=== PATIENT | male | born 1950 | race Caucasian/White ===

== ENCOUNTER 2022-07-01 11:46 | Inpatient (IN) | payer MEDICARE ==
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
[~2022-07-01] VITALS: Ht 182.9 cm; Wt 92.4 kg
[2022-07-01 11:45] VITALS: BP 139/81
[~2022-07-01 11:46] MED LIST: ACETAMINOPHEN 325 MG TABLET PO PRN; ALPRAZolam 0.25 MG (XANAX) TAB PO PRN; BISACODYL 10 MG SUPP (DULCOLAX) PR PRN; CALCIUM CARBONATE 500 MG (TUMS) TAB.CHEW PO PRN; DOCUSATE SODIUM 100 MG (COLACE) CAP PO PRN; FLEET ENEMA ADULT 1 EA BTL PR PRN; LOPERAMIDE 2 MG (IMODIUM) TABLET PO PRN; MELATONIN 3 MG TABLET PO PRN; ONDANSETRON 4 MG (ZOFRAN) ORAL DISSOLVE TAB PO PRN; diphenhydrAMINE 25 MG TAB (BENADRYL) PO PRN; guaiFENesin/CODEINE (ROBITUSSIN AC) 10ML UDC PO PRN
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
--- OUTSIDE RECORDS SUMMARY | 2022-07-01 11:56 | XMS REPORT | Encounter Summary ---
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 AND MG/DL 9:59 PM LAB MEDICINE POC CDT Anatomical Location / Laterality Collection Method / Volume Derrell ection Time Received Time Specimen (Source) 06/30/2022 9:58 PM CDT 07/01/19 9:59 PM CDT Jason Riggs MD OTHER LABORATORY City/State/ZIP Code Phone Number Performing Address [place] [address] [facility] AND [address] LAB MEDICINE POC * (ABNORMAL) POC GLUCOSE (06/30/2022 4:07 PM CDT) Pathologist Signature Component Value Ref Test Method Analysis Performed A t Range Time Glucose, POC 123 (H) 70 - 100 06/30/2022 [facility] DEPT PA TH AND MG/DL 4:08 PM LAB MEDICINE POC CDT Anatomical Location / Laterality Collection Method / Volume Derrell ection Time Received Time Specimen (Source) 06/30/2022 4:07 PM CDT 07/01/19 4:08 PM CDT Jason Riggs MD OTHER LABORATORY City/State/ZIP Code Phone Number Performing Address [place] [address] [employer] DEPT PATH AND [address] [facility] LAB MEDICINE POC * (ABNORMAL) POC GLUCOSE (06/30/2022 12:57 PM CDT) Pathologist Signature Component Value Ref Test Method Analysis Performed A t Range Time Glucose, POC 161 (H) 70 - 100 06/30/2022 [facility] DEPT PA TH AND MG/DL 12:58 PM LAB MEDICINE POC CDT Anatomical Location / Laterality Collection Method / Volume Derrell ection Time Received Time Specimen (Source) 06/30/2022 12:57 PM CDT 07/01/19 12:58 PM CDT Jason Riggs MD OTHER LABORATORY City/State/ZIP Code Phone Number Performing [place] [address] [employer] DEPT PATH AND [address] [facility] LAB MEDICINE POC * (ABNORMAL) POC GLUCOSE (06/30/2022 7:59 AM CDT) Pathologist Signature Component Value Ref Test Method Analysis Performed A t Range Time Glucose, POC 151 (H) 70 - 100 06/30/2022 [facility] DEPT PA TH AND MG/DL 8:00 AM LAB MEDICINE POC CDT Anatomical Location / Laterality Collection Method / Volume Derrell ection Time Received Time Specimen (Source) 06/30/2022 7:59 AM CDT 07/01/19 8:00 AM CDT Jason Riggs MD OTHER LABORATORY City/State/ZIP Code Phone Number Performing [place] [address] [employer] DEPT PATH AND [address] [facility] LAB MEDICINE POC * PHOSPHORUS (06/30/2022 5:47 AM CDT) Pathologist Signature Component Value Ref Test Method Analysis Performed A t Range Time Phosphorus 4.0 2.0 - 06/30/2022 [facility] DEPT PAT H AND 4.5 6:50 AM LAB MEDICINE MG/DL CDT Anatomical Location / Laterality Collection Method / Volume Derrell ection Time Received Time Specimen (Source) BLOOD / Unknown 06/30/2022 5:47 AM CDT 07/01/19 6:13 AM CDT Jason Riggs MD LABORATORY ORDERABLES City/State/ZIP Code Phone Number Performing [place] [address] [facility] DEPT PATH AND [address] LAB MEDICINE * MAGNESIUM (06/30/2022 5:47 AM CDT) Pathologist Signature Component Value Ref Test Method Analysis Performed A t Range Time Magnesium 2.1 1.6 - 06/30/2022 [facility] DEPT PAT H AND 2.6 6:50 AM LAB MEDICINE mg/dL CDT Anatomical Location / Laterality Collection Method / Volume Derrell ection Time Received Time Specimen (Source) BLOOD / Unknown 06/30/2022 5:47 AM CDT 07/01/19 23 6:13 AM CDT Jason Riggs MD LABORATORY ORDERABLES City/State/ZIP Code Phone Number Performing [place] [address] [facility] DEPT PATH AND [address] [facility] LAB MEDICINE * (ABNORMAL) CBC (06/30/2022 5:47 AM CDT) Pathologist Signature Component Value Ref Test Method Analysis Performed A t Range Time White Blood Cells 9.9 4.5 - 06/30/2022 [facility] DE PT PATH AND 11.0 6:28 AM LAB MEDICINE K/UL CDT RBC 3.37 (L) 4.4 - 06/30/2022 [facility] DEPT PAT H AND 5.5 M/UL 6:28 AM LAB MEDICINE CDT Hemoglobin 10.6 (L) 13.5 - 06/30/2022 [facility] DEPT PAT H AND 16.5 6:28 AM LAB MEDICINE GM/DL CDT Hematocrit 30.0 (L) 40 - 50 06/30/2022 [facility] DEPT PAT H AND % 6:28 AM LAB MEDICINE CDT MCV 88.9 80 - 100 06/30/2022 [facility] DEPT PAT H AND FL 6:28 AM LAB MEDICINE CDT MCH 31.6 26 - 34 06/30/2022 [facility] DEPT PAT H AND PG 6:28 AM LAB MEDICINE CDT MCHC 35.5 32.0 - 06/30/2022 [facility] DEPT PAT H AND 36.0 6:28 AM LAB MEDICINE G/DL CDT RDW 12.8 11 - 15 06/30/2022 [facility] DEPT PAT H AND % 6:28 AM LAB MEDICINE CDT Platelet Count 234 150 - 06/30/2022 [facility] DEPT PATH AND 400 K/UL 6:28 AM LAB MEDICINE CDT MPV 7.8 7 - 11 06/30/2022 [facility] DEPT PAT H AND FL 6:28 AM LAB MEDICINE CDT Anatomical Location / Laterality Collection Method / Volume Derrell ection Time Received Time Specimen (Source) BLOOD / Unknown 06/30/2022 5:47 AM CDT 07/01/19 6:13 AM CDT Jason Riggs MD LABORATORY ORDERABLES City/State/ZIP Code Phone Number Performing [place] [address] [facility] DEPT PATH AND [address] [facility]. LAB MEDICINE * (ABNORMAL) BASIC METABOLIC PANEL (06/30/2022 5:47 AM CDT) Pathologist Signature Component Value Ref Test Method Analysis Performed A t Range Time Sodium 134 (L) 137 - 06/30/2022 [facility] DEPT PAT H AND 147 6:50 AM LAB MEDICINE MMOL/L CDT Potassium 4.3 3.5 - 06/30/2022 [facility] DEPT PAT H AND 5.1 6:50 AM LAB MEDICINE MMOL/L CDT Chloride 98 98 - 110 06/30/2022 [facility] DEPT PAT H AND MMOL/L 6:50 AM LAB MEDICINE CDT CO2 27 21 - 30 06/30/2022 [facility] DEPT PAT H AND MMOL/L 6:50 AM LAB MEDICINE CDT Anion Gap 9 3 - 12 06/30/2022 [facility] DEPT PAT H AND 6:50 AM LAB MEDICINE CDT Glucose 139 (H) 70 - 100 06/30/2022 [facility] DEPT PAT H AND MG/DL 6:50 AM LAB MEDICINE CDT Blood Urea Nitrogen 12 7 - 25 06/30/2022 [facility] DEPT PATH AND MG/DL 6:50 AM LAB MEDICINE CDT Creatinine 0.64 0.4 - 06/30/2022 [facility] DEPT PAT H AND 1.24 6:50 AM LAB MEDICINE MG/DL CDT Calcium 8.5 8.5 - 06/30/2022 [facility] DEPT PAT H AND 10.6 6:50 AM LAB MEDICINE MG/DL CDT eGFR >60 >60 06/30/2022 [facility] DEPT PAT H AND mL/min 6:50 AM LAB MEDICINE CDT Comment: eGFR calculated using the CKD-EPIcr_R equation Anatomical Location / Laterality Collection Method / Volume Derrell ection Time Received Time Specimen (Source) BLOOD / Unknown 06/30/2022 5:47 AM CDT 07/01/19 6:13 AM CDT Jason Riggs MD LABORATORY ORDERABLES City/State/ZIP Code Phone Number Performing [place] [address] [facility] PATH AND [address] LAB MEDICINE * (ABNORMAL) POC GLUCOSE (06/29/2022 9:45 PM CDT) Pathologist Signature Component Value Ref Test Method Analysis Performed A t Range Time Glucose, POC 150 (H) 70 - 100 06/29/2022 [facility] DEPT PA TH AND MG/DL 9:46 PM LAB MEDICINE POC CDT Anatomical Location / Laterality Collection Method / Volume Derrell ection Time Received Time Specimen (Source) 06/29/2022 9:45 PM CDT 06/30/19 9:46 PM CDT Jason Riggs MD OTHER LABORATORY City/State/ZIP Code Phone Number Performing [place] [address] [facility] DE[facility] PATH AND [address] LAB MEDICINE POC * (ABNORMAL) POC GLUCOSE (06/29/2022 5:18 PM CDT) Pathologist Signature Component Value Ref Test Method Analysis Performed A t Range Time Glucose, POC 184 (H) 70 - 100 06/29/2022 [facility] DEPT PA TH AND MG/DL 5:19 PM LAB MEDICINE POC CDT Anatomical Location / Laterality Collection Method / Volume Derrell ection Time Received Time Specimen (Source) 06/29/2022 5:18 PM CDT 06/30/19 5:19 PM CDT Jason Riggs MD OTHER LABORATORY City/State/ZIP Code Phone Number Performing [place] [address] [facility] DE[facility] PATH AND [address] LAB MEDICINE POC * COVID-19 (SARS-COV-2) PCR (06/29/2022 1:25 PM CDT) Pathologist Signature Component Value Ref Test Method Analysis Performed A t Range Time COVID-19 FLOCKED SWAB 06/29/2022 [facility] DEPT PATH AND (SARS-CoV-2) PCR NASOPHARYNGE 1:12 PM LAB MEDICINE Source AL CDT COVID-19 NOT DETECTED DN-NOT 06/29/2022 [facility] AND (SARS-CoV-2) PCR DETECTED 4:32 [...] performance characteristics have been verified by the [facility] clinical laboratory. Fact sheet for providers: https://www.fda.gov/ media/525318/downloa d Fact sheet for patients: https://www.fda.gov/ media/006465/downloa d Anatomical Location / Laterality Collection Method / Volume Derrell ection Time Received Time Specimen (Source) NASOPHARYNGEAL STRUCTURE / Unknown 06/29/2022 1 :25 PM CDT 06/29/2022 1:32 PM CDT [employer] Celeste Landry MICROBIOLOGY ORDERABLES MASTER CONTROL OPERATOR-MAGNETIC HEALER City/State/ZIP Code Phone Number Performing Address Organization [place], [place] [id number] [place] [address] PATH AND [address] [facility] LAB MEDICINE * (ABNORMAL) POC GLUCOSE (06/29/2022 11:48 AM CDT) Pathologist Signature Component Value Ref Test Method Analysis Performed A t Range Time Glucose, POC 183 (H) 70 - 100 06/29/2022 [facility] AND MG/DL 11:49 AM LAB MEDICINE POC CDT Anatomical Location / Laterality Collection Method / Volume Derrell ection Time Received Time Specimen (Source) 06/29/2022 11:48 AM CDT 06/30/19 11:49 AM CDT Jason Riggs MD OTHER LABORATORY City/State/ZIP Code Phone Number Performing [place] [address] [facility] AND [address] LAB MEDICINE POC * (ABNORMAL) POC GLUCOSE (06/29/2022 8:28 AM CDT) Pathologist Signature Component Value Ref Test Method Analysis Performed A t Range Time Glucose, POC 185 (H) 70 - 100 06/29/2022 [facility] DEPT PA TH AND MG/DL 8:29 AM LAB MEDICINE POC CDT Anatomical Location / Laterality Collection Method / Volume Derrell ection Time Received Time Specimen (Source) 06/29/2022 8:28 AM CDT 06/30/19 8:29 AM CDT Jason Riggs MD OTHER LABORATORY City/State/ZIP Code Phone Number Performing [place] [address] [facility] DEPT PATH AND [address] LAB MEDICINE POC * PHOSPHORUS (06/29/2022 2:53 AM CDT) Pathologist Signature Component Value Ref Test Method Analysis Performed A t Range Time Phosphorus 3.8 2.0 - 06/29/2022 [facility] DEPT PAT H AND 4.5 3:34 AM LAB MEDICINE MG/DL CDT Anatomical Location / Laterality Collection Method / Volume Derrell ection Time Received Time Specimen (Source) BLOOD / Unknown 06/29/2022 2:53 AM CDT 06/30/19 3:02 AM CDT Jason Riggs MD LABORATORY ORDERABLES City/State/ZIP Code Phone Number Performing [place] [address] [facility] PATH AND [address] [facility] LAB MEDICINE * MAGNESIUM (06/29/2022 2:53 AM CDT) Pathologist Signature Component Value Ref Test Method Analysis Performed A t Range Time Magnesium 2.0 1.6 - 06/29/2022 [facility] DEPT PAT H AND 2.6 3:34 AM LAB MEDICINE mg/dL CDT Anatomical Location / Laterality Collection Method / Volume Derrell ection Time Received Time Specimen (Source) BLOOD / Unknown 06/29/2022 2:53 AM CDT 06/30/19 3:02 AM CDT Jason Riggs MD LABORATORY ORDERABLES [facility]/State/ZIP Code Phone Number Performing Address [place] [address] [facility] DE[facility] PATH AND [address] [facility] LAB MEDICINE * (ABNORMAL) CBC (06/29/2022 2:53 AM CDT) Pathologist Signature Component Value Ref Test Method Analysis Performed A t Range Time White Blood Cells 12.2 (H) 4.5 - 06/29/2022 [facility] DE PT PATH AND 11.0 3:10 AM LAB MEDICINE K/UL CDT RBC 3.28 (L) 4.4 - 06/29/2022 [facility] DEPT PAT H AND 5.5 M/UL 3:10 AM LAB MEDICINE CDT Hemoglobin 10.3 (L) 13.5 - 06/29/2022 [facility] DEPT PAT H AND 16.5 3:10 AM LAB MEDICINE GM/DL CDT Hematocrit 29.3 (L) 40 - 50 06/29/2022 [facility] DEPT PAT H AND % 3:10 AM LAB MEDICINE CDT MCV 89.3 80 - 100 06/29/2022 [facility] DEPT PAT H AND FL 3:10 AM LAB MEDICINE CDT MCH 31.3 26 - 34 06/29/2022 [facility] DEPT PAT H AND PG 3:10 AM LAB MEDICINE CDT MCHC 35.1 32.0 - 06/29/2022 [facility] DEPT PAT H AND 36.0 3:10 AM LAB MEDICINE G/DL CDT RDW 13.1 11 - 15 06/29/2022 [facility] DEPT PAT H AND % 3:10 AM LAB MEDICINE CDT Platelet Count 227 150 - 06/29/2022 [facility] DEPT PATH AND 400 K/UL 3:10 AM LAB MEDICINE CDT MPV 7.6 7 - 11 06/29/2022 [facility] DEPT PAT H AND FL 3:10 AM LAB MEDICINE CDT Anatomical Location / Laterality Collection Method / Volume Derrell ection Time Received Time Specimen (Source) BLOOD / Unknown 06/29/2022 2:53 AM CDT 06/30/19 23 3:02 AM CDT Jason Riggs MD LABORATORY ORDERABLES City/State/ZIP Code Phone Number Performing [place] [address] [facility] DEPT PATH AND [address] [facility] LAB MEDICINE * (ABNORMAL) BASIC METABOLIC PANEL (06/29/2022 2:53 AM CDT) Pathologist Signature Component Value Ref Test Method Analysis Performed A t Range Time Sodium 134 (L) 137 - 06/29/2022 [facility] DEPT PAT H AND 147 3:34 AM LAB MEDICINE MMOL/L CDT Potassium 4.3 3.5 - 06/29/2022 [facility] DEPT PAT H AND 5.1 3:34 AM LAB MEDICINE MMOL/L CDT Chloride 98 98 - 110 06/29/2022 [facility] DEPT PAT H AND MMOL/L 3:34 AM LAB MEDICINE CDT CO2 23 21 - 30 06/29/2022 [facility] DEPT PAT H AND MMOL/L 3:34 AM LAB MEDICINE CDT Anion Gap 13 (H) 3 - 12 06/29/2022 [facility] DEPT PAT H AND 3:34 AM LAB MEDICINE CDT Glucose 171 (H) 70 - 100 06/29/2022 [facility] DEPT PAT H AND MG/DL 3:34 AM LAB MEDICINE CDT Blood Urea Nitrogen 10 7 - 25 06/29/2022 [facility] DEPT PATH AND MG/DL 3:34 AM LAB MEDICINE CDT Creatinine 0.51 0.4 - 06/29/2022 [facility] DEPT PAT H AND 1.24 3:34 AM LAB MEDICINE MG/DL CDT Calcium 8.2 (L) 8.5 - 06/29/2022 [facility] DEPT PAT H AND 10.6 3:34 AM LAB MEDICINE MG/DL CDT eGFR >60 >60 06/29/2022 [facility] DEPT PAT H AND mL/min 3:34 AM LAB MEDICINE CDT Comment: eGFR calculated using the CKD-EPIcr_R equation Anatomical Location / Laterality Collection Method / Volume Derrell ection Time Received Time Specimen (Source) BLOOD / Unknown 06/29/2022 2:53 AM CDT 06/30/19 3:02 AM CDT Jason Riggs MD LABORATORY ORDERABLES City/State/ZIP Code Phone Number Performing [place] [address] [facility] DEPT PATH AND [address] [facility]. LAB MEDICINE * (ABNORMAL) POC GLUCOSE (06/28/2022 8:34 PM CDT) Pathologist Signature Component Value Ref Test Method Analysis Performed A t Range Time Glucose, POC 171 (H) 70 - 100 06/28/2022 [facility] DEPT PA TH AND MG/DL 8:35 PM LAB MEDICINE POC CDT Anatomical Location / Laterality Collection Method / Volume Derrell ection Time Received Time Specimen (Source) 06/28/2022 8:34 PM CDT 06/29/19 8:35 PM CDT Jason Riggs MD OTHER LABORATORY City/State/ZIP Code Phone Number Performing [place] [address] [facility] AND [address] [facility] LAB MEDICINE POC * (ABNORMAL) POC GLUCOSE (06/28/2022 4:02 PM CDT) Pathologist Signature Component Value Ref Test Method Analysis Performed A t Range Time Glucose, POC 179 (H) 70 - 100 06/28/2022 [facility] DEPT PA TH AND MG/DL 4:03 PM LAB MEDICINE POC CDT Anatomical Location / Laterality Collection Method / Volume Derrell ection Time Received Time Specimen (Source) 06/28/2022 4:02 PM CDT 06/29/19 4:03 PM CDT Jason Riggs MD OTHER LABORATORY City/State/ZIP Code Phone Number Performing [place] [address] [facility] AND [address] [facility] LAB MEDICINE POC * (ABNORMAL) POC GLUCOSE (06/28/2022 11:08 AM CDT) Pathologist Signature Component Value Ref Test Method Analysis Performed A t Range Time Glucose, POC 177 (H) 70 - 100 06/28/2022 [facility] DEPT PA TH AND MG/DL 11:09 AM LAB MEDICINE POC CDT Anatomical Location / Laterality Collection Method / Volume Derrell ection Time Received Time Specimen (Source) 06/28/2022 11:08 AM CDT 06/29/19 11:09 AM CDT Jason Riggs MD OTHER LABORATORY City/State/ZIP Code Phone Number Performing [place] [address] [facility] AND [address] [facility] LAB MEDICINE POC * (ABNORMAL) POC GLUCOSE (06/28/2022 7:17 AM CDT) Pathologist Signature Component Value Ref Test Method Analysis Performed A t Range Time Glucose, POC 182 (H) 70 - 100 06/28/2022 [facility] DEPT PA TH AND MG/DL 7:18 AM LAB MEDICINE POC CDT Anatomical Location / Laterality Collection Method / Volume Derrell ection Time Received Time Specimen (Source) 06/28/2022 7:17 AM CDT 06/29/19 7:18 AM CDT Jason Riggs MD OTHER LABORATORY City/State/ZIP Code Phone Number Performing [place] [address] [facility] AND [address] [facility] LAB MEDICINE POC * PHOSPHORUS (06/28/2022 3:03 AM CDT) Pathologist Signature Component Value Ref Test Method Analysis Performed A t Range Time Phosphorus 2.7 2.0 - 06/28/2022 [facility] DEPT PAT H AND 4.5 3:56 AM LAB MEDICINE MG/DL CDT Anatomical Location / Laterality Collection Method / Volume Derrell ection Time Received Time Specimen (Source) BLOOD / Unknown 06/28/2022 3:03 AM CDT 06/29/19 3:16 AM CDT Jason Riggs MD LABORATORY ORDERABLES City/State/ZIP Code Phone Number Performing [place] [address] [facility] DE[facility] PATH AND [address] [facility] * MAGNESIUM (06/28/2022 3:03 AM CDT) Pathologist Signature Component Value Ref Test Method Analysis Performed A t Range Time Magnesium 1.7 1.6 - 06/28/2022 [facility] DEPT PAT H AND 2.6 3:56 AM LAB MEDICINE mg/dL CDT Anatomical Location / Laterality Collection Method / Volume Derrell ection Time Received Time Specimen (Source) BLOOD / Unknown 06/28/2022 3:03 AM CDT 06/29/19 3:16 AM CDT Jason Riggs MD LABORATORY ORDERABLES City/State/ZIP Code Phone Number Performing [place] [address] [employer] DEPT PATH AND [address] [facility] * (ABNORMAL) CBC (06/28/2022 3:03 AM CDT) Pathologist Signature Component Value Ref Test Method Analysis Performed A t Range Time White Blood Cells 8.1 4.5 - 06/28/2022 [facility] DE PT PATH AND 11.0 3:26 AM LAB MEDICINE K/UL CDT RBC 3.15 (L) 4.4 - 06/28/2022 [facility] DEPT PAT H AND 5.5 M/UL 3:26 AM LAB MEDICINE CDT Hemoglobin 9.9 (L) 13.5 - 06/28/2022 [facility] DEPT PAT H AND 16.5 3:26 AM LAB MEDICINE GM/DL CDT Hematocrit 27.9 (L) 40 - 50 06/28/2022 [facility] DEPT PAT H AND % 3:26 AM LAB MEDICINE CDT MCV 88.6 80 - 100 06/28/2022 [facility] DEPT PAT H AND FL 3:26 AM LAB MEDICINE CDT MCH 31.5 26 - 34 06/28/2022 [facility] DEPT PAT H AND PG 3:26 AM LAB MEDICINE CDT MCHC 35.5 32.0 - 06/28/2022 [facility] DEPT PAT H AND 36.0 3:26 AM LAB MEDICINE G/DL CDT RDW 13.1 11 - 15 06/28/2022 [facility] DEPT PAT H AND % 3:26 AM LAB MEDICINE CDT Platelet Count 178 150 - 06/28/2022 [facility] DEPT PATH AND 400 K/UL 3:26 AM LAB MEDICINE CDT MPV 7.4 7 - 11 06/28/2022 [facility] DEPT PAT H AND FL 3:26 AM LAB MEDICINE CDT Anatomical Location / Laterality Collection Method / Volume Derrell ection Time Received Time Specimen (Source) BLOOD / Unknown 06/28/2022 3:03 AM CDT 06/29/19 23 3:16 AM CDT Jason Riggs MD LABORATORY ORDERABLES City/State/ZIP Code Phone Number Performing Address [place] [address] [facility] DEPT PATH AND [address] [facility] LAB MEDICINE * (ABNORMAL) BASIC METABOLIC PANEL (06/28/2022 3:03 AM CDT) Pathologist Signature Component Value Ref Test Method Analysis Performed A t Range Time Sodium 134 (L) 137 - 06/28/2022 [facility] DEPT PAT H AND 147 3:56 AM LAB MEDICINE MMOL/L CDT Potassium 3.9 3.5 - 06/28/2022 [facility] DEPT PAT H AND 5.1 3:56 AM LAB MEDICINE MMOL/L CDT Chloride 100 98 - 110 06/28/2022 [facility] DEPT PAT H AND MMOL/L 3:56 AM LAB MEDICINE CDT CO2 25 21 - 30 06/28/2022 [facility] DEPT PAT H AND MMOL/L 3:56 AM LAB MEDICINE CDT Anion Gap 9 3 - 12 06/28/2022 [facility] DEPT PAT H AND 3:56 AM LAB MEDICINE CDT Glucose 165 (H) 70 - 100 06/28/2022 [facility] DEPT PAT H AND MG/DL 3:56 AM LAB MEDICINE CDT Blood Urea Nitrogen 9 7 - 25 06/28/2022 [facility] DEPT PATH AND MG/DL 3:56 AM LAB MEDICINE CDT Creatinine 0.42 0.4 - 06/28/2022 [facility] DEPT PAT H AND 1.24 3:56 AM LAB MEDICINE MG/DL CDT Calcium 8.3 (L) 8.5 - 06/28/2022 [facility] DEPT PAT H AND 10.6 3:56 AM LAB MEDICINE MG/DL CDT eGFR >60 >60 06/28/2022 [facility] DEPT PAT H AND mL/min 3:56 AM LAB MEDICINE CDT Comment: eGFR calculated using the CKD-EPIcr_R equation Anatomical Location / Laterality Collection Method / Volume Derrell ection Time Received Time Specimen (Source) BLOOD / Unknown 06/28/2022 3:03 AM CDT 06/29/19 3:16 AM CDT Jason Riggs MD LABORATORY ORDERABLES City/State/ZIP Code Phone Number Performing [place] [address] [facility] AND [address] [facility] LAB MEDICINE * (ABNORMAL) POC GLUCOSE (06/27/2022 9:36 PM CDT) Pathologist Signature Component Value Ref Test Method Analysis Performed A t Range Time Glucose, POC 207 (H) 70 - 100 06/27/2022 [facility] DEPT PA TH AND MG/DL 9:37 PM LAB MEDICINE POC CDT Anatomical Location / Laterality Collection Method / Volume Derrell ection Time Received Time Specimen (Source) 06/27/2022 9:36 PM CDT 06/28/19 9:37 PM CDT Jason Riggs MD OTHER LABORATORY City/State/ZIP Code Phone Number Performing [place] [address] [facility] AND [address] LAB MEDICINE POC * (ABNORMAL) POC GLUCOSE (06/27/2022 3:43 PM CDT) Pathologist Signature Component Value Ref Test Method Analysis Performed A t Range Time Glucose, POC 194 (H) 70 - 100 06/27/2022 [facility] DEPT PA TH AND MG/DL 3:44 PM LAB MEDICINE POC CDT Anatomical Location / Laterality Collection Method / Volume Derrell ection Time Received Time Specimen (Source) 06/27/2022 3:43 PM CDT 06/28/19 3:44 PM CDT Jason Riggs MD OTHER LABORATORY City/State/ZIP Code Phone Number Performing Address [place] [address] [facility] AND [address] [facility] LAB MEDICINE POC * (ABNORMAL) POC GLUCOSE (06/27/2022 11:33 AM CDT) Pathologist Signature Component Value Ref Test Method Analysis Performed A t Range Time Glucose, POC 183 (H) 70 - 100 06/27/2022 [facility] DEPT PA TH AND MG/DL 11:34 AM LAB MEDICINE POC CDT Anatomical Location / Laterality Collection Method / Volume Derrell ection Time Received Time Specimen (Source) 06/27/2022 11:33 AM CDT 06/28/19 11:34 AM CDT Jason Riggs MD OTHER LABORATORY City/State/ZIP Code Phone Number Performing Address [place] [address] [employer] DEPT PATH AND [address] [facility] LAB MEDICINE POC * (ABNORMAL) POC GLUCOSE (06/27/2022 6:18 AM CDT) Pathologist Signature Component Value Ref Test Method Analysis Performed A t Range Time Glucose, POC 206 (H) 70 - 100 06/27/2022 [facility] DEPT PA TH AND MG/DL 6:19 AM LAB MEDICINE POC CDT Anatomical Location / Laterality Collection Method / Volume Derrell ection Time Received Time Specimen (Source) 06/27/2022 6:18 AM CDT 06/28/19 6:19 AM CDT Jason Riggs MD OTHER LABORATORY City/State/ZIP Code Phone Number Performing Address [place] [address] [employer] DEPT PATH AND [address] [facility] LAB MEDICINE POC * PHOSPHORUS (06/27/2022 2:48 AM CDT) Pathologist Signature Component Value Ref Test Method Analysis Performed A t Range Time Phosphorus 4.0 2.0 - 06/27/2022 [facility] DEPT PAT H AND 4.5 3:29 AM LAB MEDICINE MG/DL CDT Anatomical Location / Laterality Collection Method / Volume Derrell ection Time Received Time Specimen (Source) BLOOD / Unknown 06/27/2022 2:48 AM CDT 06/28/19 2:53 AM CDT Jason Riggs MD LABORATORY ORDERABLES City/State/ZIP Code Phone Number Performing Address [place] [address] [facility] AND [address] LAB MEDICINE * MAGNESIUM (06/27/2022 2:48 AM CDT) Pathologist Signature Component Value Ref Test Method Analysis Performed A t Range Time Magnesium 1.9 1.6 - 06/27/2022 [facility] DEPT PAT H AND 2.6 3:29 AM LAB MEDICINE mg/dL CDT Anatomical Location / Laterality Collection Method / Volume Derrell ection Time Received Time Specimen (Source) BLOOD / Unknown 06/27/2022 2:48 AM CDT 06/28/19 23 2:53 AM CDT Jason Riggs MD LABORATORY ORDERABLES City/State/ZIP Code Phone Number Performing Address [place] [address] [employer] DEPT PATH AND [address] [facility]. LAB MEDICINE * (ABNORMAL) BASIC METABOLIC PANEL (06/27/2022 2:48 AM CDT) Pathologist Signature Component Value Ref Test Method Analysis Performed A t Range Time Sodium 133 (L) 137 - 06/27/2022 [facility] DEPT PAT H AND 147 3:29 AM LAB MEDICINE MMOL/L CDT Potassium 4.8 3.5 - 06/27/2022 [facility] DEPT PAT H AND 5.1 3:29 AM LAB MEDICINE MMOL/L CDT Chloride 102 98 - 110 06/27/2022 [facility] DEPT PAT H AND MMOL/L 3:29 AM LAB MEDICINE CDT CO2 22 21 - 30 06/27/2022 [facility] DEPT PAT H AND MMOL/L 3:29 AM LAB MEDICINE CDT Anion Gap 9 3 - 12 06/27/2022 [facility] DEPT PAT H AND 3:29 AM LAB MEDICINE CDT Glucose 201 (H) 70 - 100 06/27/2022 [facility] DEPT PAT H AND MG/DL 3:29 AM LAB MEDICINE CDT Blood Urea Nitrogen 13 7 - 25 06/27/2022 [facility] DEPT PATH AND MG/DL 3:29 AM LAB MEDICINE CDT Creatinine 0.61 0.4 - 06/27/2022 [facility] DEPT PAT H AND 1.24 3:29 AM LAB MEDICINE MG/DL CDT Calcium 8.0 (L) 8.5 - 06/27/2022 [facility] DEPT PAT H AND 10.6 3:29 AM LAB MEDICINE MG/DL CDT eGFR >60 >60 06/27/2022 [facility] DEPT PAT H AND mL/min 3:29 AM LAB MEDICINE CDT Comment: eGFR calculated using the CKD-EPIcr_R equation Anatomical Location / Laterality Collection Method / Volume Derrell ection Time Received Time Specimen (Source) BLOOD / Unknown 06/27/2022 2:48 AM CDT 06/28/19 2:53 AM CDT Jason Riggs MD LABORATORY ORDERABLES City/State/ZIP Code Phone Number Performing Address [place] [address] [facility] DEPT PATH AND [address] [facility] LAB MEDICINE * (ABNORMAL) CBC (06/27/2022 2:48 AM CDT) Pathologist Signature Component Value Ref Test Method Analysis Performed A t Range Time White Blood Cells 8.2 4.5 - 06/27/2022 [facility] DE PT PATH AND 11.0 3:04 AM LAB MEDICINE K/UL CDT RBC 3.42 (L) 4.4 - 06/27/2022 [facility] DEPT PAT H AND 5.5 M/UL 3:04 AM LAB MEDICINE CDT Hemoglobin 10.7 (L) 13.5 - 06/27/2022 [facility] DEPT PAT H AND 16.5 3:04 AM LAB MEDICINE GM/DL CDT Hematocrit 30.3 (L) 40 - 50 06/27/2022 [facility] DEPT PAT H AND % 3:04 AM LAB MEDICINE CDT MCV 88.6 80 - 100 06/27/2022 [facility] DEPT PAT H AND FL 3:04 AM LAB MEDICINE CDT MCH 31.4 26 - 34 06/27/2022 [facility] DEPT PAT H AND PG 3:04 AM LAB MEDICINE CDT MCHC 35.4 32.0 - 06/27/2022 [facility] DEPT PAT H AND 36.0 3:04 AM LAB MEDICINE G/DL CDT RDW 13.0 11 - 15 06/27/2022 [facility] DEPT PAT H AND % 3:04 AM LAB MEDICINE CDT Platelet Count 188 150 - 06/27/2022 [facility] DEPT PATH AND 400 K/UL 3:04 AM LAB MEDICINE CDT MPV 7.6 7 - 11 06/27/2022 [facility] DEPT PAT H AND FL 3:04 AM LAB MEDICINE CDT Anatomical Location / Laterality Collection Method / Volume Derrell ection Time Received Time Specimen (Source) BLOOD / Unknown 06/27/2022 2:48 AM CDT 06/28/19 2:53 AM CDT Jason Riggs MD LABORATORY ORDERABLES City/State/ZIP Code Phone Number Performing Address [place] [address] [facility] DEPT PATH AND [address] [facility] LAB MEDICINE * CT SPINE CERVICAL WO CONTRAST [...] AM. Jason Riggs MD CT ORDERABLES * (ABNORMAL) POC GLUCOSE (06/26/2022 8:30 PM CDT) Pathologist Signature Component Value Ref Test Method Analysis Performed A t Range Time Glucose, POC 212 (H) 70 - 100 06/26/2022 [facility] DEPT PA TH AND MG/DL 8:31 PM LAB MEDICINE POC CDT Anatomical Location / Laterality Collection Method / Volume Derrell ection Time Received Time Specimen (Source) 06/26/2022 8:30 PM CDT 06/27/19 8:31 PM CDT Jason Riggs MD OTHER LABORATORY City/State/ZIP Code Phone Number Performing Address [place] [address] [facility] DEPT PATH AND [address] [facility] LAB MEDICINE POC * (ABNORMAL) BASIC METABOLIC PANEL (06/26/2022 7:22 PM CDT) Pathologist Signature Component Value Ref Test Method Analysis Performed A t Range Time Sodium 134 (L) 137 - 06/26/2022 [facility] DEPT PAT H AND 147 7:59 PM LAB MEDICINE MMOL/L CDT Potassium 4.9 3.5 - 06/26/2022 [facility] DEPT PAT H AND 5.1 7:59 PM LAB MEDICINE MMOL/L CDT Chloride 102 98 - 110 06/26/2022 [facility] DEPT PAT H AND MMOL/L 7:59 PM LAB MEDICINE CDT CO2 19 (L) 21 - 30 06/26/2022 [facility] DEPT PAT H AND MMOL/L 7:59 PM LAB MEDICINE CDT Anion Gap 13 (H) 3 - 12 06/26/2022 [facility] DEPT PAT H AND 7:59 PM LAB MEDICINE CDT Glucose 216 (H) 70 - 100 06/26/2022 [facility] DEPT PAT H AND MG/DL 7:59 PM LAB MEDICINE CDT Blood Urea Nitrogen 12 7 - 25 06/26/2022 [facility] DEPT PATH AND MG/DL 7:59 PM LAB MEDICINE CDT Creatinine 0.63 0.4 - 06/26/2022 [facility] DEPT PAT H AND 1.24 7:59 PM LAB MEDICINE MG/DL CDT Calcium 8.0 (L) 8.5 - 06/26/2022 [facility] DEPT PAT H AND 10.6 7:59 PM LAB MEDICINE MG/DL CDT eGFR >60 >60 06/26/2022 [facility] DEPT PAT H AND mL/min 7:59 PM LAB MEDICINE CDT Comment: eGFR calculated using the CKD-EPIcr_R equation Anatomical Location / Laterality Collection Method / Volume Derrell ection Time Received Time Specimen (Source) BLOOD / Unknown 06/26/2022 7:22 PM CDT 06/27/19 7:27 PM CDT Jason Riggs MD LABORATORY ORDERABLES City/State/ZIP Code Phone Number Performing [place] [address] [facility] DEPT PATH AND [address] [facility] LAB MEDICINE * IONIZED CALCIUM (06/26/2022 7:22 PM CDT) Pathologist Signature Component Value Ref Test Method Analysis Performed A t Range Time Ionized Calcium 1.03 1.0 - 06/26/2022 [facility] DEPT PATH AND 1.3 7:32 PM LAB MEDICINE MMOL/L CDT Anatomical Location / Laterality Collection Method / Volume Derrell ection Time Received Time Specimen (Source) BLOOD / Unknown 06/26/2022 7:22 PM CDT 06/27/19 23 7:28 PM CDT Jason Riggs MD LABORATORY ORDERABLES [facility]/ZIP Code Phone Number Performing Address [place] [address] [employer] DEPT PATH AND [address] LAB MEDICINE * PHOSPHORUS (06/26/2022 7:22 PM CDT) Pathologist Signature Component Value Ref Test Method Analysis Performed A t Range Time Phosphorus 4.1 2.0 - 06/26/2022 [facility] DEPT PAT H AND 4.5 7:59 PM LAB MEDICINE MG/DL CDT Anatomical Location / Laterality Collection Method / Volume Derrell ection Time Received Time Specimen (Source) BLOOD / Unknown 06/26/2022 7:22 PM CDT 06/27/19 23 7:27 PM CDT Jason Riggs MD LABORATORY BucmiABLES [facility]/ZIP Code Phone Number Performing Address [place] [address] [employer] DEPT PATH AND [address] LAB MEDICINE * MAGNESIUM (06/26/2022 7:22 PM CDT) Pathologist Signature Component Value Ref Test Method Analysis Performed A t Range Time Magnesium 2.0 1.6 - 06/26/2022 [facility] DEPT PAT H AND 2.6 7:59 PM LAB MEDICINE mg/dL CDT Anatomical Location / Laterality Collection Method / Volume Derrell ection Time Received Time Specimen (Source) BLOOD / Unknown 06/26/2022 7:22 PM CDT 06/27/19 7:27 PM CDT Jason Riggs MD LABORATORY BucmiABLES [facility]/ZIP Code Phone Number Performing Address [place] [address] [employer] DEPT PATH AND [address] LAB MEDICINE * (ABNORMAL) CBC (06/26/2022 7:22 PM CDT) Pathologist Signature Component Value Ref Test Method Analysis Performed A t Range Time White Blood Cells 10.1 4.5 - 06/26/2022 [facility] DE PT PATH AND 11.0 7:38 PM LAB MEDICINE K/UL CDT RBC 3.98 (L) 4.4 - 06/26/2022 [facility] DEPT PAT H AND 5.5 M/UL 7:38 PM LAB MEDICINE CDT Hemoglobin 12.1 (L) 13.5 - 06/26/2022 [facility] DEPT PAT H AND 16.5 7:38 PM LAB MEDICINE GM/DL CDT Hematocrit 35.4 (L) 40 - 50 06/26/2022 [facility] DEPT PAT H AND % 7:38 PM LAB MEDICINE CDT MCV 89.0 80 - 100 06/26/2022 [facility] DEPT PAT H AND FL 7:38 PM LAB MEDICINE CDT MCH 30.3 26 - 34 06/26/2022 [facility] DEPT PAT H AND PG 7:38 PM LAB MEDICINE CDT MCHC 34.0 32.0 - 06/26/2022 [facility] DEPT PAT H AND 36.0 7:38 PM LAB MEDICINE G/DL CDT RDW 13.0 11 - 15 06/26/2022 [facility] DEPT PAT H AND % 7:38 PM LAB MEDICINE CDT Platelet Count 178 150 - 06/26/2022 [facility] DEPT PATH AND 400 K/UL 7:38 PM LAB MEDICINE CDT MPV 7.4 7 - 11 06/26/2022 [facility] DEPT PAT H AND FL 7:38 PM LAB MEDICINE CDT Anatomical Location / Laterality Collection Method / Volume Derrell ection Time Received Time Specimen (Source) BLOOD / Unknown 06/26/2022 7:22 PM CDT 06/27/19 7:27 PM CDT Jason Riggs MD LABORATORY ORDERABLES City/State/ZIP Code Phone Number Performing [place] [address] [facility] DEPT PATH AND [address] [facility] LAB MEDICINE * FLUORO MOBILE IN [place] (06/26/2022 5:18 PM CDT) Anatomical Location / Laterality Collection Method / Volume Derrell ection Time Received Time Specimen (Source) Narrative [facility] - 06/26/2022 5:19 PM CDT This order has been auto finalized and does not contain a result. Jonathan Salas FLUOROSCOPY ORDERABLES City/State/ZIP Code Phone Number Performing Address Organization [facility] * O ARM FLUOROSCOPY (06/26/2022 5:17 PM [...] AM. Jonathan Salas FLUOROSCOPY ORDERABLES MD * LACTIC ACID (BG - RAPID LACTATE) (06/26/2022 3:26 PM CDT) Pathologist Signature Component Value Ref Test Method Analysis Performed A t Range Time Lactic Acid,BG 1.0 0.5 - 06/26/2022 [facility] DEPT PATH AND 2.0 3:41 PM LAB MEDICINE MMOL/L CDT Anatomical Location / Laterality Collection Method / Volume Derrlel ection Time Received Time Specimen (Source) BLOOD / Unknown 06/26/2022 3:26 PM CDT 06/27/19 3:30 PM CDT Perfecto Kamara MD OTHER LABORATORY City/State/ZIP Code Phone Number Performing [place] [address] [facility] AND [address] [facility] * POTASSIUM, BG (06/26/2022 3:26 PM CDT) [...] City/State/ZIP Code Phone Number Performing [place] [address] [facility] AND [address] [facility] * (ABNORMAL) SODIUM,BG (06/26/2022 3:26 PM CDT) Pathologist Signature Component Value Ref Test Method Analysis Performed A t Range Time Sodium 134 (L) 137 - 06/26/2022 [facility] DEPT PAT H AND 147 3:41 PM LAB MEDICINE MMOL/L CDT Anatomical Location / Laterality Collection Method / Volume Derrell ection Time Received Time Specimen (Source) BLOOD / Unknown 06/26/2022 3:26 PM CDT 06/27/19 3:30 PM CDT Perfecto Kamara MD OTHER LABORATORY City/State/ZIP Code Phone Number Performing [place] [address] [facility] DEPT PATH AND [address] [facility] * IONIZED CALCIUM,BG (06/26/2022 3:26 PM CDT) Pathologist Signature Component Value Ref Test Method Analysis Performed A t Range Time Ionized Calcium 1.14 1.0 - 06/26/2022 [facility] DEPT PATH AND 1.3 3:41 PM LAB MEDICINE MMOL/L CDT Anatomical Location / Laterality Collection Method / Volume Derrell ection Time Received Time Specimen (Source) BLOOD / Unknown 06/26/2022 3:26 PM CDT 06/27/19 3:30 PM CDT Perfecto Kamara MD OTHER LABORATORY City/State/ZIP Code Phone Number Performing Address [place] [address] [facility] DEPT PATH AND [address] [facility] LAB MEDICINE * (ABNORMAL) GLUCOSE,BG (06/26/2022 3:26 PM CDT) Pathologist Signature Component Value Ref Test Method Analysis Performed A t Range Time Glucose 192 (H) 70 - 100 06/26/2022 [facility] DEPT PAT H AND MG/DL 3:41 PM LAB MEDICINE CDT Anatomical Location / Laterality Collection Method / Volume Derrell ection Time Received Time Specimen (Source) BLOOD / Unknown 06/26/2022 3:26 PM CDT 06/27/19 3:30 PM CDT Perfecto Kamara MD OTHER LABORATORY City/State/ZIP Code Phone Number Performing Address [place] [address] [facility] DEPT PATH AND [address] [facility] LAB MEDICINE * (ABNORMAL) BLOOD GASES, ARTERIAL (06/26/2022 3:26 PM CDT) Pathologist Signature Component Value Ref Test Method Analysis Performed A t Range Time pH-Arterial 7.37 7.35 - 06/26/2022 [facility] DEPT PAT H AND 7.45 3:41 PM LAB MEDICINE CDT pCO2-Arterial 39 35 - 45 06/26/2022 [facility] DEPT P ATH AND MMHG 3:41 PM LAB MEDICINE CDT pO2-Arterial 151 (H) 80 - 100 06/26/2022 [facility] DEPT PA TH AND MMHG 3:41 PM LAB MEDICINE CDT Base 2.3 MMOL/L 06/26/2022 [facility] DEPT PAT H AND Deficit-Arterial 3:41 PM LAB MEDICINE CDT O2 Sat-Arterial 97.3 95 - 99 06/26/2022 [facility] DEPT PATH AND % 3:41 PM LAB MEDICINE CDT Rhozvcrhygo-WEI-Fbh 22.5 21 - 28 06/26/2022 [facility] DEPT PATH AND MMOL/L 3:41 PM LAB MEDICINE CDT Anatomical Location / Laterality Collection Method / Volume Derrell ection Time Received Time Specimen (Source) BLOOD / Unknown 06/26/2022 3:26 PM CDT 06/27/19 3:30 PM CDT Blood, arterial Perfecto Kamara MD OTHER LABORATORY City/State/ZIP Code Phone Number Performing Address Organization [place] DEPT PATH AND [address] [facility] LAB MEDICINE * (ABNORMAL) HEMOGLOBIN & HEMATOCRIT, BG (06/26/2022 3:26 PM CDT) Pathologist Signature Component Value Ref Test Method Analysis Performed A t Range Time Hemoglobin BG 13.0 (L) 13.5 - 06/26/2022 [facility] DEPT P ATH AND 16.5 3:41 PM LAB MEDICINE GM/DL CDT Hematocrit BG 39.9 (L) 40 - 50 06/26/2022 [facility] DEPT P ATH AND % 3:41 PM LAB MEDICINE CDT Anatomical Location / Laterality Collection Method / Volume Derrell ection Time Received Time Specimen (Source) BLOOD / Unknown 06/26/2022 3:26 PM CDT 06/27/19 3:30 PM CDT Perfecto Kamara MD OTHER LABORATORY City/State/ZIP Code Phone Number Performing Address Organization [place], [place] [id number] [address] DEPT PATH AND [address] [facility] LAB [facility] * (ABNORMAL) POC GLUCOSE (06/26/2022 6:33 AM CDT) Pathologist Signature Component Value Ref Test Method Analysis Performed A t Range Time Glucose, POC 128 (H) 70 - 100 06/26/2022 [facility] DEPT PA TH AND MG/DL 6:34 AM LAB MEDICINE POC CDT Anatomical Location / Laterality Collection Method / Volume Derrell ection Time Received Time Specimen (Source) 06/26/2022 6:33 AM CDT 06/27/19 6:34 AM CDT Jason Riggs MD OTHER LABORATORY City/State/ZIP Code Phone Number Performing Address Organization [address] DEPT PATH AND [address] [place] [address] LAB MEDICINE POC * PHOSPHORUS (06/26/2022 4:13 AM CDT) Pathologist Signature Component Value Ref Test Method Analysis Performed A t Range Time Phosphorus 3.4 2.0 - 06/26/2022 [facility] DEPT PAT H AND 4.5 5:02 AM LAB MEDICINE MG/DL CDT Anatomical Location / Laterality Collection Method / Volume Derrell ection Time Received Time Specimen (Source) BLOOD / Unknown 06/26/2022 4:13 AM CDT 06/27/19 4:19 AM CDT Jason Riggs MD LABORATORY ORDERABLES City/State/ZIP Code Phone Number Performing Address [place] [address] [employer] DEPT PATH AND [address] LAB MEDICINE * MAGNESIUM (06/26/2022 4:13 AM CDT) Pathologist Signature Component Value Ref Test Method Analysis Performed A t Range Time Magnesium 1.9 1.6 - 06/26/2022 [facility] DEPT PAT H AND 2.6 5:02 AM LAB MEDICINE mg/dL CDT Anatomical Location / Laterality Collection Method / Volume Derrell ection Time Received Time Specimen (Source) BLOOD / Unknown 06/26/2022 4:13 AM CDT 06/27/19 4:19 AM CDT Jasno Riggs MD LABORATORY ORDERABLES City/State/ZIP Code Phone Number Performing [place] [address] [employer] DEPT PATH AND [address] LAB MEDICINE * (ABNORMAL) BASIC METABOLIC PANEL (06/26/2022 4:13 AM CDT) Pathologist Signature Component Value Ref Test Method Analysis Performed A t Range Time Sodium 135 (L) 137 - 06/26/2022 [facility] DEPT PAT H AND 147 5:02 AM LAB MEDICINE MMOL/L CDT Potassium 4.2 3.5 - 06/26/2022 [facility] DEPT PAT H AND 5.1 5:02 AM LAB MEDICINE MMOL/L CDT Chloride 103 98 - 110 06/26/2022 [facility] DEPT PAT H AND MMOL/L 5:02 AM LAB MEDICINE CDT CO2 23 21 - 30 06/26/2022 [facility] DEPT PAT H AND MMOL/L 5:02 AM LAB MEDICINE CDT Anion Gap 9 3 - 12 06/26/2022 [facility] DEPT PAT H AND 5:02 AM LAB MEDICINE CDT Glucose 149 (H) 70 - 100 06/26/2022 [facility] DEPT PAT H AND MG/DL 5:02 AM LAB MEDICINE CDT Blood Urea Nitrogen 12 7 - 25 06/26/2022 [facility] DEPT PATH AND MG/DL 5:02 AM LAB MEDICINE CDT Creatinine 0.61 0.4 - 06/26/2022 [facility] DEPT PAT H AND 1.24 5:02 AM LAB MEDICINE MG/DL CDT Calcium 8.1 (L) 8.5 - 06/26/2022 [facility] DEPT PAT H AND 10.6 5:02 AM LAB MEDICINE MG/DL CDT eGFR >60 >60 06/26/2022 [facility] DEPT PAT H AND mL/min 5:02 AM LAB MEDICINE CDT Comment: eGFR calculated using the CKD-EPIcr_R equation Anatomical Location / Laterality Collection Method / Volume Derrell ection Time Received Time Specimen (Source) BLOOD / Unknown 06/26/2022 4:13 AM CDT 06/27/19 4:19 AM CDT Jason Riggs MD LABORATORY ORDERABLES City/State/ZIP Code Phone Number Performing [place] [address] [facility] DEPT PATH AND [address] [facility] LAB MEDICINE * (ABNORMAL) CBC (06/26/2022 4:13 AM CDT) Pathologist Signature Component Value Ref Test Method Analysis Performed A t Range Time White Blood Cells 8.5 4.5 - 06/26/2022 [facility] DE PT PATH AND 11.0 4:46 AM LAB MEDICINE K/UL CDT RBC 4.19 (L) 4.4 - 06/26/2022 [facility] DEPT PAT H AND 5.5 M/UL 4:46 AM LAB MEDICINE CDT Hemoglobin 12.8 (L) 13.5 - 06/26/2022 [facility] DEPT PAT H AND 16.5 4:46 AM LAB MEDICINE GM/DL CDT Hematocrit 37.8 (L) 40 - 50 06/26/2022 [facility] DEPT PAT H AND % 4:46 AM LAB MEDICINE CDT MCV 90.1 80 - 100 06/26/2022 [facility] DEPT PAT H AND FL 4:46 AM LAB MEDICINE CDT MCH 30.5 26 - 34 06/26/2022 [facility] DEPT PAT H AND PG 4:46 AM LAB MEDICINE CDT MCHC 33.8 32.0 - 06/26/2022 [facility] DEPT PAT H AND 36.0 4:46 AM LAB MEDICINE G/DL CDT RDW 13.1 11 - 15 06/26/2022 [facility] DEPT PAT H AND % 4:46 AM LAB MEDICINE CDT Platelet Count 178 150 - 06/26/2022 [facility] DEPT PATH AND 400 K/UL 4:46 AM LAB MEDICINE CDT MPV 7.6 7 - 11 06/26/2022 [facility] DEPT PAT H AND FL 4:46 AM LAB MEDICINE CDT Anatomical Location / Laterality Collection Method / Volume Derrell ection Time Received Time Specimen (Source) BLOOD / Unknown 06/26/2022 4:13 AM CDT 06/27/19 4:19 AM CDT Jason Riggs MD LABORATORY ORDERABLES City/State/ZIP Code Phone Number Performing Address [place] [address] [facility] DEPT PATH AND [address] [facility] LAB MEDICINE * TYPE & CROSSMATCH (06/25/2022 8:54 PM CDT) Pathologist Signature Component Value Ref Test Method Analysis Performed A t Range Time Units Ordered 2 06/25/2022 [facility] DEPT PATH AND 8:59 PM LAB MEDICINE CDT Crossmatch Expires 06/28/2022,2 06/25/2022 [facility] DEPT PATH AND 359 9:40 PM LAB MEDICINE CDT Record Check FOUND 06/25/2022 [facility] DEPT PATH AND 8:59 PM LAB MEDICINE CDT ABO/RH(D) O POS 06/25/2022 [facility] DEPT PATH AND 9:40 PM LAB MEDICINE CDT Antibody Screen NEG 06/25/2022 [facility] DEPT PAT H AND 9:40 PM LAB MEDICINE CDT Electronic YES 06/25/2022 [facility] DEPT PATH AND Crossmatch 9:40 PM LAB MEDICINE CDT Anatomical Location / Laterality Collection Method / Volume Derrell ection Time Received Time Specimen (Source) BLOOD / Unknown 06/25/2022 8:54 PM CDT 06/26/19 8:58 PM CDT Jason Riggs MD BLOOD BANK ORDERABLES City/State/ZIP Code Phone Number Performing [place] [address] [facility] DEPT PATH AND [address] [facility] LAB MEDICINE * (ABNORMAL) POC GLUCOSE (06/25/2022 8:36 PM CDT) Pathologist Signature Component Value Ref Test Method Analysis Performed A t Range Time Glucose, POC 162 (H) 70 - 100 06/25/2022 [facility] DEPT PA TH AND MG/DL 8:54 PM LAB MEDICINE POC CDT Anatomical Location / Laterality Collection Method / Volume Derrell ection Time Received Time Specimen (Source) 06/25/2022 8:36 PM CDT 06/26/19 8:54 PM CDT Jason Riggs MD OTHER LABORATORY City/State/ZIP Code Phone Number Performing [place] [address] [facility] AND [facility] LAB MEDICINE POC * (ABNORMAL) POC GLUCOSE (06/25/2022 6:15 PM CDT) Pathologist Signature Component Value Ref Test Method Analysis Performed A t Range Time Glucose, POC 162 (H) 70 - 100 06/25/2022 [facility] DEPT PA TH AND MG/DL 6:16 PM LAB MEDICINE POC CDT Anatomical Location / Laterality Collection Method / Volume Derrell ection Time Received Time Specimen (Source) 06/25/2022 6:15 PM CDT 06/26/19 6:16 PM CDT Jason Riggs MD OTHER LABORATORY City/State/ZIP Code Phone Number Performing [place] [address] [employer] [facility] AND [address] [facility] LAB MEDICINE POC * (ABNORMAL) POC GLUCOSE (06/25/2022 4:32 PM CDT) Pathologist Signature Component Value Ref Test Method Analysis Performed A t Range Time Glucose, POC 154 (H) 70 - 100 06/25/2022 [facility] DEPT PA TH AND MG/DL 4:33 PM LAB MEDICINE POC CDT Anatomical Location / Laterality Collection Method / Volume Derrell ection Time Received Time Specimen (Source) 06/25/2022 4:32 PM CDT 06/26/19 4:33 PM CDT Jason Riggs MD OTHER LABORATORY City/State/ZIP Code Phone Number Performing Address [place] [address] [employer] AND [facility] LAB MEDICINE POC * MRI C-SPINE WO CONTRAST (06/25/2022 3:17 [...] broad posterior C2-C3 disc bulgi ng with ipyi-gc-mvxellfh spinal stenosis. 9. Mild acute compression fractures [...] broad posterior C2-C3 disc bulgi ng with oikr-mv-hsbjccmp spinal stenosis. 9. Mild acute compression fractures T1 a nd T3 vertebral bodies. Finalized by Rupert Lynn M.D. on 06/25/2022 4:25 PM. Dictated by Rupert Lynn M.D. on 06/25/2022 4:08 PM. Ericka Medeiros MR ORDERABLES MASTER CONTROL OPERATOR[employer] * (ABNORMAL) POC GLUCOSE (06/25/2022 11:13 AM CDT) Pathologist Signature Component Value Ref Test Method Analysis Performed A t Range Time Glucose, POC 148 (H) 70 - 100 06/25/2022 [facility] DEPT PA TH AND MG/DL 11:14 AM LAB MEDICINE POC CDT Anatomical Location / Laterality Collection Method / Volume Derrell ection Time Received Time Specimen (Source) 06/25/2022 11:13 AM CDT 06/26/19 11:14 AM CDT Jason Riggs MD OTHER LABORATORY City/State/ZIP Code Phone Number Performing Address [place] [address] [facility] AND [address] [facility] LAB MEDICINE POC * (ABNORMAL) POC GLUCOSE (06/25/2022 6:29 AM CDT) Pathologist Signature Component Value Ref Test Method Analysis Performed A t Range Time Glucose, POC 148 (H) 70 - 100 06/25/2022 [facility] DEPT PA TH AND MG/DL 6:30 AM LAB MEDICINE POC CDT Anatomical Location / Laterality Collection Method / Volume Derrell ection Time Received Time Specimen (Source) 06/25/2022 6:29 AM CDT 06/26/19 6:30 AM CDT Jason Riggs MD OTHER LABORATORY City/State/ZIP Code Phone Number Performing Address [place] [address] [employer] DEPT PATH AND [address] [facility] LAB MEDICINE POC * (ABNORMAL) COMPREHENSIVE METABOLIC PANEL (06/25/2022 3:10 AM CDT) Pathologist Signature Component Value Ref Test [...] CDT Albumin 3.2 (L) 3.5 - 06/25/2022 [facility] DEPT PAT H AND 5.0 G/DL 3:55 AM LAB MEDICINE CDT Alk Phosphatase 61 25 - 110 06/25/2022 [facility] DEPT PATH AND U/L 3:55 AM LAB MEDICINE CDT AST (SGOT) 25 7 - 40 06/25/2022 [facility] DEPT PAT H AND U/L 3:55 AM LAB MEDICINE CDT CO2 20 (L) 21 - 30 06/25/2022 [facility] DEPT PAT H AND MMOL/L 3:55 AM LAB MEDICINE CDT ALT (SGPT) 11 7 - 56 06/25/2022 [facility] DE[facility] PAT H AND U/L 3:55 AM LAB MEDICINE CDT Anion Gap 9 3 - 12 06/25/2022 [facility] DEPT PAT H AND 3:55 AM LAB MEDICINE CDT eGFR >60 >60 06/25/2022 [facility] DEPT PAT H AND mL/min 3:55 AM LAB MEDICINE CDT Comment: eGFR calculated using the CKD-EPIcr_R equation Anatomical Location / Laterality Collection Method / Volume Derrell ection Time Received Time Specimen (Source) BLOOD / Unknown 06/25/2022 3:10 AM CDT 06/26/19 23 3:12 AM CDT Jason Riggs MD LABORATORY ORDERABLES City/State/ZIP Code Phone Number Performing Address [place] [address] [facility] DEPT PATH AND [address] [facility] LAB MEDICINE * PHOSPHORUS (06/25/2022 3:10 AM CDT) Pathologist Signature Component Value Ref Test Method Analysis Performed A t Range Time Phosphorus 3.3 2.0 - 06/25/2022 [facility] DEPT PAT H AND 4.5 3:55 AM LAB MEDICINE MG/DL CDT Anatomical Location / Laterality Collection Method / Volume Derrell ection Time Received Time Specimen (Source) BLOOD / Unknown 06/25/2022 3:10 AM CDT 06/26/19 3:12 AM CDT Jason Riggs MD LABORATORY ORDERABLES City/State/ZIP Code Phone Number Performing Address [place] [address] [facility] AND [address] [facility] LAB [facility] * MAGNESIUM (06/25/2022 3:10 AM CDT) Pathologist Signature Component Value Ref Test Method Analysis Performed A t Range Time Magnesium 1.7 1.6 - 06/25/2022 [facility] DEPT PAT H AND 2.6 3:55 AM LAB MEDICINE mg/dL CDT Anatomical Location / Laterality Collection Method / Volume Derrell ection Time Received Time Specimen (Source) BLOOD / Unknown 06/25/2022 3:10 AM CDT 06/26/19 3:12 AM CDT Jason Riggs MD LABORATORY ORDERABLES City/State/ZIP Code Phone Number Performing Address [place] [address] [employer] DEPT PATH AND [address] [facility] * (ABNORMAL) CBC (06/25/2022 3:10 AM CDT) Pathologist Signature Component Value Ref Test Method Analysis Performed A t Range Time White Blood Cells 8.9 4.5 - 06/25/2022 [facility] DE PT PATH AND 11.0 3:29 AM LAB MEDICINE K/UL CDT RBC 3.95 (L) 4.4 - 06/25/2022 [facility] DEPT PAT H AND 5.5 M/UL 3:29 AM LAB MEDICINE CDT Hemoglobin 12.2 (L) 13.5 - 06/25/2022 [facility] DEPT PAT H AND 16.5 3:29 AM LAB MEDICINE GM/DL CDT Hematocrit 35.3 (L) 40 - 50 06/25/2022 [facility] DEPT PAT H AND % 3:29 AM LAB MEDICINE CDT MCV 89.3 80 - 100 06/25/2022 [facility] DEPT PAT H AND FL 3:29 AM LAB MEDICINE CDT MCH 30.9 26 - 34 06/25/2022 [facility] DEPT PAT H AND PG 3:29 AM LAB MEDICINE CDT MCHC 34.6 32.0 - 06/25/2022 [facility] DEPT PAT H AND 36.0 3:29 AM LAB MEDICINE G/DL CDT RDW 13.2 11 - 15 06/25/2022 [facility] DEPT PAT H AND % 3:29 AM LAB MEDICINE CDT Platelet Count 184 150 - 06/25/2022 [facility] DEPT PATH AND 400 K/UL 3:29 AM LAB MEDICINE CDT MPV 7.7 7 - 11 06/25/2022 [facility] DEPT PAT H AND FL 3:29 AM LAB MEDICINE CDT Anatomical Location / Laterality Collection Method / Volume Derrell ection Time Received Time Specimen (Source) BLOOD / Unknown 06/25/2022 3:10 AM CDT 06/26/19 3:12 AM CDT Jason Riggs MD LABORATORY ORDERABLES City/State/ZIP Code Phone Number Performing [place] [address] [facility] AND [address] LAB MEDICINE * (ABNORMAL) POC GLUCOSE (06/24/2022 9:33 PM CDT) Pathologist Signature Component Value Ref Test Method Analysis Performed A t Range Time Glucose, POC 117 (H) 70 - 100 06/24/2022 [facility] DEPT PA TH AND MG/DL 9:34 PM LAB MEDICINE POC CDT Anatomical Location / Laterality Collection Method / Volume Derrell ection Time Received Time Specimen (Source) 06/24/2022 9:33 PM CDT 06/25/19 9:34 PM CDT Jason Riggs MD OTHER LABORATORY City/State/ZIP Code Phone Number Performing [place] [address] [facility] AND [address] LAB MEDICINE POC * PHOSPHORUS (06/24/2022 9:26 PM CDT) Pathologist Signature Component Value Ref Test Method Analysis Performed A t Range Time Phosphorus 3.4 2.0 - 06/24/2022 [facility] DEPT PAT H AND 4.5 11:23 PM LAB MEDICINE MG/DL CDT Anatomical Location / Laterality Collection Method / Volume Derrell ection Time Received Time Specimen (Source) BLOOD / Unknown 06/24/2022 9:26 PM CDT 06/25/19 10:50 PM CDT Jason Riggs MD LABORATORY ORDERABLES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 0145, Until 06/30/22 at 0746, Drip Parameters: Initial Rate: 0.01-0.05 mcg/kg/min Titrate to keep: MAP >= 80 Titrate by: 0.01-0.05 mcg/kg/min every 1 minute as needed to maintain desired clinical response. Std conc = 16 mcg/mL 0.03 mcg/kg/min 11.3 mL/hr Dose/Rate Change 06/29/2022 8:32 AM CDT 0.04 mcg/kg/min 15.1 mL/hr Dose/Rate Change 06/29/2022 6:57 AM CDT 0.02 mcg/kg/min 7.5 mL/hr Infusion Restarted 06/29/2022 6:47 AM CDT 0.02 mcg/kg/min 7.5 mL/hr Dose/Rate Change 06/29/2022 5:20 AM CDT 0.04 mcg/kg/min 15.1 mL/hr Dose/Rate Change 06/29/2022 4:35 AM CDT 0.05 mcg/kg/min 18.8 mL/hr Dose/Rate Change 06/29/2022 1:55 AM CDT 0.06 mcg/kg/min 22.6 mL/hr Dose/Rate Change 06/29/2022 1:48 AM CDT 0.04 mcg/kg/min 15.1 mL/hr Dose/Rate Change 06/29/2022 1:46 AM CDT 0.02 mcg/kg/min 7.5 mL/hr Given - New Bag 06/29/2022 1:38 AM CDT NOREPINEPHRINE BITARTRATE-NACL 4 MG/250 ML (16 MCG/ML) IV SOLN (Cabinet Override) NOW, 1 dose, On Sat06/28/22 at 0645, Created by cabinet override Std conc = 16 mcg/mL, Created by cabinet override ondansetron (ZOFRAN) injection 4 mg 4 mg, Intravenous, EVERY 6 HOURS PRN, Starting on 06/24/22 at 2141, Until 07/01/22 at 1120, Nausea/Vomiting Injectable 07/01/2022 8:42 AM CDT 10 mg oxybutynin XL (DITROPAN XL) tablet 10 mg Given 10 mg, Oral, DAILY, First dose on 06/30/22 at 1200, Until Discontinued, Do not crush or chew. Give with 5mg tablet for full 15mg dose. 10 mg Given 06/30/2022 11:10 AM CDT 06/29/2022 8:23 AM CDT 15 mg oxybutynin XL (DITROPAN XL) tablet 15 mg Given 15 mg, Oral, DAILY, First dose on Olya 06/28/22 at 1100, Until Discontinued, Do not crush or chew, Admission/Obs/Extended Recovery 15 mg Given 06/28/2022 12:03 PM CDT 07/01/2022 8:43 AM CDT 5 mg oxybutynin XL (DITROPAN XL) tablet 5 mg Given 5 mg, Oral, DAILY, First dose on 06/30/22 at 1200, Until Discontinued, Do not crush or chew. Give with 10mg table t for full 15mg dose. 5 mg Given 06/30/2022 11:11 AM CDT 06/25/2022 12:47 AM CDT 5 mg oxyCODONE (ROXICODONE) tablet 5-10 mg Given 5-10 mg, Oral, EVERY 6 HOURS PRN, Starting on 06/24/22 at 2141, Until Sat06/25/22 at 0049, Pain PO 5 mg Given 06/24/2022 10:05 PM CDT 06/27/2022 1:06 AM CDT 10 mg oxyCODONE (ROXICODONE) tablet 5-10 mg Given 5-10 mg, Oral, EVERY 4 HOURS PRN, Starting on 06/25/22 at 0100, Until Sat06/27/22 at 0523, Pain PO 10 mg Given 06/26/2022 9:09 PM CDT 10 mg Given 06/26/2022 9:20 AM CDT 10 mg Given 06/26/2022 4:06 AM CDT 10 mg Given 06/25/2022 10:38 PM CDT 10 mg Given 06/25/2022 6:39 PM CDT 10 mg Given 06/25/2022 1:42 PM CDT 10 mg Given 06/25/2022 9:06 AM CDT 10 mg Given 06/25/2022 4:30 AM CDT 06/30/2022 3:07 AM CDT 15 mg oxyCODONE (ROXICODONE) tablet 5-15 mg Given 5-15 mg, Oral, EVERY 4 HOURS PRN, Starting on 06/27/22 at 0523, Until 06/30/22 at 0746, Pain PO 15 mg Given 06/29/2022 8:49 PM CDT 15 mg Given 06/29/2022 3:53 PM CDT 15 mg Given 06/29/2022 11:44 AM CDT 15 mg Given 06/29/2022 5:17 AM CDT 15 mg Given 06/29/2022 1:09 AM CDT 15 mg Given 06/28/2022 9:10 PM CDT 15 mg Given 06/28/2022 4:37 PM CDT 10 mg Given 06/28/2022 11:05 AM CDT 5 mg Given 06/28/2022 4:21 AM CDT 10 mg Given 06/28/2022 2:28 AM CDT 10 mg Given 06/27/2022 8:35 PM CDT 10 mg Given 06/27/2022 5:24 AM CDT 07/01/2022 6:29 AM CDT 15 mg oxyCODONE (ROXICODONE) tablet 5-15 mg Given 5-15 mg, Oral, EVERY 3 HOURS PRN, Starting on 06/30/22 at 0745, Until 07/01/22 at 1120, Pain PO 15 mg Given 07/01/2022 1:39 AM CDT 15 mg Given 06/30/2022 10:02 PM CDT 15 mg Given 06/30/2022 6:12 PM CDT 15 mg Given 06/30/2022 2:40 PM CDT 15 mg Given 06/30/2022 11:11 AM CDT 15 mg Given 06/30/2022 8:00 AM CDT 06/30/2022 10:13 PM CDT 17 g polyethylene glycol 3350 (MIRALAX) Given packet 17 g 17 g (1 packet), Oral, TWICE DAILY, First dose on 06/30/22 at 1400, Unti l Discontinued, 8.5 GRAMS = 0.5 PACKET 17 GRAMS = 1 PACKET 34 GRAMS = 2 PACKETS 17 g Given 06/30/2022 2:40 PM CDT 06/28/2022 8:22 AM CDT 2 tablets potassium phosphate (K-PHOS ORIGINAL) Given dispersable tablet 2 tablet 2 tablet, Oral, ONCE, 1 dose, On Olya 06/28/22 at 0630, DO NOT SWALLOW TABLET DISSOLVE IN WATER PRIOR TO ADMINISTRATION - The tablets are administered by dissolving two tablets in 6-8 ounces of water. - For best results, soak tablets in water for two to five minutes, or more if necessary, and stir. - If any tablet particles remain undissolved, they may be crushed and stirred vigorously to speed dissolution. Each tablet delivers 114 m g Phosphorus (3.6 mMol) and 3.7 mEq Potassium. 06/30/2022 10:03 PM CDT 40 mg pravastatin (PRAVACHOL) tablet 40 mg Given 40 mg, Oral, AT BEDTIME DAILY, First dose on 06/25/22 at 0200, Until Discontinued, Admission/Obs/Extended Recovery 40 mg Given 06/29/2022 9:19 PM CDT 40 mg Given 06/28/2022 9:10 PM CDT 40 mg Given 06/27/2022 9:27 PM CDT 40 mg Given 06/26/2022 9:09 PM CDT 40 mg Given 06/25/2022 9:13 PM CDT 40 mg Given 06/25/2022 1:36 AM CDT 07/01/2022 8:26 AM CDT 1 tablet senna/docusate (SENOKOT-S) tablet 1 Given tablet 1 tablet, Oral, TWICE DAILY, First dose on 06/25/22 at 0900, Until Discontinued, Hold for loose stools 1 tablet Given 06/30/2022 10:02 PM CDT 1 tablet Given 06/30/2022 8:25 AM CDT 1 tablet Given 06/29/2022 9:19 PM CDT 1 tablet Given 06/29/2022 8:23 AM CDT 1 tablet Given 06/28/2022 9:10 PM CDT 1 tablet Given 06/28/2022 8:23 AM CDT 1 tablet Given 06/27/2022 9:28 PM CDT 1 tablet Given 06/27/2022 8:41 AM CDT 1 tablet Given 06/26/2022 9:09 PM CDT 1 tablet Given 06/25/2022 9:13 PM CDT 06/27/2022 9:02 AM CDT 1,000 mL 20 mL/hr SODIUM CHLORIDE 0.9 % IV SOLP (Cabinet Given - New Override) Bag NOW, 1 dose, On Sat06/27/22 at 0830, Created by cabinet override, Created by cabinet override 07/01/2022 8:26 AM CDT 0.4 mg tamsulosin (FLOMAX) capsule 0.4 mg Given 0.4 mg, Oral, DAILY AFTER BREAKFAST, First dose on Sat06/25/22 at 1415, Unti l Discontinued, NURSING: Please educate patient and document: Give 1/2 hour following same meal everyday. Do not crush, chew or open the capsule. 0.4 mg Given 06/30/2022 8:25 AM CDT 0.4 mg Given 06/29/2022 8:23 AM CDT 0.4 mg Given 06/28/2022 8:30 AM CDT 0.4 mg Given 06/27/2022 8:41 AM CDT 0.4 mg Given 06/26/2022 9:20 AM CDT 0.4 mg Given 06/25/2022 1:42 PM CDT 06/30/2022 5:48 AM CDT 4 mg tiZANidine (ZANAFLEX) tablet 4 mg Given 4 mg, Oral, EVERY 8 HOURS, First dose on Sat06/27/22 at 0845, Until Discontinued 4 mg Given 06/29/2022 9:19 PM CDT 4 mg Given 06/29/2022 1:28 PM CDT 4 mg Given 06/29/2022 5:16 AM CDT 4 mg Given 06/28/2022 9:14 PM CDT 4 mg Given 06/28/2022 1:38 PM CDT 4 mg Given 06/28/2022 5:14 AM CDT 4 mg Given 06/27/2022 9:28 PM CDT 4 mg Given 06/27/2022 1:22 PM CDT 4 mg Given 06/27/2022 8:40 AM CDT 06/27/2022 9:28 PM CDT 25 mg traZODone (DESYREL) tablet 25 mg Given 25 mg, Oral, AT BEDTIME PRN, Starting o n 06/26/22 at 2256, Until Olya 06/28/22 at 1136, Insomnia 25 mg Given 06/26/2022 11:58 PM CDT 06/30/2022 10:03 PM CDT 25 mg traZODone (DESYREL) tablet 25 mg Given 25 mg, Oral, AT BEDTIME DAILY, First dose (after last modification) on Olya 06/28/22 at 2100, Until Discontinued 25 mg Given 06/29/2022 9:46 PM CDT 25 mg Given 06/28/2022 9:10 PM CDT documented in this encounter Discontinued Medications Start Date End Date Medication Sig Discontinue Reason 06/30/2022 glyBURIDE (DIABETA) 5 mg Take 1 Tab PO tablet by mouth Daily With Breakfast. 06/30/2022 metformin (GLUCOPHAGE) Take 1 Tab 500 mg PO tablet by mouth Twice Daily With Meals. 12/23/2009 06/30/2022 oxycodone/acetaminophen Take 1-2 (PERCOCET) 5/325 mg PO Tabs by tablet mouth Every 4 Hours as needed for Pain. 12/23/2009 06/30/2022 senna/docusate Take 2 Tabs (SENOKOT-S) 8.6/50 mg PO by mouth tablet Daily. 12/23/2009 06/30/2022 levofloxacin (LEVAQUIN) Take 1 Tab 250 mg PO tablet by mouth Daily. documented as of this encounter Active and Recently Administered Medications Times are shown in CDT. 06/30/2022 07/01/2022 Medication Order 06/29/2022 0438 (Given - Provider: Danyel Rider RN)0439 (Canceled Entry - Provider: Danyel Rider RN)1042 (Given - Provider: Sade Gilmore RN)1613 (Given - Provider: Sade Gilmore RN)2202 (Given - Provider: David Patterson RN) 0448 (Given - Provider: David Patterson RN) acetaminophen (TYLENOL EXTRA STRENGTH) 0515 (Given - tablet 1,000 mg Provider: Suki 1,000 mg, Oral, EVERY 6 HOURS, First Early, RN)1016 dose (after last modification) on Mon (Given - Provi libby: 06/25/22 at 0415, Until Discontinued, Jessy Blackmor e, TOTAL ACETAMINOPHEN DOSE NOT TO EXCEED RN)1553 (Give n - 4GM DAILY Provider: Meena Degroot RN)2119 (Given - Provider: Danyel Rider RN) 1440 (Given - Provider: Randell Villa) 0825 (Given - Provider: Mannie Pacheco RN) aspirin EC tablet 81 mg 81 mg, Oral, DAILY, First dose on 06/30/22 at 1400, Until Discontinued 0825 (Given - Provider: Randell Villa) 0826 (Med Not Given - Provider: Mannie finn RN - Reason: Other (Comment)) bisacodyL (DULCOLAX) rectal suppository 1144 (Given - 10 mg Provider: Jessy 10 mg, Rectal, DAILY, First dose on Sat Rosa R N) 06/29/22 at 1215, Until Discontinued, Hold for loose stools 0548 (Given - Provider: Danyel Rider RN) gabapentin (NEURONTIN) capsule 400 mg 0517 (Given - (CANCELED) Provider: Suki 400 mg, Oral, EVERY 8 HOURS, First dose Early, RN)1 328 (after last modification) on Sat06/27/22 (Given - Pr ovider: at 0600, Until Discontinued, Capsules Jessy Blackmo re, may be opened and mixed with liquid director of dance)2130 (Give n - sprinkled on food Provider: Danyel Rider RN) 1440 (Given - Provider: Randell Villa)2203 (Given - Provider: David Patterson RN) 0448 (Given - Provider: David Patterson RN)0 600 (Canceled Entry - Provider: David Patterson RN) gabapentin (NEURONTIN) capsule 600 mg 600 mg, Oral, EVERY 8 HOURS, First dos e (after last modification) on Sat 3 at 1400, Until Discontinued, Capsules may be opened and mixed with liquid or sprinkled on food 0552 (Given - Provider: Danyel Rider RN)1440 (Given - Provider: Sade Gilmore RN)2203 (Given - Provider: David Patterson RN) 0625 (Given - Provider: David Patterson RN) heparin (porcine) PF syringe 5,000 Units 0522 (Given - 5,000 Units, Subcutaneous, EVERY 8 Provider: Suki MORRISSEY, First dose on Sat06/27/22 at Early, RN)1328 2100, Until Discontinued, NOTE: This is (Given - Pro vider: a HIGH ALERT Medication. Jessy Lee RN)2119 (Given - Provider: Danyel Rider RN) 0800 (Med Not Given - Provider: Sade Gilmore RN - Reason: Order parameters not met)1258 (Med Not Given - Provider: Sade Gilmore RN - Reason: Order parameters not met)1614 (Med Not Given - Provider: Sade Gilmore RN - Reason: Order parameters not met)2215 (Med Not Given - Provider: David Patterson RN - Reason: Order parameters not met) 0758 (Med Not Given - Provider: Mannie finn RN - Reason: Order parameters not met) insulin aspart (U-100) (NOVOLOG FLEXPEN 0700 (Med No t Given U-100 INSULIN) injection PEN 0-6 Units - Provider: Ina icole 0-6 Units, Subcutaneous, BEFORE MEALS Early, RN - Re ason: AND 2199, First dose on Sat06/24/22 at Order paramet ers not 2200, Until Discontinued, LOW DOSE -POC met)1206 (Gi jayy - glucose 181-220mg/dL at , , 17 Provider: Jessy administer 1 unit insulin, at 22, 03* MISTI Lee) 1758 administer 0 units. -POC glucose (Given - Provider: 221-260mg/dL at , , administer 2 Meena Degroot RN)2149 units insulin, at 22, 03* administer 1 (Med Not Give n - unit. -POC glucose 261-300mg/dL at 07, Provider: Bentley walsh administer 3 units insulin, at MISTI Rider - Re ason: 22, 03* administer 2 units. -POC glucose Order dione eters not 301-350mg/dL at , , administer 4 met) units insulin, at , * administer 3 units. -POC glucose 351-400mg/dL at , , administer 5 units insulin, at , * administer 4 units. -POC glucos e >400mg/dL at , , administer 6 units insulin, at , * administer 5 units. *only if ordered 5x's daily Fo r POCT glucose >350mg/dL give correction bolus and recheck POCT glucose in 2 hours. If POCT glucose at 2 hours >300mg/dL call physician for further orders. For patients who are not eatin g meals, continue to administer the appropriate correction factor. NOTE: This is a HIGH ALERT Medication., Dispense pens manually with initial order and then upon request. DO NOT uncheck "Do not dispense" 0825 (Given - Provider: Randell Villa)1258 (Med Not Given - Provider: Sade Gilmore RN - Reason: Other (Comment) - Comment: patient not eating lunch) 1801 (Med Not Given - Provider: Sade Gilmore RN - Reason: Other (Comment) - Comment: Patient not eating a meal) 0824 (Given - Provider: Mannie Pacheco RN) insulin aspart (U-100) (NOVOLOG FLEXPEN 0902 (Given - U-100 INSULIN) injection PEN 5 Units Provider: Tiff tobias 5 Units, Subcutaneous, THREE TIMES DAILY MISTI Lee)1330 WITH MEALS, First dose (after last (Med Not Given - modification) on Sat06/29/22 at 0845, Provider: Jun rausch Until Discontinued, Hold if NPO for MISTI Lee - procedure, unable to eat, or if FSBS < Reason: Order 70 mg/dL Give at start of meal. NOTE: parameters no t This is a HIGH ALERT Medication., met)1758 (Given - Dispense pens manually with initial Provider: Hope order and then upon request. DO SWATI Degroot RN) uncheck "Do not dispense" 2220 (Given - Provider: Tiki Nieves RN) insulin glargine (LANTUS SOLOSTAR U-100 2146 (Med No t Given INSULIN) injection PEN 12 Units - Provider: Danyel 12 Units, Subcutaneous, AT BEDTIME MISTI Rider - Reaso n: DAILY, First dose (after last Patient Refused) modification) on Sat06/29/22 at 2200, Until Discontinued, Continue if NPO. -- Do not mix with other insulins -- NOTE: This is a HIGH ALERT Medication., Dispense pens manually with initial order and then upon request. DO NOT uncheck "Do not dispense" lactated ringers infusion (COMPLETED) 0110 (Given - New 1,000 mL, 500 mL, Intravenous, at 3,000 Bag - Provid er: mL/hr, BOLUS, 1 dose, On Sat06/29/22 at Suki Solomon RN) 010 08 (Patch/Topical Applied - Provider: Sade Gilmore RN)222 (Patch/Topical Removed - Provider: Tiki Montana RN) 08 (Med Not Given - Provider: Mannie finn RN - Reason: Med not available) lidocaine (LIDODERM) 5 % topical patch 2 822 (Med N ot Given patch - Provider: Jessy 2 patch, Topical, Administer over 12 Rosa RN - Hours, DAILY, First dose on Sat06/25/22 Reason: Lory ent at 0900, Until Discontinued, NURSING Refused) PLEASE NOTE: Apply patch ONCE DAILY to back and REMOVE after designated duration. Apply only to intact skin. Patch may be cut to fit affected area. 2201 (Given - Provider: David Patterson RN) melatonin tablet 10 mg 2118 (Given - 10 mg, Oral, AT BEDTIME DAILY, First Provider: Emerson dawsonk dose (after last modification) on Olya MISTI Rider) 06/28/22 at 2100, Until Discontinued 08 (Given - Provider: Randell Villa)1440 (Given - Provider: Sade Gilmore RN)221 (Given - Provider: David Patterson RN) 08 (Given - Provider: Mannie Pacheco RN) methocarbamoL (ROBAXIN) tablet 500 mg 500 mg, Oral, THREE TIMES DAILY, First dose on Sat06/30/22 at 0900, Until Discontinued milk of magnesia (CONC) oral suspension 121 (Given - 10 mL (COMPLETED) Provider: Jessy 10 mL, Oral, ONCE, 1 dose, On Fri MISTI Lee) 06/29/22 at 1115, 10 mL CONC = 30 mL MOM 1110 (Given - Provider: Randell Villa) 0842 (Given - Provider: Mannie Pacheco RN) oxybutynin XL (DITROPAN XL) tablet 10 m g 10 mg, Oral, DAILY, First dose on 06/30/22 at 1200, Until Discontinued, Do not crush or chew. Give with 5mg tablet for full 15mg dose. 1057 (Canceled Entry - Provider: Sade Gilmore RN) oxybutynin XL (DITROPAN XL) tablet 15 mg 0823 (Given - (CANCELED) Provider: Jessy 15 mg, Oral, DAILY, First dose on Olya MISTI Lee) 06/28/22 at 1100, Until Discontinued, Do not crush or chew, Admission/Obs/Extended Recovery 1111 (Given - Provider: Randell Villa) 0843 (Given - Provider: Mannie Pacheco RN) oxybutynin XL (DITROPAN XL) tablet 5 mg 5 mg, Oral, DAILY, First dose on 06/30/22 at 1200, Until Discontinued, Do not crush or chew. Give with 10mg table t for full 15mg dose. 1440 (Given - Provider: Randell Villa)2213 (Given - Provider: David Patterson RN) 0827 (Med Not Given - Provider: Mannie finn RN - Reason: Other (Comment)) polyethylene glycol 3350 (MIRALAX) packet 17 g 17 g (1 packet), Oral, TWICE DAILY, First dose on 06/30/22 at 1400, Unti l Discontinued, 8.5 GRAMS = 0.5 PACKET 17 GRAMS = 1 PACKET 34 GRAMS = 2 PACKETS 2202 (Given - Provider: David Patterson RN) pravastatin (PRAVACHOL) tablet 40 mg 2118 (Given - 40 mg, Oral, AT BEDTIME DAILY, First Provider: Emerson ick dose on 06/25/22 at 0200, Until MISTI Rider) Discontinued, Admission/Obs/Extended Recovery 0825 (Given - Provider: Randell Villa)2201 (Given - Provider: David Patterson RN) 825 (Given - Provider: Mannie Pacheco, MISTI) senna/docusate (SENOKOT-S) tablet 1 822 (Given - tablet Provider: Jessy 1 tablet, Oral, TWICE DAILY, First dose Randell Lee)2118 on Sat06/25/22 at 0900, Until (Given - Provider: Discontinued, Hold for loose stools Danyel Rider RN) 824 (Given - Provider: Randell Villa) 825 (Given - Provider: Mannie Pacheco RN) tamsulosin (FLOMAX) capsule 0.4 mg 822 (Given - 0.4 mg, Oral, DAILY AFTER BREAKFAST, Provider: Tiff tobias First dose on Sat06/25/22 at 1415, Until MISTI Lee) Discontinued, NURSING: Please educate patient and document: Give 1/2 hour following same meal everyday. Do not crush, chew or open the capsule. 0548 (Given - Provider: Danyel Rider RN) tiZANidine (ZANAFLEX) tablet 4 mg 16 (Given - (CANCELED) Provider: Suki 4 mg, Oral, EVERY 8 HOURS, First dose Early, RN)132 8 on Sat06/27/22 at 0845, Until (Given - Provider: Discontinued Jessy Lee RN)2118 (Given - Provider: Danyel Rider RN) 2202 (Given - Provider: David Patterson, MISTI) traZODone (DESYREL) tablet 25 mg 2145 (Given - 25 mg, Oral, AT BEDTIME DAILY, First Provider: Emerson thomas dose (after last modification) on Olya MISTI Rider) 06/28/22 at 2100, Until Discontinued 06/30/2022 07/01/2022 Medication Order 06/29/2022 HYDROmorphone (DILAUDID) [employer] 10 mg/NS 0710 (Dose/R ate 50mL infusion syr (std conc)(premade) Verify - Provi libby: (CANCELED) Jessy Lee, Intravenous, [employer], Starting on Sat RN)1135 (Infusion 06/27/22 at 0845, Until Sat06/29/22 at Stopped - Prov ider: 1102, Stop [employer] if patient difficult to Jessy jj, arouse, or systolic BP drops more than RN)1136 (Wast ed - 20 mmHg from baseline. [employer] Conc= 0.2 Provider: Jesus Manuel Bergeron Administer only with [employer] Pump -- MISTI Lee - Only Patient may push [employer] button. Comment: 12.5ml)13 40 NOTE: This is a HIGH ALERT Medication. (Wasted - Pro vider: Jessy Lee RN - Comment: new syringe not used.) norepinephrine (LEVOPHED) 4 mg/250 mL NS 0138 (Given - New IV drip (std conc)(premade) (CANCELED) Bag - Provide r: 250 mL, 0-0.5 mcg/kg/min Suki Solomon, 100.4 kg Dosing weight (0-188.25 mL/hr, RN)0146 (Dos e/Rate rounded to 0-188.3 mL/hr), Intravenous, Change - Pro vider: TITRATE DIRECTED , Starting on Suki Early, Sat06/29/22 at 0145, Until 06/30/22 RN)0148 (Dose /Rate at 0746, Drip Parameters: Initial Rate: Change - Pro vider: 0.01-0.05 mcg/kg/min Titrate to keep: Suki Early, MAP >= 80 Titrate by: 0.01-0.05 RN)0155 (Dose/Rate mcg/kg/min every 1 minute as needed to Change - Prov ider: maintain desired clinical response. Std Suki Early , conc = 16 mcg/mL RN)0435 (Dose/Rate Change - Provider: Suki Solomon RN)0520 (Dose/Rate Change - Provider: Suki Solomon RN)0549 (Infusion Paused - Provider: Suki Solomon RN)0647 (Infusion Restarted - Provider: Suki Solomon RN)0657 (Dose/Rate Change - Provider: Suki Solomon RN)0832 (Dose/Rate Change - Provider: Jessy Lee RN)0943 (Dose/Rate Change - Provider: Jessy Lee, RN)1141 (Infusion Paused - Provider: Jessy Lee RN) 06/30/2022 07/01/2022 Medication Order 06/29/2022 dextrose 50% (D50) syringe 25-50 mL 25-50 mL (12.5-25 g), Intravenous, NEEDED, Starting on Olya 06/28/22 at 0956 , Until 07/01/22 at 1120, Blood Sugar..., =< 70 mg/dL: See admin instructions, = Blood Sugar Patient Management Result Status Strategy = Blood Glucose Conscious, Oral carbohydrates 50-70 mg/dL able to take PO - Conscious, 25mL (12.5g) dextrose 50% unable to take PO slow IV push - Unconscious 50mL (25g) dextrose 50% slow IV push = Blood Glucose Conscious, Oral carbohydrates <50 mg/dL able to take PO - Conscious, 50mL (25g) dextrose 50% unable to take PO slow IV push - Unconscious 50mL (25g) dextrose 50% slow IV push = NOTE: This is a HIGH ALERT Medication. hyoscyamine (ANASPAZ) rapid dissolve tablet 0.125 mg 0.125 mg, Sublingual, EVERY 4 HOURS PRN, Starting on 06/25/22 at 0047, Until 07/01/22 at 1120, Bladder Spasms, Admission/Obs/Extended Recovery ondansetron (ZOFRAN) injection 4 mg 4 mg, Intravenous, EVERY 6 HOURS PRN, Starting on 06/24/22 at 2141, Until 07/01/22 at 1120, Nausea/Vomiting Injectable 0307 (Given - Provider: Danyel Rider RN) oxyCODONE (ROXICODONE) tablet 5-15 mg 0059 (Canceled Entry (CANCELED) - Provider: Suki 5-15 mg, Oral, EVERY 4 HOURS PRN, MISTI Solomon)0109 Starting on 06/27/22 at 0523, Until (Given - Prov ider: 06/30/22 at 0746, Pain PO Suki Solomon RN)0517 (Given - Provider: Suki Solomon RN)1144 (Given - Provider: Jessy Lee RN)1553 (Given - Provider: Meena Degroot RN)2049 (Given - Provider: Tiki Montana RN) 0800 (Given - Provider: Randell Villa N)1111 (Given - Provider: Sade Gilmore RN)1440 (Given - Provider: Sade Gilmore RN)1812 (Given - Provider: Sade Gilmore RN)2202 (Given - Provider: David Patterson RN) 0139 (Given - Provider: David Patterson RN)0 218 (Canceled Entry - Provider: David Patterson RN)0629 (Given - Provider: David Patterson RN) oxyCODONE (ROXICODONE) tablet 5-15 mg 5-15 mg, Oral, EVERY 3 HOURS PRN, Starting on 06/30/22 at 0745, Until 07/01/22 at 1120, Pain PO documented in this encounter Orders First Ordered Date Medications Ordered That Might Not Have Count Last Ordered Date Been Administered HYDROmorphone injection (DILAUDID) 0.5-1 1 06/29/2022 mg LACTATED RINGERS IV SOLP (Cabinet 1 06/13 Override) 06/24/2022 dextrose 50% (D50) syringe 25-50 mL 2 insulin aspart (U-100) (NOVOLOG FLEXPEN 1 06/28/2022 U-100 INSULIN) injection PEN 4 Units 06/26/2022 norepinephrine (LEVOPHED) 4 mg/250 mL NS 2 06/28/2022 IV drip (std conc)(premade) enoxaparin (LOVENOX) syringe 30 mg 1 HYDROmorphone injection (DILAUDID) 1 mg 1 06/27/2022 methocarbamoL (ROBAXIN) tablet 1,000 mg 1 06/27/2022 nalOXone (NARCAN) injection 0.08 mg 1 BUPivacaine HCl (MARCAINE) 0.25 % 1 06/13 injection ceFAZolin (ANCEF) 1 g in sodium chloride 1 06/26/2022 irrigation 0.9 % 1,000 mL bottle lidocaine 1%/EPINEPHrine 1:100,000 1 injection gabapentin (NEURONTIN) capsule 200 mg 1 06/25/2022 hyoscyamine (ANASPAZ) rapid dissolve 1 0 06/25/2022 tablet 0.125 mg ondansetron (ZOFRAN) injection 4 mg 1 First Ordered Date Lab Orders Without Results Count Last Ordere d Date PREPARE RBC'S 1 06/25/2022 First Ordered Date Procedures Count Last Ordered Date CONSULT VASCULAR ACCESS TEAM 1 3 First Ordered Date Diet Count Last Ordered Date DISCHARGE DIET DIABETIC 1 06/30/2022 DISCHARGE DIET FLUID RESTRICTION 1 06/30 First Ordered Date Nursing Count Last Ordered Date DISCHARGE ACTIVITY OTHER 1 06/30/2022 DISCHARGE COMMENTS 1 06/30/2022 DISCHARGE CONTACT 1 06/30/2022 DISCHARGE EDUCATION 1 06/30/2022 DISCHARGE RETURN APPOINTMENT 3 3 DISCHARGE SIGNS/SYMPTOMS 1 06/30/2022 DISCHARGE WOUND CARE 1 06/30/2022 First Ordered Date Consult Count Last Ordered Date CONSULT REHABILITATION MEDICINE 1 2022 PHYSICIAN CONSULT INTERNAL MEDICINE PHYSICIAN 1 [facility] CONSULT SPINE PHYSICIAN 1 06/24/2022 First Ordered Date OT Count Last Ordered Date OT CONSULT OCCUPATIONAL THERAPY 1 2022 First Ordered Date PT Count Last Ordered Date PT CONSULT PHYSICAL THERAPY 1 06/24/2022 First Ordered Date Admission Count Last Ordered Date ADMIT TO INPATIENT (NO BED REQUEST) 1 First Ordered Date Transfer Count Last Ordered Date TRANSFER PATIENT (BED REQUEST) 1 023 First Ordered Date Discharge Count Last Ordered Date DISCHARGE PATIENT NOW 1 07/01/2022 First Ordered Date Equipment Count Last Ordered Date [employer] WITH ETCO2 MODULE 1 06/27/2022 First Ordered Date Vital Signs Count Last Ordered Date VITAL SIGNS 1 06/24/2022 First Ordered Date Activity Count Last Ordered Date MOBILITY 1 06/26/2022 First Ordered Date Discharge Contingent Count Last Ordered Date DISCHARGE PATIENT CONTINGENT 1 3 First Ordered Date Orthotics/Prosthetics Count Last Ordered Inocente e ORTHOTIC/PROSTHETIC DEVICE 1 06/27/2022 First Ordered Date SPECIALITY EQUIPMENT Count Last Ordered Date COMMODE STANDARD 300LBS MAX 1 06/29/2022 First Ordered Date Appointment Request Count Last Ordered Date APPOINTMENT REQUEST: NEUROSURGERY 1 06/13 First Ordered Date Intake & Output Count Last Ordered Date INTAKE AND OUTPUT 1 06/24/[address] & Maintain Count Last Ordered Date PLACE AND MAINTAIN SCD 1 06/24/2022 First Ordered Date Case Request Count Last Ordered Date CASE REQUEST 1 06/25/2022 First Ordered Date ADT Patient Update Count Last Ordered Date CHANGE SERVICE / LEVEL OF CARE (NO BED 1 06/29/2022 REQUEST) documented in this encounter Additional Health Concerns Noted Time Assessment 07/01/2022 7:52 AM CDT A fall risk assessment has been complet ed for the patient documented as of this encounter Care Teams Start Date End Date Legal Adviser Relationship Specialty 06/24/22 No Pcp, Na PCP - General 02/13/10 Kelly Laird MD Forwarding Address Unknown Left 09/12/2018 02/05/12 Marco Franklin III, Urology PA-C [address] [facility] [address] [place] [address] documented as of this encounter
--- OUTSIDE RECORDS SUMMARY | 2022-07-01 11:56 | XMS REPORT | Encounter Summary ---
Author Author [facility] Organization [facility] Address Unknown Phone Unavailable Care Team Providers Care Mold Loft Worker Name Role Phone Kelly Laird MD Unavailable Unavailable Noemi LAWRENCE PA-C, Marco Mejias Unavailable [phone] No Pcp, Na PCP Unavailable Reason for Referral * Radiology Services (Routine) - Authorized Diagnoses / Procedures Referred By Contact Referred To [facility] Specialty Diagnoses Thoracic spinal stenosis Procedures T SPINE AP & LAT 2 VIEWS Jonathan Salas MD [address] [place] [address] Radiology Referral ID Status Reason Start Date Expiration Visits Vi sits Date Requested Authorized [id number] Authorized 06/26/2022 06/26/2023 1 1 * Radiology Services (Routine) - Authorized Diagnoses / Procedures Referred By Contact Referred To [facility] Specialty Diagnoses Other closed nondisplaced fracture of sixth cervical vertebra with routine healing, subsequent encounter Other closed nondisplaced fracture of seventh cervical vertebra with routine hea ling, subsequent encounter Cervical stenosis of spinal canal Procedures C SPINE 3 VIEWS OR LESS Jonathan Salas MD [address] [place] [address] Radiology Referral ID Status Reason Start Date Expiration Visits Vi sits Date Requested Authorized [id number] Authorized 06/26/2022 06/26/2023 1 1 Encounter Details Care Team Description Date Type Department Jonathan Salas MD [address] [place] [address] Other closed nondisplaced fracture of si xth cervical vertebra with routine healing, subsequent encounter (Primary Dx); Other closed nondisplaced fracture of seventh cervical vertebra with routine healing, subsequent encounter; Cervical stenosis of spinal canal; Thoracic spinal stenosis 06/26/2022 Orders Only Neurosurgery: [facility] [address] [place] [address] Social History Date Tobacco Use Types Packs/Day Years Used Smoking Tobacco: Never Smokeless Tobacco: Chew Current Comments: 2 cans/day x 45 years Comments Alcohol Use Standard Drinks/Week Yes 66 (1 standard drink = 0.6 oz pure alcohol) Sex Assigned at Date Recorded Not on file documented as of this encounter Functional Status Date of Assessment Functional Status Response 06/24/2022 Does the patient have a hearing impairment: Yes documented as of this encounter Plan of Treatment Order Schedule Name Type Priority Associated Diag noses Expected: 06/27/2023 (Approximate), Expi res: 06/27/2023 C SPINE 3 VIEWS OR LESS Imaging Routine Other closed nondisplaced fracture of sixth cervical vertebra with routine healing, subsequent encounter Other closed nondisplaced fracture of seventh cervical vertebra with routine healing, subsequent encounter Cervical stenosis of spinal canal Expected: 06/27/2023 (Approximate), Expi res: 06/27/2023 T SPINE AP & LAT 2 VIEWS Imaging Routine Thora cic spinal stenosis documented as of this encounter Goals Goal Patient Associated Recent Progress Patient-Stat Aut hor Goal Type Problems ed? Resume normal activities Hospital On track (06/24/2022 No Suresh, 11:46 PM CDT) MISTI Nuno Decrease pain Hospital On track (06/24/2022 No Mayra watt, 11:46 PM CDT) MISTI Nuno documented as of this encounter Visit Diagnoses Diagnosis Other closed nondisplaced fracture of s ixth cervical vertebra with routine healing, subsequent encounter - Primary Other closed nondisplaced fracture of s eventh cervical vertebra with routine healing, subsequent encounter Cervical stenosis of spinal canal Spinal stenosis in cervical region Thoracic spinal stenosis Spinal stenosis of thoracic region documented in this encounter Additional Health Concerns Noted Time Assessment 06/26/2022 8:00 PM CDT A fall risk assessment has been complet ed for the patient documented as of this encounter Care Teams Start Date End Date Mold Loft Worker Relationship Specialty 06/24/22 No Pcp, Na PCP - General 02/13/10 Kelly Laird MD Forwarding Address Unknown Left [facility] 09/12/2018 02/05/12 Marco Franklin III, Urology PADavinaC [address] [facility] [address] [place] [address] documented as of this encounter
--- OUTSIDE RECORDS SUMMARY | 2022-07-01 11:57 | XMS REPORT | Encounter Summary ---
Author Author [facility] Organization [facility] Address Unknown Phone Unavailable Care Team Providers Care Model Maker Apprentice Name Role Phone Kelly Laird MD Unavailable Unavailable Noemi LAWRENCE PA-C, Marco Mejias Unavailable [phone] No Pcp, Na PCP Unavailable Encounter Details Care Team Description Date Type Department Arrived 06/24/2022 Hospital Imaging: [facility] [place] [address] [place] [address] Social History Date Tobacco Use Types Packs/Day Years Used Smoking Tobacco: Never Smokeless Tobacco: Chew Current Comments: 2 cans/day x 45 years Comments Alcohol Use Standard Drinks/Week Yes 66 (1 standard drink = 0.6 oz pure alcohol) Sex Assigned at Date Recorded Not on file documented as of this encounter Medications at Time of Discharge [...] tablet tablet by mouth at bedtime daily. 06/30/2022 glyBURIDE (DIABETA) 5 mg Take 1 Tab by 0 PO tablet mouth Daily With Breakfast. 12/23/2009 06/30/2022 levofloxacin (LEVAQUIN) Take 1 Tab by 14 Tab 0 250 mg PO tablet mouth Daily. 06/30/2022 metformin (GLUCOPHAGE) Take 1 Tab by 0 500 mg PO tablet mouth Twice Daily With Meals. 12/23/2009 06/30/2022 oxycodone/acetaminophen Take 1-2 Tabs 40 Tab 0 (PERCOCET) 5/325 mg PO by mouth tablet Every 4 Hours as needed for Pain. 12/23/2009 06/30/2022 senna/docusate Take 2 Tabs 60 Tab 3 (SENOKOT-S) 8.6/50 mg PO by mouth tablet Daily. documented as of this encounter Discharge Disposition Code Departure Means Destination Disposition Home Home or Self Care documented in this encounter Plan of Treatment Not on filedocumented as of this encounter Goals Goal Patient Associated Recent Progress Patient-Stat Aut hor Goal Type Problems ed? Resume normal activities Hospital On track (06/24/2022 No Suresh, 11:46 PM CDT) MISTI Nuno Decrease pain Hospital On track (06/24/2022 No Mayra watt, 11:46 PM CDT) MISTI Nuno documented as of this encounter Procedures Comments Procedure Name Priority Date/Time Associated Diag nosis CT T-SPINE EXTERNAL Routine 06/24/2022 Diagnosis unknown IMAGING 12:00 AM SEASONAL CLERK documented in this encounter Results * CT T-SPINE EXTERNAL IMAGING (06/24/2022 12:00 AM SEASONAL CLERK) Anatomical Location / Laterality Collection Method / Volume Derrell ection Time Received Time Specimen (Source) Narrative Scheduling, Silent - 06/25/2022 6:59 AM CDT This order has been auto finalized and does not contain a result. Radiologist RADIOLOGY EXTERNAL ORDERABL ES Outpatient documented in this encounter Visit Diagnoses Not on filedocumented in this encounter Additional Health Concerns Noted Time Assessment 06/24/2022 9:33 PM CDT A fall risk assessment has been complet ed for the patient documented as of this encounter Care Teams Start Date End Date Model Maker Apprentice Relationship Specialty 06/24/22 No Pcp, Na PCP - General 02/13/10 Kelly Laird MD Forwarding Address Unknown Left [facility] 09/12/2018 02/05/12 Marco Franklin III, [facility]rology [facility]inaC [address] [facility] [address] [place] [address] documented as of this encounter
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
--- OUTSIDE RECORDS SUMMARY | 2022-07-01 11:57 | XMS REPORT | Encounter Summary ---
Author Author [facility] Organization [facility] Address Unknown Phone Unavailable Care Team Providers Care Track Maintainer Name Role Phone Kelly Laird MD Unavailable Unavailable Noemi LAWRENCE PA-C, Marco Mejias Unavailable [phone] No Pcp, Na PCP Unavailable Encounter Details Care Team Description Date Type Department Arrived 06/24/2022 Hospital Imaging: [facility] [place] [address] [place] [address] Social History Date Tobacco Use [...] Name Priority Date/Time Associated Diag nosis CT HEAD EXTERNAL IMAGING Routine 06/24/2022 Diagn osis unknown 12:10 AM CUTTER INSPECTOR documented in this encounter Results * CT HEAD EXTERNAL IMAGING (06/24/2022 12:10 AM CUTTER INSPECTOR) Anatomical Location / Laterality Collection Method / [...] encounter Care Teams Start Date End Date Track Maintainer Relationship Specialty 06/24/22 No Pcp, Na PCP - General 02/13/10 Kelly Laird MD Forwarding Address Unknown Left [facility] 09/12/2018 02/05/12 Marco Franklin III, [facility]C [address] [facility] [address] [place] [address] documented as of this encounter
--- OUTSIDE RECORDS SUMMARY | 2022-07-01 11:57 | XMS REPORT | Encounter Summary ---
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 Riggs MD OTHER LABORATORY City/State/ZIP Code Phone Number Performing Address Organization [address] [facility] LAB MEDICINE POC * (ABNORMAL) POC [...] City/State/ZIP Code Phone Number Performing Address Organization [address] PATH AND [address] [facility] LAB MEDICINE POC * (ABNORMAL) POC GLUCOSE (06/27/2022 11:33 AM CDT) Pathologist Signature Component Value Ref Test Method Analysis Performed A t Range Time Glucose, POC 183 (H) 70 - 100 06/27/2022 [facility] DEPT PA TH AND MG/DL 11:34 AM LAB MEDICINE POC CDT Anatomical Location / Laterality Collection Method / Volume Derrell ection Time Received Time Specimen (Source) 06/27/2022 11:33 AM CDT 06/28/19 11:34 AM CDT Jason Riggs MD OTHER LABORATORY City/State/ZIP Code Phone Number Performing [place] [address] [facility] AND [address] [facility] LAB MEDICINE POC * (ABNORMAL) POC [...] City/State/ZIP Code Phone Number Performing [place] [address] [employer] DEPT PATH AND [address] LAB MEDICINE POC * PHOSPHORUS (06/27/2022 2:48 [...] City/State/ZIP Code Phone Number Performing [place] [address] [employer] [facility] AND [address] [facility] LAB MEDICINE * MAGNESIUM (06/27/2022 2:48 AM [...] AM CDT Jason Riggs MD LABORATORY ORDERABLES [facility]/ZIP Code Phone Number Performing [place] [address] [employer] [facility] PATH AND [address] [facility] LAB MEDICINE * (ABNORMAL) BASIC METABOLIC PANEL (06/27/2022 2:48 AM CDT) Pathologist Signature Component Value Ref Test Method Analysis Performed A t Range Time Sodium 133 (L) 137 - 06/27/2022 [facility] DEPT PAT H AND 147 3:29 AM LAB MEDICINE MMOL/L CDT Potassium 4.8 3.5 - 06/27/2022 [facility] DEPT PAT H AND 5.1 3:29 AM [...] Glucose 201 (H) 70 - 100 06/27/2022 [facility] DEPT PAT H AND MG/DL 3:29 AM LAB MEDICINE CDT Blood Urea Nitrogen 13 7 - 25 06/27/2022 [facility] DEPT PATH AND MG/DL 3:29 AM LAB MEDICINE CDT Creatinine 0.61 0.4 - 06/27/2022 [facility] DEPT PAT H AND 1.24 3:29 AM LAB MEDICINE MG/DL CDT Calcium 8.0 (L) 8.5 - 06/27/2022 [facility] DEPT PAT H AND 10.6 3:29 AM LAB MEDICINE MG/DL CDT eGFR >60 >60 06/27/2022 [facility] DEPT PAT H AND mL/min 3:29 AM LAB MEDICINE CDT Comment: eGFR calculated using the CKD-EPIcr_R equation Anatomical Location / Laterality Collection Method / Volume Derrell ection Time Received Time Specimen (Source) BLOOD / Unknown 06/27/2022 2:48 AM CDT 06/28/19 23 2:53 AM CDT Jason Riggs MD LABORATORY ORDERABLES City/State/ZIP Code Phone Number Performing [place] [address] [facility] DEPT PATH AND [address] [facility] LAB MEDICINE * (ABNORMAL) CBC (06/27/2022 2:48 AM CDT) Pathologist Signature Component Value Ref Test Method Analysis Performed A t Range Time White Blood Cells 8.2 4.5 - 06/27/2022 [facility] DE PT PATH AND 11.0 3:04 AM LAB MEDICINE K/UL CDT RBC 3.42 (L) 4.4 - 06/27/2022 [facility] DEPT PAT H AND 5.5 M/UL 3:04 AM LAB MEDICINE CDT Hemoglobin 10.7 (L) 13.5 - 06/27/2022 [facility] DEPT PAT H AND 16.5 3:04 AM LAB MEDICINE GM/DL CDT Hematocrit 30.3 (L) 40 - 50 06/27/2022 [facility] DEPT PAT H AND % 3:04 AM LAB MEDICINE CDT MCV 88.6 80 - 100 06/27/2022 [facility] DEPT PAT H AND FL 3:04 AM LAB MEDICINE CDT MCH 31.4 26 - 34 06/27/2022 [facility] DEPT PAT H AND PG 3:04 AM LAB MEDICINE CDT MCHC 35.4 32.0 - 06/27/2022 [facility] DEPT PAT H AND 36.0 3:04 AM LAB MEDICINE G/DL CDT RDW 13.0 11 - 15 06/27/2022 [facility] DEPT PAT H AND % 3:04 AM LAB MEDICINE CDT Platelet Count 188 150 - 06/27/2022 [facility] DEPT PATH AND 400 K/UL 3:04 AM LAB MEDICINE CDT MPV 7.6 7 - 11 06/27/2022 [facility] DEPT PAT H AND FL 3:04 AM LAB MEDICINE CDT Anatomical Location / Laterality Collection Method / Volume Derrell ection Time Received Time Specimen (Source) BLOOD / Unknown 06/27/2022 2:48 AM CDT 06/28/19 23 2:53 AM CDT Jason Riggs MD LABORATORY ORDERABLES City/State/ZIP Code Phone Number Performing [place] [address] [facility] [address] [facility] LAB MEDICINE * CT SPINE CERVICAL WO [...] POC 212 (H) 70 - 100 06/26/2022 [facility] DEPT PA TH AND MG/DL 8:31 PM LAB MEDICINE POC CDT Anatomical Location / Laterality Collection Method / Volume Derrell ection Time Received Time Specimen (Source) 06/26/2022 8:30 PM CDT 06/27/19 8:31 PM CDT Jason Riggs MD OTHER LABORATORY City/State/ZIP Code Phone Number Performing [place] [address] [facility] DEPT PATH AND [address] [facility]. LAB MEDICINE POC * (ABNORMAL) BASIC METABOLIC [...] 06/27/19 7:27 PM CDT Jason Riggs MD 1RingABLES [facility]/ZIP Code Phone Number Performing [place] [address] [employer] DEPT PATH AND [address] LAB MEDICINE * IONIZED CALCIUM (06/26/2022 7:22 [...] 23 7:28 PM CDT Jason Riggs MD [employer] [facility]/State/ZIP Code Phone Number Performing [place] [address] [employer] DEPT PATH AND [address] LAB MEDICINE * PHOSPHORUS (06/26/2022 7:22 [...] City/State/ZIP Code Phone Number Performing [place] [address] [employer] DEPT PATH AND [address] LAB MEDICINE * MAGNESIUM (06/26/2022 7:22 PM [...] City/State/ZIP Code Phone Number Performing [place] [address] [employer] DEPT PATH AND [address] LAB MEDICINE * (ABNORMAL) CBC (06/26/2022 7:22 PM CDT) Pathologist Signature Component Value Ref Test Method Analysis Performed A t Range Time White Blood Cells 10.1 4.5 - 06/26/2022 [facility] DE PT PATH AND 11.0 7:38 PM [...] CDT Platelet Count 178 150 - 06/26/2022 [facility] DEPT PATH AND 400 K/UL 7:38 PM LAB MEDICINE CDT MPV 7.4 7 - 11 06/26/2022 [facility] DEPT PAT H AND FL 7:38 PM LAB MEDICINE CDT Anatomical Location / Laterality Collection Method / Volume Derrell ection Time Received Time Specimen (Source) BLOOD / Unknown 06/26/2022 7:22 PM CDT 06/27/19 7:27 PM CDT Jason Riggs MD LABORATORY ORDERABLES City/State/ZIP Code Phone Number Performing [place] [address] [facility] DEPT PATH AND [address] [facility]. LAB MEDICINE * FLUORO MOBILE IN [place] (06/26/2022 5:18 PM CDT) Anatomical Location / Laterality Collection Method / Volume Derrell ection Time Received Time Specimen (Source) Narrative ELINOR CAREY - 06/26/2022 5:19 PM CDT This order has been auto finalized and does not contain a result. Jonathan Salas FLUOROSCOPY ORDERABLES [facility]/State/ZIP Code Phone Number Performing Address Organization [facility] * O ARM FLUOROSCOPY (06/26/2022 5:17 [...] Time Lactic Acid,BG 1.0 0.5 - 06/26/2022 [employer] DEPT PATH AND 2.0 3:41 PM LAB MEDICINE MMOL/L CDT Anatomical Location / Laterality Collection Method / Volume Derrell ection Time Received Time Specimen (Source) BLOOD / Unknown 06/26/2022 3:26 PM CDT 06/27/19 3:30 PM CDT Perfecto Kamara MD OTHER LABORATORY City/State/ZIP Code Phone Number Performing [place] [address] [employer] DEPT PATH AND [address] LAB MEDICINE * POTASSIUM, BG (06/26/2022 3:26 PM CDT) Pathologist Signature Component Value Ref Test Method Analysis Performed A t Range Time Potassium 4.7 3.5 - 06/26/2022 [employer] DEPT PAT H AND 5.1 3:41 PM LAB MEDICINE MMOL/L CDT Anatomical Location / Laterality Collection Method / Volume Derrell ection Time Received Time Specimen (Source) BLOOD / Unknown 06/26/2022 3:26 PM CDT 06/27/19 3:30 PM CDT Perfecto Kamara MD OTHER LABORATORY City/State/ZIP Code Phone Number Performing [place] [address] [employer] DEPT PATH AND [address] LAB MEDICINE * (ABNORMAL) SODIUM,BG (06/26/2022 3:26 [...] City/State/ZIP Code Phone Number Performing [place] [address] [facility] AND [address] [facility] LAB MEDICINE * IONIZED CALCIUM,BG (06/26/2022 3:26 [...] City/State/ZIP Code Phone Number Performing [place] [address] [facility] PATH AND [employer] [facility] LAB [facility] * (ABNORMAL) GLUCOSE,BG (06/26/2022 3:26 PM CDT) Pathologist Signature Component Value Ref Test Method Analysis Performed A t Range Time Glucose 192 (H) 70 - 100 06/26/2022 [facility] DEPT PAT H AND MG/DL 3:41 PM LAB MEDICINE CDT Anatomical Location / Laterality Collection Method / Volume Derrell ection Time Received Time Specimen (Source) BLOOD / Unknown 06/26/2022 3:26 PM CDT 06/27/19 3:30 PM CDT Perfecto Kamara MD OTHER LABORATORY City/State/ZIP Code Phone Number Performing [place] [address] [facility] PATH AND [address] [facility] LAB MEDICINE * (ABNORMAL) BLOOD GASES, ARTERIAL (06/26/2022 3:26 PM CDT) Pathologist Signature Component Value Ref Test Method Analysis Performed A t Range Time pH-Arterial 7.37 7.35 - 06/26/2022 [facility] DEPT PAT H AND 7.45 3:41 PM LAB MEDICINE CDT pCO2-Arterial 39 35 - 45 06/26/2022 [facility] DEPT P ATH AND MMHG 3:41 PM LAB MEDICINE CDT pO2-Arterial 151 (H) 80 - 100 06/26/2022 [facility] DEPT PA TH AND MMHG 3:41 PM LAB MEDICINE CDT Base 2.3 MMOL/L 06/26/2022 [facility] DEPT PAT H AND Deficit-Arterial 3:41 PM LAB MEDICINE CDT O2 Sat-Arterial 97.3 95 - 99 06/26/2022 [facility] DEPT PATH AND % 3:41 PM LAB MEDICINE CDT Xsxpbvftgtj-ZFH-Dbw 22.5 21 - 28 06/26/2022 [facility] DEPT PATH AND MMOL/L 3:41 PM LAB MEDICINE CDT Anatomical Location / Laterality Collection Method / Volume Derrell ection Time Received Time Specimen (Source) BLOOD / Unknown 06/26/2022 3:26 PM CDT 06/27/19 3:30 PM CDT Blood, arterial Perfecto Kamara MD OTHER LABORATORY City/State/ZIP Code Phone Number Performing [place] [address] [facility] AND [address] LAB MEDICINE * (ABNORMAL) HEMOGLOBIN & HEMATOCRIT, BG (06/26/2022 3:26 PM CDT) Pathologist Signature Component Value Ref Test Method Analysis Performed A t Range Time Hemoglobin BG 13.0 (L) 13.5 - 06/26/2022 [facility] DEPT P ATH AND 16.5 3:41 PM LAB MEDICINE GM/DL CDT Hematocrit BG 39.9 (L) 40 - 50 06/26/2022 [facility] DEPT P ATH AND % 3:41 PM LAB MEDICINE CDT Anatomical Location / Laterality Collection Method / Volume Derrell ection Time Received Time Specimen (Source) BLOOD / Unknown 06/26/2022 3:26 PM CDT 06/27/19 3:30 PM CDT Perfecto Kamara MD OTHER LABORATORY City/State/ZIP Code Phone Number Performing [place] [address] [employer] DEPT PATH AND [address] LAB MEDICINE * (ABNORMAL) POC GLUCOSE (06/26/2022 6:33 AM CDT) Pathologist Signature Component Value Ref Test Method Analysis Performed A t Range Time Glucose, POC 128 (H) 70 - 100 06/26/2022 [facility] DEPT PA TH AND MG/DL 6:34 AM LAB MEDICINE POC CDT Anatomical Location / Laterality Collection Method / Volume Derrell ection Time Received Time Specimen (Source) 06/26/2022 6:33 AM CDT 06/27/19 6:34 AM CDT Jason Riggs MD OTHER LABORATORY City/State/ZIP Code Phone Number Performing [place] [address] [employer] DEPT PATH AND [address] LAB MEDICINE POC * PHOSPHORUS (06/26/2022 4:13 AM CDT) Pathologist Signature Component Value Ref Test Method Analysis Performed A t Range Time Phosphorus 3.4 2.0 - 06/26/2022 [facility] DEPT PAT H AND 4.5 5:02 AM LAB MEDICINE MG/DL CDT Anatomical Location / Laterality Collection Method / Volume Derrell ection Time Received Time Specimen (Source) BLOOD / Unknown 06/26/2022 4:13 AM CDT 06/27/19 4:19 AM CDT Jason Riggs MD LABORATORY ORDERABLES City/State/ZIP Code Phone Number Performing [place] [address] [employer] DEPT PATH AND [address] . LAB MEDICINE * MAGNESIUM (06/26/2022 4:13 AM [...] AM CDT Jason Riggs MD LABORATORY ORDERABLES [facility]/State/ZIP Code Phone Number Performing [place] [address] [employer] [facility] PATH AND [address] [facility] LAB MEDICINE * (ABNORMAL) BASIC METABOLIC PANEL (06/26/2022 4:13 AM CDT) Pathologist Signature Component Value Ref Test Method Analysis Performed A t Range Time Sodium 135 (L) 137 - 06/26/2022 [facility] DEPT PAT H AND 147 5:02 AM LAB MEDICINE MMOL/L CDT Potassium 4.2 3.5 - 06/26/2022 [facility] DEPT PAT H AND 5.1 5:02 AM LAB MEDICINE MMOL/L CDT Chloride 103 98 - 110 06/26/2022 [facility] DEPT PAT H AND MMOL/L 5:02 AM LAB MEDICINE CDT CO2 23 21 - 30 06/26/2022 [facility] DEPT PAT H AND MMOL/L 5:02 AM LAB MEDICINE CDT Anion Gap 9 3 - 12 06/26/2022 [facility] DEPT PAT H AND 5:02 AM LAB MEDICINE CDT Glucose 149 (H) 70 - 100 06/26/2022 [facility] DEPT PAT H AND MG/DL 5:02 AM LAB MEDICINE CDT Blood Urea Nitrogen 12 7 - 25 06/26/2022 [facility] DEPT PATH AND MG/DL 5:02 AM LAB MEDICINE CDT Creatinine 0.61 0.4 - 06/26/2022 [facility] DEPT PAT H AND 1.24 5:02 AM LAB MEDICINE MG/DL CDT Calcium 8.1 (L) 8.5 - 06/26/2022 [facility] DEPT PAT H AND 10.6 5:02 AM LAB MEDICINE MG/DL CDT eGFR >60 >60 06/26/2022 [facility] DEPT PAT H AND mL/min 5:02 AM LAB MEDICINE CDT Comment: eGFR calculated using the CKD-EPIcr_R equation Anatomical Location / Laterality Collection Method / Volume Derrell ection Time Received Time Specimen (Source) BLOOD / Unknown 06/26/2022 4:13 AM CDT 06/27/19 4:19 AM CDT Jason Riggs MD LABORATORY ORDERABLES City/State/ZIP Code Phone Number Performing [place] [address] [facility] DEPT PATH AND [address] [facility] LAB MEDICINE * (ABNORMAL) CBC (06/26/2022 4:13 AM CDT) Pathologist Signature Component Value Ref Test Method Analysis Performed A t Range Time White Blood Cells 8.5 4.5 - 06/26/2022 [facility] DE PT PATH AND 11.0 4:46 AM LAB MEDICINE K/UL CDT RBC 4.19 (L) 4.4 - 06/26/2022 [facility] DEPT PAT H AND 5.5 M/UL 4:46 [...] CDT MPV 7.6 7 - 11 06/26/2022 [facility] DEPT PAT H AND FL 4:46 AM LAB MEDICINE CDT Anatomical Location / Laterality Collection Method / Volume Derrell ection Time Received Time Specimen (Source) BLOOD / Unknown 06/26/2022 4:13 AM CDT 06/27/19 4:19 AM CDT Jason Riggs MD LABORATORY ORDERABLES City/State/ZIP Code Phone Number Performing [place] [address] [facility] DEPT PATH AND [address] [facility] LAB MEDICINE * TYPE & CROSSMATCH (06/25/2022 [...] LAB MEDICINE CDT Antibody Screen NEG 06/25/2022 [facility] DEPT PAT H AND 9:40 PM LAB MEDICINE CDT Electronic YES 06/25/2022 [facility] DEPT PATH AND Crossmatch 9:40 PM LAB MEDICINE CDT Anatomical Location / Laterality Collection Method / Volume Derrell ection Time Received Time Specimen (Source) BLOOD / Unknown 06/25/2022 8:54 PM CDT 06/26/19 8:58 PM CDT Jason Riggs MD BLOOD BANK ORDERABLES City/State/ZIP Code Phone Number Performing [place] [address] [facility] DEPT PATH AND [address] LAB MEDICINE * (ABNORMAL) POC GLUCOSE (06/25/2022 8:36 PM CDT) Pathologist Signature Component Value Ref Test Method Analysis Performed A t Range Time Glucose, POC 162 (H) 70 - 100 06/25/2022 [facility] DEPT PA TH AND MG/DL 8:54 PM LAB MEDICINE POC CDT Anatomical Location / Laterality Collection Method / Volume Derrell ection Time Received Time Specimen (Source) 06/25/2022 8:36 PM CDT 06/26/19 8:54 PM CDT Jason Riggs MD OTHER LABORATORY City/State/ZIP Code Phone Number Performing [place] [address] [facility] PATH AND [address] [facility] LAB MEDICINE POC * (ABNORMAL) POC GLUCOSE (06/25/2022 6:15 PM CDT) Pathologist Signature Component Value Ref Test Method Analysis Performed A t Range Time Glucose, POC 162 (H) 70 - 100 06/25/2022 [facility] DEPT PA TH AND MG/DL 6:16 PM LAB MEDICINE POC CDT Anatomical Location / Laterality Collection Method / Volume Derrell ection Time Received Time Specimen (Source) 06/25/2022 6:15 PM CDT 06/26/19 6:16 PM CDT Jason Riggs MD OTHER LABORATORY City/State/ZIP Code Phone Number Performing [place] [address] [facility] PATH AND [address] [facility] LAB MEDICINE POC * (ABNORMAL) POC GLUCOSE (06/25/2022 4:32 PM CDT) Pathologist Signature Component Value Ref Test Method Analysis Performed A t Range Time Glucose, POC 154 (H) 70 - 100 06/25/2022 [facility] DEPT PA TH AND MG/DL 4:33 PM LAB MEDICINE POC CDT Anatomical Location / Laterality Collection Method / Volume Derrell ection Time Received Time Specimen (Source) 06/25/2022 4:32 PM CDT 06/26/19 4:33 PM CDT Jason Riggs MD OTHER LABORATORY City/State/ZIP Code Phone Number Performing [place] [address] [facility] DEPT PATH AND [address] [facility] LAB MEDICINE POC * MRI C-SPINE [...] broad posterior C2-C3 disc bulgi ng with [id number] spinal stenosis. 9. Mild acute compression fractures [...] broad posterior C2-C3 disc bulgi ng with [id number] spinal stenosis. 9. Mild acute compression fractures T1 a nd T3 vertebral bodies. Finalized by Rupert Lynn M.D. on 06/25/2022 4:25 PM. Dictated by Rupert Lynn M.D. on 06/25/2022 4:08 PM. Ericka Medeiros MR ORDERABLES [employer] * (ABNORMAL) POC GLUCOSE (06/25/2022 11:13 AM CDT) Pathologist Signature Component Value Ref Test Method Analysis Performed A t Range Time Glucose, POC 148 (H) 70 - 100 06/25/2022 [employer] DEPT PA TH AND MG/DL 11:14 AM LAB MEDICINE POC CDT Anatomical Location / Laterality Collection Method / Volume Derrell ection Time Received Time Specimen (Source) 06/25/2022 11:13 AM CDT 06/26/19 11:14 AM CDT Jason Riggs MD OTHER LABORATORY City/State/ZIP Code Phone Number Performing [place] [address] [facility] DEPT PATH AND [address] [facility] LAB MEDICINE POC * (ABNORMAL) POC GLUCOSE (06/25/2022 6:29 AM CDT) Pathologist Signature Component Value Ref Test Method Analysis Performed A t Range Time Glucose, POC 148 (H) 70 - 100 06/25/2022 [employer] DEPT PA TH AND MG/DL 6:30 AM LAB MEDICINE POC CDT Anatomical Location / Laterality Collection Method / Volume Derrell ection Time Received Time Specimen (Source) 06/25/2022 6:29 AM CDT 06/26/19 6:30 AM CDT Jason Riggs MD OTHER LABORATORY City/State/ZIP Code Phone Number Performing [place] [address] [facility] DEPT PATH AND [address] [facility]. LAB MEDICINE POC * (ABNORMAL) COMPREHENSIVE METABOLIC [...] CDT Chloride 107 98 - 110 06/25/2022 [facility] DEPT PAT H AND MMOL/L 3:55 AM LAB MEDICINE CDT Glucose 129 (H) 70 - 100 06/25/2022 [facility] DEPT PAT H AND MG/DL 3:55 AM LAB MEDICINE CDT Blood Urea Nitrogen 16 7 - 25 06/25/2022 [facility] DEPT PATH AND MG/DL 3:55 AM LAB MEDICINE CDT Creatinine 0.53 0.4 - 06/25/2022 [facility] DEPT PAT H AND 1.24 3:55 AM LAB MEDICINE MG/DL CDT Calcium 7.5 (L) 8.5 - 06/25/2022 [facility] DEPT PAT H AND 10.6 3:55 AM LAB MEDICINE MG/DL CDT Total Protein 5.5 (L) 6.0 - 06/25/2022 [facility] DEPT P ATH AND 8.0 G/DL 3:55 [...] CO2 20 (L) 21 - 30 06/25/2022 [facility] DEPT PAT H AND MMOL/L 3:55 AM LAB MEDICINE CDT ALT (SGPT) 11 7 - 56 06/25/2022 [facility] DEPT PAT H AND U/L 3:55 AM LAB MEDICINE CDT Anion Gap 9 3 - 12 06/25/2022 [facility] DEPT PAT H AND 3:55 AM LAB MEDICINE CDT eGFR >60 >60 06/25/2022 [facility] DEPT PAT H AND mL/min 3:55 AM LAB MEDICINE CDT Comment: eGFR calculated using the CKD-EPIcr_R equation Anatomical Location / Laterality Collection Method / Volume Derrell ection Time Received Time Specimen (Source) BLOOD / Unknown 06/25/2022 3:10 AM CDT 06/26/19 3:12 AM CDT Jason Riggs MD LABORATORY ORDERABLES [facility]/ZIP Code Phone Number Performing [place] [address] [employer] DEPT PATH AND [address] LAB MEDICINE * PHOSPHORUS (06/25/2022 3:10 AM [...] 23 3:12 AM CDT Jason Riggs MD 1RingABLES [facility]/State/ZIP Code Phone Number Performing [place] [address] [employer] DEPT PATH AND [address] LAB MEDICINE * MAGNESIUM (06/25/2022 3:10 AM CDT) Pathologist [...] City/State/ZIP Code Phone Number Performing [place] [address] [facility] DEPT PATH AND [address] [facility] LAB MEDICINE * (ABNORMAL) CBC (06/25/2022 3:10 AM CDT) Pathologist Signature Component Value Ref Test Method Analysis Performed A t Range Time White Blood Cells 8.9 4.5 - 06/25/2022 [facility] DE PT PATH AND 11.0 3:29 AM LAB MEDICINE K/UL CDT RBC 3.95 (L) 4.4 - 06/25/2022 [facility] DEPT PAT H AND 5.5 M/UL 3:29 AM LAB MEDICINE CDT Hemoglobin 12.2 (L) 13.5 - 06/25/2022 [facility] DEPT PAT H AND 16.5 3:29 AM LAB MEDICINE GM/DL CDT Hematocrit 35.3 (L) 40 - 50 06/25/2022 [facility] DEPT PAT H AND % 3:29 AM LAB MEDICINE CDT MCV 89.3 80 - 100 06/25/2022 [facility] DEPT PAT H AND FL 3:29 AM LAB MEDICINE CDT MCH 30.9 26 - 34 06/25/2022 [facility] DEPT PAT H AND PG 3:29 AM LAB MEDICINE CDT MCHC 34.6 32.0 - 06/25/2022 [facility] DEPT PAT H AND 36.0 3:29 AM LAB MEDICINE G/DL CDT RDW 13.2 11 - 15 06/25/2022 [facility] DEPT PAT H AND % 3:29 AM LAB MEDICINE CDT Platelet Count 184 150 - 06/25/2022 [facility] DEPT PATH AND 400 K/UL 3:29 AM LAB MEDICINE CDT MPV 7.7 7 - 11 06/25/2022 [facility] DEPT PAT H AND FL 3:29 AM LAB MEDICINE CDT Anatomical Location / Laterality Collection Method / Volume Derrell ection Time Received Time Specimen (Source) BLOOD / Unknown 06/25/2022 3:10 AM CDT 06/26/19 23 3:12 AM CDT Jason Riggs MD LABORATORY ORDERABLES City/State/ZIP Code Phone Number Performing [place] [address] [employer] DEPT PATH AND [address] [facility] LAB MEDICINE * (ABNORMAL) POC GLUCOSE (06/24/2022 9:33 PM CDT) Pathologist Signature Component Value Ref Test Method Analysis Performed A t Range Time Glucose, POC 117 (H) 70 - 100 06/24/2022 [facility] DEPT PA TH AND MG/DL 9:34 PM LAB MEDICINE POC CDT Anatomical Location / Laterality Collection Method / Volume Derrell ection Time Received Time Specimen (Source) 06/24/2022 9:33 PM CDT 06/25/19 9:34 PM CDT Jason Riggs MD OTHER LABORATORY City/State/ZIP Code Phone Number Performing [place] [address] [employer] DEPT PATH AND [address] [facility] LAB MEDICINE POC * PHOSPHORUS (06/24/2022 9:26 PM CDT) Pathologist Signature Component Value Ref Test Method Analysis Performed A t Range Time Phosphorus 3.4 2.0 - 06/24/2022 [facility] DEPT PAT H AND 4.5 11:23 PM LAB MEDICINE MG/DL CDT Anatomical Location / Laterality Collection Method / Volume Derrell ection Time Received Time Specimen (Source) BLOOD / Unknown 06/24/2022 9:26 PM CDT 06/25/19 10:50 PM CDT Jason Riggs MD LABORATORY ORDERABLES [facility]/State/ZIP Code Phone Number Performing [place] [address] [employer] DEPT PATH AND [employer] [facility] LAB MEDICINE * MAGNESIUM (06/24/2022 9:26 PM [...] PM CDT Jason Riggs MD LABORATORY ORDERABLES [facility]/State/ZIP Code Phone Number Performing [place] [address] [employer] DEPT PATH AND [address] [facility] LAB MEDICINE * (ABNORMAL) CBC (06/24/2022 9:26 PM CDT) Pathologist Signature Component Value Ref Test Method Analysis Performed A t Range Time White Blood Cells 11.4 (H) 4.5 - 06/24/2022 [facility] DE PT PATH AND 11.0 10:59 PM LAB MEDICINE K/UL CDT RBC 4.79 4.4 - 06/24/2022 [facility] DEPT PAT H AND 5.5 M/UL 10:59 PM LAB MEDICINE CDT Hemoglobin 14.5 13.5 - 06/24/2022 [facility] DEPT PAT H AND 16.5 10:59 PM LAB MEDICINE GM/DL CDT Hematocrit 42.8 40 - 50 06/24/2022 [facility] DEPT PAT H AND % 10:59 PM LAB MEDICINE CDT MCV 89.3 80 - 100 06/24/2022 [facility] DEPT PAT H AND FL 10:59 PM LAB MEDICINE CDT MCH 30.3 26 - 34 06/24/2022 [facility] DEPT PAT H AND PG 10:59 PM LAB MEDICINE CDT MCHC 33.9 32.0 - 06/24/2022 [facility] DEPT PAT H AND 36.0 10:59 PM LAB MEDICINE G/DL CDT RDW 13.3 11 - 15 06/24/2022 [facility] DEPT PAT H AND % 10:59 PM LAB MEDICINE CDT Platelet Count 213 150 - 06/24/2022 [facility] DEPT PATH AND 400 K/UL 10:59 PM LAB MEDICINE CDT MPV 7.7 7 - 11 06/24/2022 [facility] AND FL 10:59 PM LAB MEDICINE CDT Anatomical Location / Laterality Collection Method / Volume Derrell ection Time Received Time Specimen (Source) BLOOD / Unknown 06/24/2022 9:26 PM CDT 06/25/19 10:50 PM CDT Jason Riggs MD LABORATORY ORDERABLES City/State/ZIP Code Phone Number Performing [place] [address] [facility] DEPT PATH AND [address] [facility] LAB MEDICINE * (ABNORMAL) COMPREHENSIVE METABOLIC PANEL (06/24/2022 9:26 PM CDT) Pathologist Signature Component Value Ref Test Method Analysis Performed A t Range Time Sodium 136 (L) 137 - 06/24/2022 [facility] DEPT PAT H AND 147 11:23 PM LAB MEDICINE MMOL/L CDT Potassium 4.1 3.5 - 06/24/2022 [facility] DEPT PAT H AND 5.1 11:23 PM LAB MEDICINE MMOL/L CDT Chloride 101 98 - 110 06/24/2022 [facility] DEPT PAT H AND MMOL/L 11:23 PM LAB MEDICINE CDT Glucose 130 (H) 70 - 100 06/24/2022 [facility] DEPT PAT H AND MG/DL 11:23 PM LAB MEDICINE CDT Blood Urea Nitrogen 19 7 - 25 06/24/2022 [facility] DEPT PATH AND MG/DL 11:23 PM LAB MEDICINE CDT Creatinine 0.70 0.4 - 06/24/2022 [facility] DEPT PAT H AND 1.24 11:23 PM LAB MEDICINE MG/DL CDT Calcium 9.1 8.5 - 06/24/2022 [facility] DEPT PAT H AND 10.6 11:23 PM LAB MEDICINE MG/DL CDT Total Protein 7.0 6.0 - 06/24/2022 [facility] DEPT P ATH AND 8.0 G/DL 11:23 PM LAB MEDICINE CDT Total Bilirubin 0.8 0.3 - 06/24/2022 [facility] DEPT PATH AND 1.2 11:23 PM LAB MEDICINE MG/DL CDT Albumin 3.9 3.5 - 06/24/2022 [facility] DEPT PAT H AND 5.0 G/DL 11:23 PM LAB MEDICINE CDT Alk Phosphatase 81 25 - 110 06/24/2022 [facility] DEPT PATH AND U/L 11:23 PM LAB MEDICINE CDT AST (SGOT) 28 7 - 40 06/24/2022 [facility] DEPT PAT H AND U/L 11:23 PM LAB MEDICINE CDT CO2 24 21 - 30 06/24/2022 [facility] DEPT PAT H AND MMOL/L 11:23 PM LAB MEDICINE CDT ALT (SGPT) 15 7 - 56 06/24/2022 [facility] DEPT PAT H AND U/L 11:23 PM LAB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
--- OUTSIDE RECORDS SUMMARY | 2022-07-01 11:57 | XMS REPORT | Encounter Summary ---
Author Author [facility] Organization [facility] Address Unknown Phone Unavailable Care Team Providers Care Heater Helper Forge Name Role Phone Kelly Laird MD Unavailable Unavailable Noemi LAWRENCE PA-C, Marco Mejias Unavailable [phone] No Pcp, Na PCP Unavailable Encounter Details Care Team Description Date Type Department Arrived 06/24/2022 Hospital Imaging: [facility] [place] [address], [address] [place] [address] Social History Date Tobacco Use [...] Name Priority Date/Time Associated Diag nosis CT CHEST/ABD/PEL EXTERNAL Routine 06/24/2022 Diag nosis unknown IMAGING 12:05 AM PRODUCT TEST ENGINEER documented in this encounter Results * CT CHEST/ABD/PEL EXTERNAL IMAGING (06/24/2022 12:05 AM PRODUCT TEST ENGINEER) Anatomical Location / Laterality Collection Method / [...] encounter Care Teams Start Date End Date Heater Helper Forge Relationship Specialty 06/24/22 No Pcp, Na PCP - General 02/13/10 Kelly Laird MD Forwarding Address Unknown Left [facility] 09/12/2018 02/05/12 Marco Franklin III, Urology PA-C [address] [facility] [address] [place] [address] documented as of this encounter
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
--- OUTSIDE RECORDS SUMMARY | 2022-07-01 11:57 | XMS REPORT | Encounter Summary ---
Author Author [facility] Organization [facility] Address Unknown Phone Unavailable Care Team Providers Care Account Installer Name Role Phone Kelly Laird MD Unavailable Unavailable Noemi LAWRENCE PA-C, Marco Mejias Unavailable [phone] No Pcp, Na PCP Unavailable Encounter Details Care Team Description Date Type Department Jonathan Salas MD [address] [place] [address] 06/25/2022 Prep for Case XDD NEUROSURGERY Social History Date Tobacco Use Types Packs/Day [...] as of this encounter Plan of Treatment Not on filedocumented as of this encounter Goals Goal Patient Associated Recent Progress Patient-Stat Aut hor Goal Type Problems ed? Resume normal activities Hospital On track (06/24/2022 No Suresh, 11:46 PM CDT) MISTI Nuno Decrease pain Hospital On track (06/24/2022 No Mayra watt, 11:46 PM CDT) MISTI Nuno documented as of this encounter Visit Diagnoses Not on filedocumented in this encounter Additional Health Concerns Noted Time Assessment 06/25/2022 8:00 PM CDT A fall risk assessment has been complet ed for the patient documented as of this encounter Care Teams Start Date End Date Account Installer Relationship Specialty 06/24/22 No Pcp, Na PCP - General 11/1/10 Kelly Laird MD Forwarding Address Unknown Left [facility] 09/12/2018 02/05/12 Marco Franklin III, Urology PAChris [address] [facility] [address] [place] [address] documented as of this encounter
[2022-07-01] MEDS ORDERED: GABA300C PO (13:06)
[2022-07-01] MEDS ORDERED: ASPI-999 PO (13:06)
[2022-07-01] MEDS ORDERED: HYOS0.1283 SL (13:06)
[2022-07-01] MEDS ORDERED: HEPA500055 SQ (13:06)
[2022-07-01] MEDS ORDERED: INSU100I10 SQ (13:06)
[2022-07-01] MEDS ORDERED: METH-731 PO (13:06)
[2022-07-01] MEDS ORDERED: TMSL.4C PO (13:06)
[2022-07-01] MEDS ORDERED: LIDO700A45 TP (13:06)
[2022-07-01] MEDS ORDERED: PRAV40TA2 PO (13:06)
[2022-07-01] MEDS ORDERED: TRZ50T PO (13:06)
[2022-07-01] MEDS ORDERED: OXYB10TA6 PO (13:06)
[2022-07-01] MEDS ORDERED: OXYC1TAB11 PO (13:06)
[2022-07-01] MEDS ORDERED: INSU100I14 SQ (13:06)
[2022-07-01] MEDS ORDERED: ACET-2267 PO (13:13)
[2022-07-01] MEDS ORDERED: BISA10SU58 RC (13:13)
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
[2022-07-01] MEDS ORDERED: LIDOCAINE 4% (SALONPAS) PATCH TP PRN (15:45)
[2022-07-01] MEDS ORDERED: oxyCODONE/APAP 5/325MG (PERCOCET 5) TABLET PO PRN ×2 (15:45→16:30)
[2022-07-01] MEDS ORDERED: WATER (STERILE) FOR INJ 10 ML BTL INJ SCH (16:00)
[2022-07-01] MEDS ORDERED: ZIPRASIDONE 20 MG INJ (GEODON) VIAL IM PRN (16:00)
[2022-07-01] MEDS ORDERED: LORazepam 1 MG (ATIVAN) TAB PO PRN (16:00)
[2022-07-01] MEDS: polyethylene glycoL POWDER 17 GM (MIRALAX) PACK PO SCH ×3 (16:09→19:35)
[2022-07-01] MEDS: DOCUSATE SODIUM 100 MG (COLACE) CAP PO SCH ×3 (16:09→19:35)
[2022-07-01] MEDS: SENNA W/DOCUSATE (SENOKOT S) TABLET PO SCH ×3 (16:09→19:35)
[2022-07-01] MEDS: inSUlin ASPART (NovoLOG) 1 UNIT/0.01 ML (CHARGE PER UNIT) SC SCH ×4 (16:10→20:58)
[2022-07-01] MEDS: HYOSCYAMINE 0.125 MG (LEVSIN) TAB SL SCH ×2 (17:58→19:35)
[2022-07-01] MEDS: ACETAMINOPHEN 500 MG TAB (TYLENOL) PO SCH ×2 (17:58→19:42)
[2022-07-01] MEDS: GABAPENTIN 300 MG (NEURONTIN) CAP PO SCH ×2 (17:58→19:43)
[2022-07-01] MEDS ORDERED: WATER (STERILE) FOR INJECTION 20 ML ONE (18:29)
[2022-07-01] MEDS: LORazepam INJ 2 MG/ML (ATIVAN) VIAL IM PRN ×2 (18:41→22:50)
[2022-07-01] MEDS: METHOCARBAMOL 500 MG (ROBAXIN) TABLET PO SCH (19:35)
[2022-07-01] MEDS: AtorvaSTATin TABLET 10 MG TABLET PO SCH (19:37)
[2022-07-01] MEDS: OXYBUTYNIN (DITROPAN) 5 MG TAB PO SCH (20:50)
[2022-07-02] MEDS: HYOSCYAMINE 0.125 MG (LEVSIN) TAB SL SCH ×7 (00:07→23:46)
[2022-07-02] MEDS: LORazepam INJ 2 MG/ML (ATIVAN) VIAL IM PRN (02:44)
[2022-07-02] MEDS: ACETAMINOPHEN 500 MG TAB (TYLENOL) PO SCH ×4 (02:57→19:36)
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
[2022-07-02] MEDS: THIAMINE 100 MG (VITAMIN B-1) TAB PO SCH (05:00)
[2022-07-02] MEDS: inSUlin ASPART (NovoLOG) 1 UNIT/0.01 ML (CHARGE PER UNIT) SC SCH ×7 (05:00→19:54)
[2022-07-02] MEDS: MULTIVIT W/MINERALS TAB (THERAGRAN M) PO SCH (05:00)
[2022-07-02 06:21] LABS: BASOPHILS % (AUTO) 0 % (0-10); EOSINOPHILS % (AUTO) 0 % (0-10); HEMATOCRIT 32 % (40-54); HEMOGLOBIN 11.3 g/dL (13.3-17.7); LYMPHOCYTES # (AUTO) 1.6 10^3/uL (1.0-4.0); LYMPHOCYTES % (AUTO) 14 % (12-44); MEAN CORPUSCULAR HEMOGLOBIN 31 pg (25-34); MEAN CORPUSCULAR HGB CONC 35 g/dL (32-36); MEAN CORPUSCULAR VOLUME 89 fL (80-99); MEAN PLATELET VOLUME 9.3 fL (9.0-12.2); MONOCYTES # (AUTO) 1.1 10^3/uL (0.0-1.0); MONOCYTES % (AUTO) 10 % (0-12); NEUTROPHILS # (AUTO) 8.7 10^3/uL (1.8-7.8); NEUTROPHILS % (AUTO) 75 % (42-75); PLATELET COUNT 315 10^3/uL (130-400); WHITE BLOOD COUNT 11.6 10^3/uL (4.3-11.0)
[2022-07-02 06:51] LABS: ALBUMIN 3.2 GM/DL (3.2-4.5); BILIRUBIN,TOTAL 0.5 MG/DL (0.1-1.0); CALCIUM 9.5 MG/DL (8.5-10.1); CREATININE SERUM 0.68 MG/DL (0.60-1.30); POTASSIUM 4.4 MMOL/L (3.6-5.0); TOTAL PROTEIN 7.2 GM/DL (6.4-8.2)
[2022-07-02 07:58] VITALS: BP 138/85
--- NOTE | 2022-07-02 08:32 | Speech Therapy Progress Note ---
Therapy Progress Note Following a chart review, the physician has requested "PT OT if he allows." Cognitive deficits may be present, however, it appears behaviors result in decreased ability for full evaluation. If cognitive concerns remain following reduced behaviors, please consult speech pathology. Thank you. RHETT BRITO Jul 02, 2022 08:32
[2022-07-02] MEDS ORDERED: NON-FORMULARY MEDICATION 1 EA EA (Pravastatin Sodium 40 MG) PO SCH (09:00)
[2022-07-02] MEDS ORDERED: traZODone 50 MG (DESYREL) TAB PO SCH (09:00)
[2022-07-02] MEDS: DOCUSATE SODIUM 100 MG (COLACE) CAP PO SCH ×3 (10:53→22:21)
[2022-07-02] MEDS: ASPIRIN 81 MG CHEW (CHILDREN'S ASA) PO SCH (10:53)
[2022-07-02] MEDS: GABAPENTIN 300 MG (NEURONTIN) CAP PO SCH ×3 (10:53→23:45)
[2022-07-02] MEDS: OXYBUTYNIN (DITROPAN) 5 MG TAB PO SCH ×3 (10:54→19:53)
[2022-07-02] MEDS: FOLIC ACID 1 MG TAB PO SCH (10:54)
[2022-07-02] MEDS: METHOCARBAMOL 500 MG (ROBAXIN) TABLET PO SCH ×4 (10:54→23:36)
[2022-07-02] MEDS: SENNA W/DOCUSATE (SENOKOT S) TABLET PO SCH ×3 (10:54→22:21)
[2022-07-02] MEDS: TAMSULOSIN 0.4 MG (FLOMAX) CAP PO SCH (10:54)
[2022-07-02] MEDS: polyethylene glycoL POWDER 17 GM (MIRALAX) PACK PO SCH ×2 (10:54→19:53)
[2022-07-02] MEDS: BISACODYL 10 MG SUPP (DULCOLAX) RC SCH (10:55)
--- NOTE | 2022-07-02 11:16 | Occ Therapy Progress Note ---
Therapy Progress Note OT orders received. Per team conference this AM with director of midwifery/staff midwife, pt is not appropriate for rehab at this time, including OT evaluation. OT will continue to monitor pt status and initiate OT evaluation/tx when pt is more appropriate and able to participate in therapy services. JUAN C LIM OT Jul 02, 2022 11:16
--- NOTE | 2022-07-02 11:22 | Physical Therapy Progress Note ---
Therapy Progress Note PT orders received. Per team conference this AM with staff editor, pt is not appropriate for rehab at this time, including PT evaluation. PT will continue to monitor pt status and initiate PT evaluation/tx when pt is more appropriate and able to participate in therapy services. ESTHER SIDDIQI PT Jul 02, 2022 11:22
[2022-07-02 14:47] VITALS: BP 146/81
[2022-07-02] MEDS ORDERED: LIDOCAINE UROJET 2% GEL 10 ML PKG TOP PRN (17:30)
[2022-07-02 17:55] LABS: CLARITY,URINE CLEAR; COLOR,URINE YELLOW; GLUCOSE, URINE (UA) NEGATIVE (NEGATIVE); KETONES,URINE 3+ (NEGATIVE); LEUKOCYTE ESTERASE ,URINE NEGATIVE (NEGATIVE); NITRITE,URINE NEGATIVE (NEGATIVE); PROTEIN,URINE TRACE (NEGATIVE)
[2022-07-02 18:20] LABS: BACTERIA,URINE TRACE /HPF; RBC,URINE 0-2 /HPF
[2022-07-02 18:21] LABS: BILIRUBIN,URINE 1+ (NEGATIVE)
[2022-07-02] MEDS: AtorvaSTATin TABLET 10 MG TABLET PO SCH (19:53)
[2022-07-02 20:25] VITALS: BP 143/81
[2022-07-03] MEDS: ACETAMINOPHEN 500 MG TAB (TYLENOL) PO SCH ×2 (02:03→11:03)
[2022-07-03] MEDS: HYOSCYAMINE 0.125 MG (LEVSIN) TAB SL SCH (02:04)
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
--- NOTE | 2022-07-03 05:01 | Individualized Plan of Care ---
Individualized Plan of Care Rehab Nursing IPOC Order Admission Date Jul 01, 2022 at 11:46 Current Orders Orders Admission Order(Inpt,Obs,Sdc) (06/30/22 17:01) Vital Signs: Per Unit Policy ( 08,16,00 (06/30/22 17:01) Ramana Palma (06/30/22 17:01) Sequential Compression Device (06/30/22 17:01) Pole Classifier-Inpt Rehab Con (06/30/22 17:01) Rehab Nursing Orders-Ipoc (06/30/22 17:01) Physical Therapy Rehab Orders (06/30/22 17:01) Occupational Therapy Rehab Ord (06/30/22 17:01) Speech Therapy Rehab Orders (06/30/22 17:) Cbc With Automated Diff (07/02/22 06:00) Comprehensive Metabolic Panel (07/02/22 06:00) Precautions (Aru) (06/30/22 17:01) Weekly Weight WEEK (06/30/22 17:01) Rehab-Intensity Of Therapy (06/30/22 17:01) Initiate Admission Nursing Pro .admission (06/30/22 17:01) Alprazolam Tablet (Xanax Tablet) (06/30/22 17:15) Calcium Carbonate Chew Tablet (Antacid C (06/30/22 17:15) Diphenhydramine Tablet (Benadryl Tablet) (06/30/22 17:15) Docusate Sodium Capsule (Colace Capsule) (06/30/22 21:00) Docusate Sodium Capsule (Colace Capsule) (06/30/22 17:15) Lactulose Oral Solution (Enulose Oral So (06/30/22 17:15) Na Phos/Na Biphos Enema (Fleet Enema Rayo (06/30/22 17:15) Guaifenesin/Codeine Syrup (Robitussin Ac (06/30/22 17:15) Loperamide Tablet (Imodium Tablet) (06/30/22 17:15) Melatonin Tablet (Melatonin Tablet) (06/30/22 17:15) Polyethylene Glycol Powder Pkt (Miralax (06/30/22 21:00) Ondansetron Oral Dissolve Tab (Zofran (06/30/22 17:15) Senna S Tablet (Senokot S Tablet) (06/30/22 21:00) Initiate Admission Nursing Pro .admission (06/30/22 17:01) Admission Arrival Bed Request (07/01/22 11:46) Acetaminophen Tablet (Tylenol Tablet) (07/01/22 15:45) Aspirin Chewable Tablet (Baby Aspirin Ch (07/02/22 09:00) Bisacodyl Suppository (Dulcolax Supposit (07/02/22 09:00) Gabapentin Capsule/Tablet (Neurontin Cap (07/01/22 15:45) Lidocaine 4% Patch (Salonpas 4% Patch) (07/01/22 15:45) Methocarbamol Tablet (Robaxin Tablet) (07/01/22 21:00) Oxycodone/Apap 5/325mg Tablet (Percocet (07/01/22 15:45) Tamsulosin Capsule (Flomax Capsule) (07/02/22 09:00) Trazodone Tablet (Desyrel Tablet) (07/02/22 09:00) Heparin Injection (Heparin Injection) (07/01/22 22:00) Hyoscyamine Sl Tablet (Levsin Sl Tablet) (07/01/22 16:45) Insulin Aspart (Novolog) (Novolog (Charg (07/01/22 17:00) Insulin Determir (Per Unit) (Levemir (Pe (07/01/22 21:00) Accucheck Achs ACHS (07/01/22 15:47) Insulin Aspart (Novolog) (Novolog (Charg (07/01/22 16:00) Cho 90g/M 0snack (25-2900 Valentin) (07/01/22 Dinner) Therapeutic Multivitamin Tab (Vitamins, (07/02/22 07:00) Thiamine Tablet (Vitamin B-1 Tablet) (07/02/22 07:00) Folic Acid Tablet (Folic Acid Tablet) (07/02/22 09:00) Ziprasidone Injection (Geodon Injection) (07/01/22 16:00) Water (Sterile) For Injection (Sterile W (07/01/22 16:00) Lorazepam Injection (Ativan Injection) (07/01/22 16:00) Lorazepam Tablet (Ativan Tablet) (07/01/22 16:00) Oxycodone/Apap 5/325mg Tablet (Percocet (07/01/22 16:30) Atorvastatin Tablet (Lipitor Tablet) (07/01/22 21:00) Water (Sterile) For Injection (Sterile W (07/01/22 18:29) Oxybutynin Tablet (Ditropan Tablet) (07/01/22 21:00) Straight Cath (Urinary) (07/02/22 17:21) Ua Culture If Indicated (07/02/22 17:49) Lidocaine 2% (Urojet) (Xylocaine Urojet) (07/02/22 17:30) Urine Culture (07/02/22 17:48) Trazodone Tablet (Desyrel Tablet) (07/03/22 21:00) Hydrocodone/Apap 10/325 Tablet (Lortab 1 (07/03/22 09:00) Hyoscyamine Sl Tablet (Levsin Sl Tablet) (07/03/22 09:00) Acetaminophen Tablet (Tylenol Tablet) (07/03/22 11:30) Rehab Nursing Orders: Ongoing Assess. of Cognitive Status, Ongoing Assess. of Function Status, Bladder Management, Bladder Scan, Bladder Training, Disease Management & Educaiton, DVT Prophylaxis, Fall Prevention, Fluid/Electrolyte/Nutrition Mgmt, Infection Prevention, Medication Management & Education, Management of Risks & Complications, Management of Skin Intergrity, Nutrition Management, Pain Management, Patient/Family Support Intensity of Therapy to be met Patient to be seen: Min.3h per day/5 of 7d PT IPOC Problem List: Activity Tolerance, Functional Strength Treatment Plan: Continue Plan of Care (attempt to work with patient) Treatment Duration: Jul 03, 2022 Frequency: Estimated Hrs Per Day: Other OT IPOC Problems: No Skilled OT Needs ID'd, Decreased Activ Tolerance, Decreased UE Strength, Dependent Transfers OT Treatment, Training and Edu: Yes Plan of Care: ADL Retraining, Caregiver Training Treatment Duration: Jul 03, 2022 Frequency: Modified Program (IRF) Estimated Hrs Per Day: Other ST IPOC Speech Therapy Treatment Plan: Continue Plan of Care Treatment Duration: Jul 03, 2022 Frequency: Modified Program (IRF) Estimated Hrs Per Day: Other Pole Classifier/Case Mgmt Pole Classifier/Case Managemen: Discharge Planning Dietitian/Data Examination Clerk Dietitian/Data Examination Clerk to monitor nutritional status and make changes and/or recommendations as needed and work with speech pathology on dietary upgrades as the occur. Physician IPOC Medical Issues being managed closely and that require the 24 hour availability of a physician: Severe delirium with severe aggression and refusal to take meds or eat and requiring antipsychotic treatment will require close monitoring Medical Issues: Bowel/Bladder Function, DVT Prophylaxis, Falls Precautions, Fluid/Electrolyte/Nutrition Balance, Infection Protection, Pain Management, Swallowing Precautions, Wound Care Brief Synthesis of Preadmission Screen, Post-Admission Evaluation, and Therapy Evaluations: PT OT ST will all try to work with the patient and try to improve his cognition with therapy if patient allows Medical Prognosis: Guarded Anticipated Length of Stay: 7 days LIA CHANEY DO Jul 03, 2022 05:01
[2022-07-03] MEDS: MULTIVIT W/MINERALS TAB (THERAGRAN M) PO SCH (06:44)
[2022-07-03] MEDS: inSUlin ASPART (NovoLOG) 1 UNIT/0.01 ML (CHARGE PER UNIT) SC SCH ×7 (06:44→20:44)
[2022-07-03] MEDS: THIAMINE 100 MG (VITAMIN B-1) TAB PO SCH (06:44)
[2022-07-03] MEDS: GABAPENTIN 300 MG (NEURONTIN) CAP PO SCH ×3 (07:13→22:19)
[2022-07-03 07:41] VITALS: BP 144/76
[2022-07-03] MEDS ORDERED: HYOSCYAMINE 0.125 MG (LEVSIN) TAB SL PRN (09:00)
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
[2022-07-03] MEDS: METHOCARBAMOL 500 MG (ROBAXIN) TABLET PO SCH ×3 (09:59→20:37)
[2022-07-03] MEDS: ASPIRIN 81 MG CHEW (CHILDREN'S ASA) PO SCH (09:59)
[2022-07-03] MEDS: FOLIC ACID 1 MG TAB PO SCH (09:59)
[2022-07-03] MEDS: TAMSULOSIN 0.4 MG (FLOMAX) CAP PO SCH (09:59)
[2022-07-03] MEDS: DOCUSATE SODIUM 100 MG (COLACE) CAP PO SCH ×2 (10:00→20:36)
[2022-07-03] MEDS: SENNA W/DOCUSATE (SENOKOT S) TABLET PO SCH ×2 (10:00→20:37)
[2022-07-03] MEDS: polyethylene glycoL POWDER 17 GM (MIRALAX) PACK PO SCH ×2 (10:00→20:44)
[2022-07-03] MEDS: BISACODYL 10 MG SUPP (DULCOLAX) RC SCH (10:02)
[2022-07-03] MEDS ORDERED: OXYB15TA19 PO (10:05)
[2022-07-03] MEDS ORDERED: INSU100V42 SQ (10:05)
[2022-07-03] MEDS ORDERED: POLY17PO6 PO (10:05)
[2022-07-03] MEDS ORDERED: OXC5T PO (10:05)
[2022-07-03] MEDS ORDERED: SENN-109 PO (10:05)
[2022-07-03] MEDS ORDERED: NEOM28OI TP (10:05)
[2022-07-03] MEDS ORDERED: MELA10TA2 PO (10:05)
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
--- NOTE | 2022-07-03 13:37 | Occupational Ther Daily Note ---
OT Current Status-Daily Note Subjective Pt in bed, son states pt has ate 1/2 of lunch. ADL-Treatment Therapy Code Descriptions/Definitions Functional [place] Measure: 0=Not Assessed/NA 4=Minimal Assistance 1=Total Assistance 5=Supervision or Setup 2=Maximal Assistance 6=Modified [place] 3=Moderate Assistance 7=Complete IndependenceSCALE: Activities may be completed with or without assistive devices. 1-Pyqvqftkif-hryvwlk completes the activity by him/herself with no assistance from a helper. 5-Set-up or Clean-up Assistance-helper sets up or cleans up; patient completes activity. [place] assists only prior to or following the activity. 4-Supervision or Touching Assistance-helper provides verbal cues and/or touching/steadying and/or contact guard assistance as patient completes activity. Assistance may be provided throughout the activity or intermittently. 3-Partial/Moderate Assistance-helper does LESS THAN HALF the effort. [place] lifts, holds or supports trunk or limbs, but provides less than half the effort. 2-Substantial/Maximal Assistance-helper does MORE THAN HALF the effort. [place] lifts or holds trunk or limbs and provides more than half the effort. 7-Swsorhodr-vexsda does ALL the effort. Patient does none of the effort to complete the activity. Or, the assistance of 2 or more helpers is required for the patient to complete the activity. If activity was not attempted, code reason: 7-Patient Refused. 9-Not Applicable-not attempted and the patient did not perform the activity before the current illness, exacerbation or injury. 10-Not Attempted due to Environmental Limitations-(lack of equipment, weather restraints, etc.). 88-Not Attempted due to Medical Conditions or Safety Concerns. Eating (QC): 5 (set up per son report.) Other Treatment OT/PT cotreat due to skill of 2 clinicians required which a rehabilitation medicine physician could not perform in order to coordinate UE/LEs, decrease fall risk, and due to pt's limitations in strength, activity tolerance, mobility/transfers. OT focused on ADLs, UE placement, cues for sequencing and safety. PT focused on LE placement, gross overall movement, transfers and mobility. Pt transferred supine to sit EOB, then stood at EOB ~30 seconds. Pt reports needing to sit back down, then lay down, transferred supine. after rest break, pt transferred to EOB, stood at FWW, and transferred into bathroom and onto toilet using FWW, Cues required for safety and sequencing. Pt completed toileting, total assist x2. Pt transferred to w/c and planned on going to therapy gym, but another worker present for mental screening/evaluation so treatment terminated. Post tx, pt up in w/c in room, all needs met. son present, instructions to son to use call light to get pt back to bed afterwards, he verbalized understanding. Max A supine to/from sit, mod A sit to stand, mod A transfer into bathroom using FWW. Max A stand from toilet. OT Short Term Goals Short Term Goals Time Frame: Jul 20, 2022 Upper body dressin Lower body dressin Putting on/taking off footwear: 2 OT Needleworker Goals Needleworker Goals Time Frame: Aug 02, 2022 Acute change in mental status: 1 Inattention: 1 Disorganized thinkin Altered level of consciousness: 1 Eating (QC): 5 Oral Hygiene (QC): 5 Toileting Hygiene (QC): 4 Shower/Bathe Self (QC): 4 Upper Body Dressing (QC): 4 Lower Body Dressing (QC): 3 On/Off Footwear (QC): 3 Additional Goals: 1-Demonstrate ADL Tasks, 2-Verbalize Understanding, 3- ImproveStrength/Teddy 1=Demonstrate adherence to instructed precautions during ADL tasks. 2=Patient will verbalize/demonstrate understanding of assistive dev ices/modifications for ADL. 3=Patient will improve strength/tolerance for activity to enable patient to perform ADL's. OT Education/Plan Problem List/Assessment Assessment: Decreased Activ Tolerance, Decreased Safety Aware, Decreased UE Strength, Impaired Bed Mobility, Impaired Funct Balance, Impaired I ADL's, Impaired Self-Care Skills, Restricted Funct UE ROM Discharge Recommendations Plan/Recommendations: Continue POC Treatment Plan/Plan of Care Patient would benefit from OT for education, treatment and training to promote independence in ADL's, mobility, safety and/or upper extremity function for ADL's. Plan of Care: ADL Retraining, Caregiver Training, Functional Mobility, Group Exercise/Act as Ind, UE Funct Exercise/Act, UE Neuromus Re-Ed/Coord, W/C Management Training Treatment Duration: Aug 02, 2022 Frequency: At least 5 of 7 days/Wk (IRF) Estimated Hrs Per Day: 1.5 hours per day Rehab Potential: Guarded Time Start Time: 13:00 Stop Time: 13:30 DATE: Jul 03, 2022 Total Time Billed (hr/min): 30 Billed Treatment Time cotreat x30 1, ADL 2 JUAN C LIM OT Jul 03, 2022 13:37
--- NOTE | 2022-07-03 13:39 | Physical Therapy Daily Note ---
PT Daily Note-Current Subjective Patient in bed pre tx, agrees to PT, has 10/10 neck pain. Will be co-treating with OT due to poor patient mobility, severe pain, severe debility, coordinate UE and LE with activity, safety and reduce risk of falls. Pain Section J - Health Conditions 1. Rarely or not at all 2. Occasionally 3. Frequently 4. Almost constantly 8. Unable to answer Pain Effect on Sleep: 4 Pain Interference with Therapy: 4 Pain Interference w/Day-to-Day: 4 Appearance Patient in WC in room post tx, behavioral health is here to see him. Mental Status Patient Orientation: Person, Confused Transfers SCALE: Activities may be completed with or without assistive devices. 2-Fpriuajxcn-ahqxixx completes the activity by him/herself with no assistance from a helper. 5-Set-up or Clean-up Assistance-helper sets up or cleans up; patient completes activity. [place] assists only prior to or following the activity. 4-Supervision or Touching Assistance-helper provides verbal cues and/or touching/steadying and/or contact guard assistance as patient completes activity. Assistance may be provided throughout the activity or intermittently. 3-Partial/Moderate Assistance-helper does LESS THAN HALF the effort. [place] lifts, holds or supports trunk or limbs, but provides less than half the effort. 2-Substantial/Maximal Assistance-helper does MORE THAN HALF the effort. [place] lifts or holds trunk or limbs and provides more than half the effort. 9-Bofabymvo-xsoywg does ALL the effort. Patient does none of the effort to complete the activity. Or, the assistance of 2 or more helpers is required for the patient to complete the activity. If activity was not attempted, code reason: 7-Patient Refused. 9-Not Applicable-not attempted and the patient did not perform the activity before the current illness, exacerbation or injury. 10-Not Attempted due to Environmental Limitations-(lack of equipment, weather restraints, etc.). 88-Not Attempted due to Medical Conditions or Safety Concerns. Roll Left & Right (QC): 2 Sit to Lying (QC): 2 Lying to Sitting/Side of Bed(Q: 2 Sit to Stand (QC): 2 Chair/Ejv-qw-Ldofh Xfer(QC): 3 Toilet Transfer (QC): 3 Patient sits to the side of the bed with max assist, stands for about 30 seconds before needing to sit back down, wants to lay down (max assist). After resting, patient sits back up with max assist, stands with mod assist (using walker), and ambulates to the restroom with mod assist (assist with balance and guiding walker), sits on toilet with mod assist and tries to have a BM. When done, he stands with max assist, gets wiped and brief pulled up, and ambulates a few feet to the WC and then behavioral health starts. Weight Bearing doctor's note from [facility] indicates that patient does not need a cervical collar Gait Training Distance: 10' Walk 10 feet (QC): 3 Gait Assistive Device: FWW WC follow, min to mod assist, needs help with balance and guiding walker. Patient has very uncoordinated steps. Treatments PT performed bed mobility and transfers, ambulation, toilet transfer, OT performed toileting, cleaning and brief change, UE positioning and safety during activity. Assessment Current Status: Poor Progress needs a lot of assist, fall risk PT International Account Manager Goals International Account Manager Goals PT International Account Manager Goals Time Frame: Jul 17, 2022 Roll Left & Right (QC): 4 Sit to Lying (QC): 4 Lying-Sitting on Side/Bed(QC): 4 Sit to Stand (QC): 4 Chair/Bgs-mz-Itrbi Xfer(QC): 4 Toilet Transfer (QC): 4 Car Transfer (QC): 4 Does the Patient Walk: No and Walking Goal IS indicated Walk 10 feet (QC): 4 Walk 50ft with 2 Turns (QC): 4 Walk 150 ft (QC): 4 Walking 10ft on Uneven Surface: 4 1 Step (curb) (QC): 4 4 Steps (QC): 4 12 Steps (QC): 88 Picking up an Object (QC): 4 (using senior contract specialist) Wheel 50 feet with 2 turns (QC: 9 Wheel 150 feet: 9 PT Plan Problem List Problem List: Activity Tolerance, Functional Strength, Safety, Balance, Gait, Transfer, Bed Mobility, ROM Treatment/Plan Treatment Plan: Continue Plan of Care Treatment Plan: Bed Mobility, Education, Functional Activity Teddy, Functional Strength, Group Therapy, Gait, Safety, Therapeutic Exercise, Transfers Treatment Duration: Jul 17, 2022 Frequency: At least 5 of 7 days/Wk (IRF) Estimated Hrs Per Day: 1.5 hours per day Patient and/or Family Agrees t: Yes Safety Risks/Education Patient Education: Gait Training, Transfer Techniques, Correct Positioning, Safety Issues Teaching Recipient: Patient Teaching Methods: Demonstration, Discussion Response to Teaching: Reinforcement Needed Time Time In: 1300 Time Out: 1330 DATE: Jul 03, 2022 Total Billed Treatment Time: 30 Total Billed Treatment 1 visit FA 30' ESTHER SIDDIQI PT Jul 03, 2022 13:39
--- NOTE | 2022-07-03 15:01 | Occ Therapy Progress Note ---
Therapy Progress Note Pt's son declined any further therapy at this time. Pt explained that his father was finally sleeping deeply and requested that therapy not see him anymore today because the pt had not slept or ate for a few days now. Pt's son was pleasant with refusal. Will attempt to see pt tomorrow. 1-refusal [id number] LIV BLANCHARD Jul 03, 2022 15:01
--- NOTE | 2022-07-03 15:39 | Physical Therapy Progress Note ---
Therapy Progress Note Pt's son declined any further therapy at this time. Pt explained that his father was finally sleeping deeply and requested that therapy not see him anymore today because the pt had not slept or ate for a few days now. Pt's son was pleasant with refusal. Will attempt to see pt tomorrow. 1-refusal [id number] AJAY IRVIN PAYROLL MASTER Jul 03, 2022 15:39
[2022-07-03 20:31] VITALS: BP 111/66
[2022-07-03] MEDS: traZODone 50 MG (DESYREL) TAB PO SCH (20:37)
[2022-07-03] MEDS: AtorvaSTATin TABLET 10 MG TABLET PO SCH (20:37)
[2022-07-04] MEDS: MULTIVIT W/MINERALS TAB (THERAGRAN M) PO SCH (05:34)
[2022-07-04] MEDS: THIAMINE 100 MG (VITAMIN B-1) TAB PO SCH (05:35)
[2022-07-04] MEDS: inSUlin ASPART (NovoLOG) 1 UNIT/0.01 ML (CHARGE PER UNIT) SC SCH ×7 (05:44→20:44)
[2022-07-04] MEDS: GABAPENTIN 300 MG (NEURONTIN) CAP PO SCH ×2 (06:06→15:55)
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
[2022-07-04 08:00] VITALS: BP 108/65
[2022-07-04 08:05] LABS: BASOPHILS % (AUTO) 0 % (0-10); EOSINOPHILS # (AUTO) 0.2 10^3/uL (0.0-0.3); EOSINOPHILS % (AUTO) 2 % (0-10); HEMATOCRIT 32 % (40-54); HEMOGLOBIN 11.1 g/dL (13.3-17.7); LYMPHOCYTES # (AUTO) 1.7 10^3/uL (1.0-4.0); LYMPHOCYTES % (AUTO) 16 % (12-44); MEAN CORPUSCULAR HEMOGLOBIN 31 pg (25-34); MEAN CORPUSCULAR HGB CONC 35 g/dL (32-36); MEAN CORPUSCULAR VOLUME 88 fL (80-99); MEAN PLATELET VOLUME 8.9 fL (9.0-12.2); MONOCYTES % (AUTO) 9 % (0-12); NEUTROPHILS # (AUTO) 7.9 10^3/uL (1.8-7.8); NEUTROPHILS % (AUTO) 72 % (42-75); PLATELET COUNT 439 10^3/uL (130-400)
[2022-07-04 08:25] LABS: ALBUMIN 3.3 GM/DL (3.2-4.5); POTASSIUM 4.1 MMOL/L (3.6-5.0)
[2022-07-04 08:26] LABS: CALCIUM 9.2 MG/DL (8.5-10.1)
[2022-07-04 08:27] LABS: TOTAL PROTEIN 6.9 GM/DL (6.4-8.2)
[2022-07-04 08:29] LABS: BILIRUBIN,TOTAL 0.4 MG/DL (0.1-1.0)
[2022-07-04 08:31] LABS: CREATININE SERUM 0.65 MG/DL (0.60-1.30)
[2022-07-04] MEDS: FOLIC ACID 1 MG TAB PO SCH (09:53)
[2022-07-04] MEDS: TAMSULOSIN 0.4 MG (FLOMAX) CAP PO SCH (09:53)
[2022-07-04] MEDS: METHOCARBAMOL 500 MG (ROBAXIN) TABLET PO SCH (09:53)
[2022-07-04] MEDS: ASPIRIN 81 MG CHEW (CHILDREN'S ASA) PO SCH (09:53)
--- NOTE | 2022-07-04 09:56 | Occupational Ther Daily Note ---
OT Current Status-Daily Note Subjective Pt in recliner, son Milton present. Pt agreeable to OT Tx with encouragement. Mental Status/Objective Patient Orientation: Person, Confused ADL-Treatment Therapy Code Descriptions/Definitions Functional [place] Measure: 0=Not Assessed/NA 4=Minimal Assistance 1=Total Assistance 5=Supervision or Setup 2=Maximal Assistance 6=Modified [place] 3=Moderate Assistance 7=Complete IndependenceSCALE: Activities may be completed with or without assistive devices. 1-Dfwudycjjq-lnhwxpu completes the activity by him/herself with no assistance from a helper. 5-Set-up or Clean-up Assistance-helper sets up or cleans up; patient completes activity. [place] assists only prior to or following the activity. 4-Supervision or Touching Assistance-helper provides verbal cues and/or touching/steadying and/or contact guard assistance as patient completes activity. Assistance may be provided throughout the activity or intermittently. 3-Partial/Moderate Assistance-helper does LESS THAN HALF the effort. [place] lifts, holds or supports trunk or limbs, but provides less than half the effort. 2-Substantial/Maximal Assistance-helper does MORE THAN HALF the effort. [place] lifts or holds trunk or limbs and provides more than half the effort. 4-Cipfvmswt-rzbdsm does ALL the effort. Patient does none of the effort to complete the activity. Or, the assistance of 2 or more helpers is required for the patient to complete the activity. If activity was not attempted, code reason: 7-Patient Refused. 9-Not Applicable-not attempted and the patient did not perform the activity before the current illness, exacerbation or injury. 10-Not Attempted due to Environmental Limitations-(lack of equipment, weather restraints, etc.). 88-Not Attempted due to Medical Conditions or Safety Concerns. Upper Body Dressing (QC): 2 (With encouragement, pt completed task with max A ) Lower Body Dressing (QC): 1 (Assist all parts, assist x2) On/Off Footwear: 1 (total assist ) Toileting Hygiene (QC): 1 (assist all parts, assist x2) Other Treatment OT/PT cotreat due to skill of 2 clinicians required which a rehabilitation medicine physician could not perform in order to coordinate UE/LEs, decrease fall risk, and due to pt's limitations in strength, activity tolerance, mobility/transfers. OT focused on ADLs, UE placement, cues for sequencing and safety. PT focused on LE placement, gross overall movement, transfers and mobility. Pt in recliner, clothing donned. Stood from recliner, mod A. Pt used FWW to transfer into bathroom and onto toilet. Pt attempt to have BM, but unsuccessful. Mod A sit to stand from toilet. Pt transferred to w/c, Floyd. and taken to therapy gym. Pt stood in parallel bars to work on standing tolerance, UE reaching, and weight shifting. Pt alternated hands, letting go of parallel bar 1 hand a time, x2 rounds, ~1 min each time. Pt then used FWW to perform functional mobility, 30'x3, w/c follow. Pt taken back to room, transferring from w/c to recliner, mod A. Post tx, pt in recliner, call light in reach and all needs met. Son present. Education OT Patient Education: Correct positioning, Energy conservation, Modified ADL techniques, Progress toward Goal/Update tx plan, Rehab process Teaching Recipient: Patient Teaching Methods: Discussion Response to Teaching: Verbalize Understanding OT Short Term Goals Short Term Goals Time Frame: Jul 20, 2022 Upper body dressin Lower body dressin Putting on/taking off footwear: 2 OT Export Documents Clerk Goals Alf Goals Time Frame: Aug 02, 2022 Acute change in mental status: 1 Inattention: 1 Disorganized thinkin Altered level of consciousness: 1 Eating (QC): 5 Oral Hygiene (QC): 5 Toileting Hygiene (QC): 4 Shower/Bathe Self (QC): 4 Upper Body Dressing (QC): 4 Lower Body Dressing (QC): 3 On/Off Footwear (QC): 3 Additional Goals: 1-Demonstrate ADL Tasks, 2-Verbalize Understanding, 3- ImproveStrength/Teddy 1=Demonstrate adherence to instructed precautions during ADL tasks. 2=Patient will verbalize/demonstrate understanding of assistive devices/modifications for ADL. 3=Patient will improve strength/tolerance for activity to enable patient to perform ADL's. OT Education/Plan Problem List/Assessment Assessment: Decreased Activ Tolerance, Decreased Safety Aware, Decreased UE Strength, Impaired Cognition, Impaired Coordination, Impaired Funct Balance, Impaired I ADL's, Impaired Self-Care Skills, Restricted Funct UE ROM Discharge Recommendations Plan/Recommendations: Continue POC Treatment Plan/Plan of Care Patient would benefit from OT for education, treatment and training to promote independence in ADL's, mobility, safety and/or upper extremity function for ADL's. Plan of Care: ADL Retraining, Caregiver Training Treatment Duration: Jul 03, 2022 Frequency: Modified Program (IRF) Estimated Hrs Per Day: Other Rehab Potential: Guarded Time Start Time: 09:00 Stop Time: 10:00 DATE: Jul 04, 2022 Total Time Billed (hr/min): 60 Billed Treatment Time cotreat x60' 1, ADL (15'), FA 3 (45') JUAN C LIM OT Jul 04, 2022 09:56
--- NOTE | 2022-07-04 09:56 | Physical Therapy Daily Note ---
PT Daily Note-Current Subjective Patient in recliner pre tx, agrees to PT, has unrated back pain. Will be co- treating with OT due to poor patient mobility, strength, endurance, severe debility, severe pain with activity, coordinate UE and LE with activity, safety and reduce risk of falls. Pain Section J - Health Conditions 1. Rarely or not at all 2. Occasionally 3. Frequently 4. Almost constantly 8. Unable to answer Pain Effect on Sleep: 4 Pain Interference with Therapy: 4 Pain Interference w/Day-to-Day: 4 Appearance Patient in recliner post tx with nurse call, phone, tray, all needs met, family in room. Mental Status Patient Orientation: Person, Confused used a soft neck collar for comfort Transfers SCALE: Activities may be completed with or without assistive devices. 3-Gdhcxvhufl-bwwhzaw completes the activity by him/herself with no assistance from a helper. 5-Set-up or Clean-up Assistance-helper sets up or cleans up; patient completes activity. [place] assists only prior to or following the activity. 4-Supervision or Touching Assistance-helper provides verbal cues and/or touching/steadying and/or contact guard assistance as patient completes activity. Assistance may be provided throughout the activity or intermittently. 3-Partial/Moderate Assistance-helper does LESS THAN HALF the effort. [place] lifts, holds or supports trunk or limbs, but provides less than half the effort. 2-Substantial/Maximal Assistance-helper does MORE THAN HALF the effort. [place] lifts or holds trunk or limbs and provides more than half the effort. 3-Vakcglwcl-xpibay does ALL the effort. Patient does none of the effort to complete the activity. Or, the assistance of 2 or more helpers is required for the patient to complete the activity. If activity was not attempted, code reason: 7-Patient Refused. 9-Not Applicable-not attempted and the patient did not perform the activity before the current illness, exacerbation or injury. 10-Not Attempted due to Environmental Limitations-(lack of equipment, weather restraints, etc.). 88-Not Attempted due to Medical Conditions or Safety Concerns. Sit to Stand (QC): 2 Chair/Eso-mf-Egtpa Xfer(QC): 3 Toilet Transfer (QC): 3 Patient stands from the recliner with mod assist and ambulates to the restroom and sits on the toilet. Patient tries to have a BM but only has gas, patient stands again with mod assist and his pants are pulled up and he transfers to with min assist. After getting back to his room at the end of tx patient stands from again with mod assist and transfers to recliner. Weight Bearing doctor's note from [facility] indicates that patient does not need a cervical collar Gait Training Distance: 30'x3 Walk 10 feet (QC): 3 Gait Persons Needed: 1 Gait Assistive Device: FWW follow, needs assist with balance, has decreased foot clearance on the left side and more difficulty advancing step. Very antalgic. Exercises Seated Therapy Exercises: Long arc quads Seated Reps: 20 Patient stood in the parallel bars twice for at least a minute each time working on leg stability and endurance, while alternately letting go of parallel bars. Treatments PT performed transfers, ambulation, LE ROM, standing activity, OT performed dressing, UE positioning and safety during activity, assist with safety cues. Assessment Current Status: Fair Progress uncoordinated steps, ataxic ambulation PT Fdc Goals Fdc Goals PT Fdc Goals Time Frame: Jul 17, 2022 Roll Left & Right (QC): 4 Sit to Lying (QC): 4 Lying-Sitting on Side/Bed(QC): 4 Sit to Stand (QC): 4 Chair/Twm-lh-Xcpxm Xfer(QC): 4 Toilet Transfer (QC): 4 Car Transfer (QC): 4 Does the Patient Walk: No and Walking Goal IS indicated Walk 10 feet (QC): 4 Walk 50ft with 2 Turns (QC): 4 Walk 150 ft (QC): 4 Walking 10ft on Uneven Surface: 4 1 Step (curb) (QC): 4 4 Steps (QC): 4 12 Steps (QC): 88 Picking up an Object (QC): 4 (using exhibit cleaner) Wheel 50 feet with 2 turns (QC: 9 Wheel 150 feet: 9 PT Plan Problem List Problem List: Activity Tolerance, Functional Strength, Safety, Balance, Gait, Transfer, Bed Mobility, ROM Treatment/Plan Treatment Plan: Continue Plan of Care Treatment Plan: Bed Mobility, Education, Functional Activity Teddy, Functional Strength, Group Therapy, Gait, Safety, Therapeutic Exercise, Transfers Treatment Duration: Jul 03, 2022 Frequency: Estimated Hrs Per Day: Other Patient and/or Family Agrees t: Yes Safety Risks/Education Patient Education: Gait Training, Transfer Techniques, Correct Positioning, Sa fety Issues Teaching Recipient: Patient Teaching Methods: Demonstration, Discussion Response to Teaching: Reinforcement Needed Time Time In: 0900 Time Out: 1000 DATE: Jul 04, 2022 Total Billed Treatment Time: 60 Total Billed Treatment 1 visit FA 60' co-treated for 60' ESTHER SIDDIQI PT Jul 04, 2022 09:56
[2022-07-04] MEDS: SENNA W/DOCUSATE (SENOKOT S) TABLET PO SCH ×2 (09:58→20:43)
[2022-07-04] MEDS: DOCUSATE SODIUM 100 MG (COLACE) CAP PO SCH ×2 (09:58→20:43)
[2022-07-04] MEDS: ACETAMINOPHEN 500 MG TAB (TYLENOL) PO PRN (12:57)
[2022-07-04] MEDS: BISACODYL 10 MG SUPP (DULCOLAX) RC SCH (13:20)
--- NOTE | 2022-07-04 13:56 | Occupational Ther Daily Note ---
OT Current Status-Daily Note Subjective Pt in bed, agreeable to OT tx with some encouragement. Mental Status/Objective Patient Orientation: Normal For Age ADL-Treatment Therapy Code Descriptions/Definitions Functional [place] Measure: 0=Not Assessed/NA 4=Minimal Assistance 1=Total Assistance 5=Supervision or Setup 2=Maximal Assistance 6=Modified [place] 3=Moderate Assistance 7=Complete IndependenceSCALE: Activities may be completed with or without assistive devices. 8-Rcqcjcociq-pwfsxlj completes the activity by him/herself with no assistance from a helper. 5-Set-up or Clean-up Assistance-helper sets up or cleans up; patient completes activity. [place] assists only prior to or following the activity. 4-Supervision or Touching Assistance-helper provides verbal cues and/or touching/steadying and/or contact guard assistance as patient completes activity. Assistance may be provided throughout the activity or intermittently. 3-Partial/Moderate Assistance-helper does LESS THAN HALF the effort. [place] lifts, holds or supports trunk or limbs, but provides less than half the effort. 2-Substantial/Maximal Assistance-helper does MORE THAN HALF the effort. [place] lifts or holds trunk or limbs and provides more than half the effort. 6-Qbosfaavh-cffzda does ALL the effort. Patient does none of the effort to complete the activity. Or, the assistance of 2 or more helpers is required for the patient to complete the activity. If activity was not attempted, code reason: 7-Patient Refused. 9-Not Applicable-not attempted and the patient did not perform the activity before the current illness, exacerbation or injury. 10-Not Attempted due to Environmental Limitations-(lack of equipment, weather restraints, etc.). 88-Not Attempted due to Medical Conditions or Safety Concerns. Other Treatment OT/PT cotreat due to skill of 2 clinicians required which a rehabilitation counselor could not perform in order to coordinate UE/LEs, decrease fall risk, and due to pt's limitations in strength, activity tolerance, mobility/transfers. OT focused on ADLs, UE placement, cues for sequencing and safety. PT focused on LE placement, gross overall movement, transfers and mobility. Pt transferred supine to sit EOB, then used FWW to perform functional mobility x3 rounds. Pt returned to room via w/c, transferring to bed and supine. Assist x2 to scoot up towards HOB. Post tx, pt in bed, call light in reach and all needs met, son present. Max A rolling and sit to/from supine, mod A sit to/from stand and bed to chair transfer. OT Short Term Goals Short Term Goals Time Frame: Jul 20, 2022 Upper body dressin Lower body dressin Putting on/taking off footwear: 2 OT Prison Goals Dioramist Goals Time Frame: Aug 02, 2022 Acute change in mental status: 1 Inattention: 1 Disorganized thinkin Altered level of consciousness: 1 Eating (QC): 5 Oral Hygiene (QC): 5 Toileting Hygiene (QC): 4 Shower/Bathe Self (QC): 4 Upper Body Dressing (QC): 4 Lower Body Dressing (QC): 3 On/Off Footwear (QC): 3 Additional Goals: 1-Demonstrate ADL Tasks, 2-Verbalize Understanding, 3-Imp roveStrength/Teddy 1=Demonstrate adherence to instructed precautions during ADL tasks. 2=Patient will verbalize/demonstrate understanding of assistive devices/modifications for ADL. 3=Patient will improve strength/tolerance for activity to enable patient to perform ADL's. OT Education/Plan Problem List/Assessment Assessment: Decreased Activ Tolerance, Decreased Safety Aware, Decreased UE Strength, Impaired Coordination, Impaired Funct Balance, Impaired I ADL's, Impaired Self-Care Skills, Restricted Funct UE ROM Discharge Recommendations Plan/Recommendations: Continue POC Treatment Plan/Plan of Care Patient would benefit from OT for education, treatment and training to promote independence in ADL's, mobility, safety and/or upper extremity function for ADL's. Plan of Care: ADL Retraining, Caregiver Training Treatment Duration: Jul 03, 2022 Frequency: Modified Program (IRF) Estimated Hrs Per Day: Other Rehab Potential: Guarded Time Start Time: 13:30 Stop Time: 14:00 DATE: Jul 04, 2022 Total Time Billed (hr/min): 30 Billed Treatment Time cotreat x30 1, FA 2 JUAN C LIM OT Jul 04, 2022 13:56
--- NOTE | 2022-07-04 14:04 | Physical Therapy Daily Note ---
PT Daily Note-Current Subjective Patient in bed pre tx, agrees to PT, has unrated back pain. Will be co-treating with OT due to poor patient mobility, strength, endurance, severe pain with activity, severe debility, coordinate UE and LE during activity, safety and reduce risk of falls. Pain Section J - Health Conditions 1. Rarely or not at all 2. Occasionally 3. Frequently 4. Almost constantly 8. Unable to answer Pain Effect on Sleep: 4 Pain Interference with Therapy: 4 Pain Interference w/Day-to-Day: 4 Appearance Patient in bed post tx with nurse call, phone, tray, all needs met, family in room. Mental Status Patient Orientation: Person, Confused Transfers SCALE: Activities may be completed with or without assistive devices. 4-Hycamjhohz-zaaoxxn completes the activity by him/herself with no assistance from a helper. 5-Set-up or Clean-up Assistance-helper sets up or cleans up; patient completes activity. [place] assists only prior to or following the activity. 4-Supervision or Touching Assistance-helper provides verbal cues and/or touching/steadying and/or contact guard assistance as patient completes activity. Assistance may be provided throughout the activity or intermittently. 3-Partial/Moderate Assistance-helper does LESS THAN HALF the effort. [place] lifts, holds or supports trunk or limbs, but provides less than half the effort. 2-Substantial/Maximal Assistance-helper does MORE THAN HALF the effort. [place] lifts or holds trunk or limbs and provides more than half the effort. 5-Ythuauksg-qkcssq does ALL the effort. Patient does none of the effort to complete the activity. Or, the assistance of 2 or more helpers is required for the patient to complete the activity. If activity was not attempted, code reason: 7-Patient Refused. 9-Not Applicable-not attempted and the patient did not perform the activity before the current illness, exacerbation or injury. 10-Not Attempted due to Environmental Limitations-(lack of equipment, weather restraints, etc.). 88-Not Attempted due to Medical Conditions or Safety Concerns. Roll Left & Right (QC): 2 Sit to Lying (QC): 2 Lying to Sitting/Side of Bed(Q: 2 Sit to Stand (QC): 3 Chair/Qfe-oj-Ealyx Xfer(QC): 3 Weight Bearing doctor's note from [facility] indicates that patient does not need a cervical collar Gait Training Distance: 30'x3 Walk 10 feet (QC): 3 Gait Assistive Device: FWW WC follow, min assist to help with balance and guiding walker, patient has difficulty advancing his left foot, has left knee hyperextension Treatments bed mobility and transfers, ambulation Assessment Current Status: Fair Progress slow progress but better ambulation than yesterday PT [facility] Goals Rhythmic Gymnastics Coach Goals PT Rhythmic Gymnastics Coach Goals Time Frame: Jul 17, 2022 Roll Left & Right (QC): 4 Sit to Lying (QC): 4 Lying-Sitting on Side/Bed(QC): 4 Sit to Stand (QC): 4 Chair/Bqn-so-Bdfap Xfer(QC): 4 Toilet Transfer (QC): 4 Car Transfer (QC): 4 Does the Patient Walk: No and Walking Goal IS indicated Walk 10 feet (QC): 4 Walk 50ft with 2 Turns (QC): 4 Walk 150 ft (QC): 4 Walking 10ft on Uneven Surface: 4 1 Step (curb) (QC): 4 4 Steps (QC): 4 12 Steps (QC): 88 Picking up an Object (QC): 4 (using cinder worker) Wheel 50 feet with 2 turns (QC: 9 Wheel 150 feet: 9 PT Plan Problem List Problem List: Activity Tolerance, Functional Strength, Safety, Balance, Gait, Transfer, Bed Mobility, ROM Treatment/Plan Treatment Plan: Continue Plan of Care Treatment Plan: Bed Mobility, Education, Functional Activity Teddy, Functional Strength, Group Therapy, Gait, Safety, Therapeutic Exercise, Transfers Treatment Duration: Jul 03, 2022 Frequency: Estimated Hrs Per Day: Other Patient and/or Family Agrees t: Yes Safety Risks/Education Patient Education: Gait Training, Transfer Techniques, Correct Positioning, Safety Issues Teaching Recipient: Patient Teaching Methods: Demonstration, Discussion Response to Teaching: Reinforcement Needed Time Time In: 1330 Time Out: 1400 DATE: Jul 04, 2022 Total Billed Treatment Time: 30 Total Billed Treatment 1 visit FA 30' ESTHER SIDDIQI PT Jul 04, 2022 14:04
[2022-07-04] MEDS: polyethylene glycoL POWDER 17 GM (MIRALAX) PACK PO SCH ×2 (14:25→20:44)
[2022-07-04] MEDS: METHOCARBAMOL 500 MG (ROBAXIN) TABLET PO PRN (18:11)
[2022-07-04 19:18] VITALS: BP 103/60
[2022-07-04] MEDS: traZODone 50 MG (DESYREL) TAB PO SCH (20:43)
[2022-07-04] MEDS: AtorvaSTATin TABLET 10 MG TABLET PO SCH (20:43)
[2022-07-05] MEDS: GABAPENTIN 300 MG (NEURONTIN) CAP PO SCH ×5 (00:01→22:57)
[2022-07-05] MEDS: METHOCARBAMOL 500 MG (ROBAXIN) TABLET PO PRN ×4 (00:01→18:14)
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
[2022-07-05] MEDS: THIAMINE 100 MG (VITAMIN B-1) TAB PO SCH (06:18)
[2022-07-05] MEDS: MULTIVIT W/MINERALS TAB (THERAGRAN M) PO SCH (06:18)
[2022-07-05] MEDS: inSUlin ASPART (NovoLOG) 1 UNIT/0.01 ML (CHARGE PER UNIT) SC SCH ×7 (06:30→20:23)
[2022-07-05 07:50] VITALS: BP 107/68
[2022-07-05] MEDS: SENNA W/DOCUSATE (SENOKOT S) TABLET PO SCH ×2 (08:01→20:23)
[2022-07-05] MEDS: FOLIC ACID 1 MG TAB PO SCH (08:01)
[2022-07-05] MEDS: TAMSULOSIN 0.4 MG (FLOMAX) CAP PO SCH (08:01)
[2022-07-05] MEDS: ASPIRIN 81 MG CHEW (CHILDREN'S ASA) PO SCH (08:01)
[2022-07-05] MEDS: DOCUSATE SODIUM 100 MG (COLACE) CAP PO SCH ×2 (08:01→20:21)
[2022-07-05] MEDS: LACTULOSE SYRUP 10GM/15ML (ENULOSE) 30ML UDC PO PRN ×2 (08:02→08:04)
[2022-07-05] MEDS: ACETAMINOPHEN 500 MG TAB (TYLENOL) PO PRN (10:35)
--- NOTE | 2022-07-05 12:01 | Occupational Ther Daily Note ---
OT Current Status-Daily Note Subjective Pt up in recliner, agreeable to OT tx. Mental Status/Objective Patient Orientation: Person, Confused ADL-Treatment Therapy Code Descriptions/Definitions Functional [place] Measure: 0=Not Assessed/NA 4=Minimal Assistance 1=Total Assistance 5=Supervision or Setup 2=Maximal Assistance 6=Modified [place] 3=Moderate Assistance 7=Complete IndependenceSCALE: Activities may be completed with or without assistive devices. 9-Fhpyxvrzdm-lvxxaho completes the activity by him/herself with no assistance from a helper. 5-Set-up or Clean-up Assistance-helper sets up or cleans up; patient completes activity. [place] assists only prior to or following the activity. 4-Supervision or Touching Assistance-helper provides verbal cues and/or touching/steadying and/or contact guard assistance as patient completes activity. Assistance may be provided throughout the activity or intermittently. 3-Partial/Moderate Assistance-helper does LESS THAN HALF the effort. [place] lifts, holds or supports trunk or limbs, but provides less than half the effort. 2-Substantial/Maximal Assistance-helper does MORE THAN HALF the effort. [place] lifts or holds trunk or limbs and provides more than half the effort. 8-Fvfifivyi-cfspht does ALL the effort. Patient does none of the effort to complete the activity. Or, the assistance of 2 or more helpers is required for the patient to complete the activity. If activity was not attempted, code reason: 7-Patient Refused. 9-Not Applicable-not attempted and the patient did not perform the activity before the current illness, exacerbation or injury. 10-Not Attempted due to Environmental Limitations-(lack of equipment, weather restraints, etc.). 88-Not Attempted due to Medical Conditions or Safety Concerns. Lower Body Dressing (QC): 1 Toileting Hygiene (QC): 1 Other Treatment OT/PT cotreat due to skill of 2 clinicians required which a rehab rn could not perform in order to coordinate UE/LEs, decrease fall risk, and due to pt's limitations in strength, activity tolerance, mobility/transfers. OT focused on ADLs, UE placement, cues for sequencing and safety. PT focused on LE placement, gross overall movement, transfers and mobility. Pt in recliner, stood at recliner for pant hike and then transferred to w/c. TENS unit applied to pt's back by PT, OT assisted with managing clothing and sitting balance as needed. Pt taken to therapy gym. Pt stood in parallel bars, completing BUE tabletop reaching task, using BUEs. Pt able to take wooden pegs, remove from board, manipulate in his hand, and place back into the board. Pt able to complete x20 pegs before needing to sit. Pt then transferred to therapy mat, completing UE reaching task and sitting balance task to improve static and dynamic sitting balance and core strength. Pt requests to use bathroom, transferred to w/c, taken to bathroom, then transferred to toilet. Pt attempted to have BM, but unsuccessful. Pt used FWW to perform functional mobility to EOB, then supine, assist x2 to scoot up towards HOB. Please refer to PT note for QC scores associated with mobility/transfers. Post tx, pt in bed, call light in reach and all needs met, bed alarm activated. Education OT Patient Education: Correct positioning, Energy conservation, Modified ADL techniques, Progress toward Goal/Update tx plan, Purpose of tx/functional activities, Rehab process Teaching Recipient: Patient Teaching Methods: Discussion Response to Teaching: Verbalize Understanding OT Short Term Goals Short Term Goals Time Frame: Jul 20, 2022 Upper body dressin Lower body dressin Putting on/taking off footwear: 2 OT It Account Manager Goals Long-Term Goals Time Frame: Aug 02, 2022 Acute change in mental status: 1 Inattention: 1 Disorganized thinkin Altered level of consciousness: 1 Eating (QC): 5 Oral Hygiene (QC): 5 Toileting Hygiene (QC): 4 Shower/Bathe Self (QC): 4 Upper Body Dressing (QC): 4 Lower Body Dressing (QC): 3 On/Off Footwear (QC): 3 Additional Goals: 1-Demonstrate ADL Tasks, 2-Verbalize Understanding, 3- ImproveStrength/[place] 1=Demonstrate adherence to instructed precautions during ADL tasks. 2=Patient will verbalize/demonstrate understanding of assistive devices/modifications for ADL. 3=Patient will improve strength/tolerance for activity to enable patient to perform ADL's. OT Education/Plan Problem List/Assessment Assessment: Decreased Activ Tolerance, Decreased UE Strength, Impaired Funct Balance, Impaired I ADL's, Impaired Self-Care Skills, Restricted Funct UE ROM Discharge Recommendations Plan/Recommendations: Continue POC Treatment Plan/Plan of Care Patient would benefit from OT for education, treatment and training to promote independence in ADL's, mobility, safety and/or upper extremity function for ADL's. Plan of Care: ADL Retraining, Caregiver Training Treatment Duration: Jul 03, 2022 Frequency: Modified Program (IRF) Estimated Hrs Per Day: Other Rehab Potential: Guarded Time Start Time: 11:00 Stop Time: 12:00 DATE: Jul 05, 2022 Total Time Billed (hr/min): 60 Billed Treatment Time glennreat x60 1, ADL (15'), FA 3 (45') JUAN C LIM OT Jul 05, 2022 12:00
--- NOTE | 2022-07-05 13:04 | Occupational Ther Daily Note ---
OT Current Status-Daily Note Subjective Pt in bed, agreeable to OT Tx. Mental Status/Objective Patient Orientation: Person, Confused ADL-Treatment Therapy Code Descriptions/Definitions Functional [place] Measure: 0=Not Assessed/NA 4=Minimal Assistance 1=Total Assistance 5=Supervision or Setup 2=Maximal Assistance 6=Modified [place] 3=Moderate Assistance 7=Complete IndependenceSCALE: Activities may be completed with or without assistive devices. 4-Hxcmuzsuhp-ixcuznb completes the activity by him/herself with no assistance from a helper. 5-Set-up or Clean-up Assistance-helper sets up or cleans up; patient completes activity. [place] assists only prior to or following the activity. 4-Supervision or Touching Assistance-helper provides verbal cues and/or touching/steadying and/or contact guard assistance as patient completes activity. Assistance may be provided throughout the activity or intermittently. 3-Partial/Moderate Assistance-helper does LESS THAN HALF the effort. [place] lifts, holds or supports trunk or limbs, but provides less than half the effort. 2-Substantial/Maximal Assistance-helper does MORE THAN HALF the effort. [place] lifts or holds trunk or limbs and provides more than half the effort. 9-Lnkwniqda-dynxdv does ALL the effort. Patient does none of the effort to complete the activity. Or, the assistance of 2 or more helpers is required for the patient to complete the activity. If activity was not attempted, code reason: 7-Patient Refused. 9-Not Applicable-not attempted and the patient did not perform the activity before the current illness, exacerbation or injury. 10-Not Attempted due to Environmental Limitations-(lack of equipment, weather restraints, etc.). 88-Not Attempted due to Medical Conditions or Safety Concerns. Eating (QC): 5 Other Treatment Pt in bed, agreeable to OT Tx with some encouragement. OT tx focused on UE strengthening and activity tolerance. Pt completed x10 reps each of the following BUE exercises: shoulder flexion (approx 100 degrees b/l), elbow flexion/extension, front punch. Pt's son educated on AROM exercises that pt can do throughout the day. Printed HEP left with pt's son, he verbalized understanding. Post tx, pt in bed, call light in reach and all needs met, son present. OT Short Term Goals Short Term Goals Time Frame: Jul 20, 2022 Upper body dressin Lower body dressin Putting on/taking off footwear: 2 OT Penitentiary Goals Penitentiary Goals Time Frame: Aug 02, 2022 Acute change in mental status: 1 Inattention: 1 Disorganized thinkin Altered level of consciousness: 1 Eating (QC): 5 Oral Hygiene (QC): 5 Toileting Hygiene (QC): 4 Shower/Bathe Self (QC): 4 Upper Body Dressing (QC): 4 Lower Body Dressing (QC): 3 On/Off Footwear (QC): 3 Additional Goals: 1-Demonstrate ADL Tasks, 2-Verbalize Understanding, 3- ImproveStrength/[place]eddy 1=Demonstrate adherence to instructed precautions during ADL tasks. 2=Patient will verbalize/demonstrate understanding of assistive devices/modifications for ADL. 3=Patient will improve strength/tolerance for activity to enable patient to perform ADL's. OT Education/Plan Problem List/Assessment Assessment: Decreased Activ Tolerance, Decreased UE Strength, Impaired Funct Balance, Impaired I ADL's, Impaired Self-Care Skills, Restricted Funct UE ROM Discharge Recommendations Plan/Recommendations: Continue POC Treatment Plan/Plan of Care Patient would benefit from OT for education, treatment and training to promote independence in ADL's, mobility, safety and/or upper extremity function for ADL's. Plan of Care: ADL Retraining, Caregiver Training Treatment Duration: Jul 03, 2022 Frequency: Modified Program (IRF) Estimated Hrs Per Day: Other Rehab Potential: Guarded Time Start Time: 13:00 Stop Time: 13:30 DATE: Jul 05, 2022 Total Time Billed (hr/min): 30 Billed Treatment Time 1, EX 2 JUAN C LIM OT Jul 05, 2022 13:04
[2022-07-05] MEDS: polyethylene glycoL POWDER 17 GM (MIRALAX) PACK PO SCH ×2 (14:35→20:23)
[2022-07-05] MEDS: CEPHALEXIN 250 MG (KEFLEX) CAP PO SCH ×3 (15:12→20:21)
--- NOTE | 2022-07-05 15:12 | Physical Therapy Daily Note ---
PT Daily Note-Current Subjective Patient somewhat lethargic when therapy entered room, but patient and son agreeable to trial of TENS to help with pain control during therapy session. Rates pain as "bad" in midback, no numeric rating given. Pain Section J - Health Conditions 1. Rarely or not at all 2. Occasionally 3. Frequently 4. Almost constantly 8. Unable to answer Pain Effect on Sleep: 4 Pain Interference with Therapy: 4 Pain Interference w/Day-to-Day: 4 Appearance Patient in recliner with legs elevated when P.T. entered room. Son with patient. Mental Status Patient Orientation: Person, Place, Situation Improved cognition today. No aggressive behavior. Appropriate humor during therapy session. Patient appreciative of care following session. Transfers SCALE: Activities may be completed with or without assistive devices. 8-Vvdgzzrsjv-pynqrru completes the activity by him/herself with no assistance from a helper. 5-Set-up or Clean-up Assistance-helper sets up or cleans up; patient completes activity. [place] assists only prior to or following the activity. 4-Supervision or Touching Assistance-helper provides verbal cues and/or touching/steadying and/or contact guard assistance as patient completes activity. Assistance may be provided throughout the activity or intermittently. 3-Partial/Moderate Assistance-helper does LESS THAN HALF the effort. [place] lifts, holds or supports trunk or limbs, but provides less than half the effort. 2-Substantial/Maximal Assistance-helper does MORE THAN HALF the effort. [place] lifts or holds trunk or limbs and provides more than half the effort. 6-Mebydtali-rqjbtl does ALL the effort. Patient does none of the effort to complete the activity. Or, the assistance of 2 or more helpers is required for the patient to complete the activity. If activity was not attempted, code reason: 7-Patient Refused. 9-Not Applicable-not attempted and the patient did not perform the activity before the current illness, exacerbation or injury. 10-Not Attempted due to Environmental Limitations-(lack of equipment, weather restraints, etc.). 88-Not Attempted due to Medical Conditions or Safety Concerns. Sit to Lying (QC): 3 (Mod (A) for LE's at conclusion of session) Sit to Stand (QC): 3 (min-mod (A) of 1 with max v.c. for hand placement. Performed 2 reps in room, 3 reps in therapy gym, 1 rep in bathroom) Chair/Vwr-nj-Smbnz Xfer(QC): 3 (Min (A) with FWW stand pivot recliner to w/c, w/c<>mat x 2, toilet transfer with (A) of jose.) Toilet Transfer (QC): 3 Scooting up to head of bed mod (A) of 2 with 1 therapist bracing LE's in hooklying position and 2nd therapist assist with trunk Weight Bearing Soft cervical collar used during treatment session to help alleviate neck pain for first 45 minutes. Removed last 15 minutes per patient request. Gait Training Gait training at end of session 6' into bathroom with FWW, min (A) for toileting. After toileting, ambulated from toilet to bed (~15') with FWW min (A) with patient frustrated with difficulty advancing (L) LE - patient able to step (I), but with increased effort and concentration on (L). Wheelchair Training Had patient propel w/c backward using (B) LE's for 10' in gym for LE ex - able to perform (I) with encouragement. Patient educated to hold (L) LE up using (R) LE when therapist propels w/c - patient able to perform this technique (I). Treatments standing tolerance in // bars while performing UE task with OT - able to stand 3 minutes with multiple cues to tuck hips under/not forward flex at waist - patient able to self correct, but did become fatigued and required sitting rest break afterward - cued to reach back for chair, but patient too fatiqued to comply. Hip flexion, alternating (R)/(L) in sitting x 10 (B) with max cues/encouragement (L), but able to clear (L) foot off floor x 10. (L) LAQ with AAROM for full extension with (L) heel cord stretch x :10 at end range - 10 total reps Sitting unsupported on mat with weight shifting activities - able to sit (I) and forward flex at waist to stretch back, lean laterally (R) and (L) without external support. Demonstrates good sitting balance without any external support x 5' IFC estim utilized (quadripolar placement at mid-back - area of most pain today) to patient tolerance, level 4, during all therapy activities today in attempt to provide pain reduction with less medication use. Patient stated "it might have helped a little". Removed at conclusion of session. Will continue to utilize as long as patient perceives a benefit. Assessment Current Status: Good Progress Good progress and participation and no aggressive behaviors this date. Patient did require encouragement to participate, but was appreciative of therapy services. Low activity tolerance is main limitation at this time. PT Shaft Mechanic Goals Mcfp Goals PT Mcfp Goals Time Frame: Jul 17, 2022 Roll Left & Right (QC): 4 Sit to Lying (QC): 4 Lying-Sitting on Side/Bed(QC): 4 Sit to Stand (QC): 4 Chair/Ymf-bs-Jlhlk Xfer(QC): 4 Toilet Transfer (QC): 4 Car Transfer (QC): 4 Does the Patient Walk: No and Walking Goal IS indicated Walk 10 feet (QC): 4 Walk 50ft with 2 Turns (QC): 4 Walk 150 ft (QC): 4 Walking 10ft on Uneven Surface: 4 1 Step (curb) (QC): 4 4 Steps (QC): 4 12 Steps (QC): 88 Picking up an Object (QC): 4 (using person investigator) Wheel 50 feet with 2 turns (QC: 9 Wheel 150 feet: 9 PT Plan Problem List Problem List: Activity Tolerance, Functional Strength, Balance, Gait, Transfer, Bed Mobility, ROM Treatment/Plan Treatment Plan: Continue Plan of Care Treatment Plan: Bed Mobility, Education, Functional Activity Teddy, Functional Strength, Group Therapy, Gait, Safety, Therapeutic Exercise, Transfers Treatment Duration: Jul 03, 2022 Frequency: Estimated Hrs Per Day: Other Patient and/or Family Agrees t: Yes Safety Risks/Education Safety Risk Comments: Needs repeated cues for hand placement sit<>stand Patient Education: Transfer Techniques Teaching Methods: Demonstration, Discussion Response to Teaching: Reinforcement Needed Time Time In: 1100 Time Out: 1200 DATE: Jul 05, 2022 Total Billed Treatment Time: 60 Total Billed Treatment 3 FA, 1 EX = 60' co-rx with OT due to patient requiring assist of 2 disciplines due to medical complexity with upright mobility/balance/transfer activities Helga Brand PT Jul 05, 2022 15:12
[2022-07-05] MEDS: BISACODYL 10 MG SUPP (DULCOLAX) RC SCH (15:24)
[2022-07-05] MEDS: traZODone 50 MG (DESYREL) TAB PO SCH (20:21)
[2022-07-05] MEDS: AtorvaSTATin TABLET 10 MG TABLET PO SCH (20:21)
[2022-07-05 20:36] VITALS: BP 100/60
--- NOTE | 2022-07-05 20:40 | Physical Therapy Daily Note ---
PT Daily Note-Current Subjective Patient fatigued this pm, but agreeable to PT. States he is having LBP this pm. Pain Section J - Health Conditions 1. Rarely or not at all 2. Occasionally 3. Frequently 4. Almost constantly 8. Unable to answer Pain Effect on Sleep: 4 Pain Interference with Therapy: 4 Pain Interference w/Day-to-Day: 4 Transfers SCALE: Activities may be completed with or without assistive devices. 3-Cgansjwoaq-ewoaous completes the activity by him/herself with no assistance from a helper. 5-Set-up or Clean-up Assistance-helper sets up or cleans up; patient completes activity. [place] assists only prior to or following the activity. 4-Supervision or Touching Assistance-helper provides verbal cues and/or touching/steadying and/or contact guard assistance as patient completes activity. Assistance may be provided throughout the activity or intermittently. 3-Partial/Moderate Assistance-helper does LESS THAN HALF the effort. [place] lifts, holds or supports trunk or limbs, but provides less than half the effort. 2-Substantial/Maximal Assistance-helper does MORE THAN HALF the effort. [place] lifts or holds trunk or limbs and provides more than half the effort. 1-Scprdsvcf-arwjvv does ALL the effort. Patient does none of the effort to complete the activity. Or, the assistance of 2 or more helpers is required for the patient to complete the activity. If activity was not attempted, code reason: 7-Patient Refused. 9-Not Applicable-not attempted and the patient did not perform the activity before the current illness, exacerbation or injury. 10-Not Attempted due to Environmental Limitations-(lack of equipment, weather restraints, etc.). 88-Not Attempted due to Medical Conditions or Safety Concerns. Weight Bearing Soft cervical collar used during treatment session to help alleviate neck pain for first 45 minutes. Removed last 15 minutes per patient request. Exercises Patient in supine for the following: (L) AAROM DF/PF wiht heel cord stretch :10 at end range, PF against resistance x 10 reps ea HIp ER/IR (L) x 10 reps with encouragement to participate, but improved motion with each rep (L) SAQ with tactile cues to quad for initiation then AAROM to reach full extensoin x 10 reps, improved contraction with each rep (L) hip abd/add x 10 reps min-mod (A) first 5 reps, then min (A) last 5 reps (L) heel slide with mod (A) fist 5 reps, then min (A) last 5 reps. LTR with initial assist to maintain (L) LE in position x 10 reps - verbalized relief with back pain. Then had patient complete 10 reps (I) without needing assist to hold (L) leg in place. Hip abd/add in hooklying x 10 reps, AROM without assist (L) quad set 5 x :05 (L) SLR to ~ 40 degrees PROM/AAROM with DF neural floss x :10 with each rep. Pedal bulb weeder brought to patient's room per son's request for exercise in evening and during weekends - will work with patient utilizing in next session. Assessment Current Status: Good Progress Excellent tolerance of (L) LE exercise this pm. LTR's reduced c/o LBP. Patient stated he had "more feeling" and "more tingling" in (L) leg following exercise. 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 Teacher Goals Skilled Nursing Goals PT Skilled Nursing Goals Time Frame: Jul 17, 2022 Roll Left & Right (QC): 4 Sit to Lying (QC): 4 Lying-Sitting on Side/Bed(QC): 4 Sit to Stand (QC): 4 Chair/Ikh-oi-Bwvcw Xfer(QC): 4 Toilet Transfer (QC): 4 Car Transfer (QC): 4 Does the Patient Walk: No and Walking Goal IS indicated Walk 10 feet (QC): 4 Walk 50ft with 2 Turns (QC): 4 Walk 150 ft (QC): 4 Walking 10ft on Uneven Surface: 4 1 Step (curb) (QC): 4 4 Steps (QC): 4 12 Steps (QC): 88 Picking up an Object (QC): 4 (using desulphuring operator) Wheel 50 feet with 2 turns (QC: 9 Wheel 150 feet: 9 PT Plan Problem List Problem List: Activity Tolerance, Functional Strength, Safety, Balance, Gait, Transfer, Bed Mobility, ROM Treatment/Plan Treatment Plan: Continue Plan of Care Treatment Plan: Bed Mobility, Education, Functional Activity Teddy, Functional Strength, Group Therapy, Gait, Safety, Therapeutic Exercise, Transfers Treatment Duration: Jul 03, 2022 Frequency: Estimated Hrs Per Day: Other Patient and/or Family Agrees t: Yes Safety Risks/Education Patient Education: Instructions to Caregiver Teaching Recipient: Patient, Family Teaching Methods: Demonstration, Discussion Education on (L) LE ex with patient and son, including LTR for back pain relief. Time Time In: 1400 Time Out: 1430 DATE: Jul 05, 2022 Total Billed Treatment Time: 30 Total Billed Treatment 2 ex = 30' Helga Brand PT Jul 05, 2022 20:40
[2022-07-06] MEDS: METHOCARBAMOL 500 MG (ROBAXIN) TABLET PO PRN ×3 (00:28→13:06)
[2022-07-06] MEDS: MULTIVIT W/MINERALS TAB (THERAGRAN M) PO SCH (06:42)
[2022-07-06] MEDS: THIAMINE 100 MG (VITAMIN B-1) TAB PO SCH (06:42)
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
[2022-07-06] MEDS: inSUlin ASPART (NovoLOG) 1 UNIT/0.01 ML (CHARGE PER UNIT) SC SCH ×7 (07:03→21:24)
[2022-07-06 08:00] VITALS: BP 120/71
[2022-07-06] MEDS: ASPIRIN 81 MG CHEW (CHILDREN'S ASA) PO SCH (08:14)
[2022-07-06] MEDS: CEPHALEXIN 250 MG (KEFLEX) CAP PO SCH ×4 (08:14→22:02)
[2022-07-06] MEDS: GABAPENTIN 300 MG (NEURONTIN) CAP PO SCH ×2 (08:14→15:11)
[2022-07-06] MEDS: TAMSULOSIN 0.4 MG (FLOMAX) CAP PO SCH (08:15)
[2022-07-06] MEDS: FOLIC ACID 1 MG TAB PO SCH (08:15)
[2022-07-06] MEDS: DOCUSATE SODIUM 100 MG (COLACE) CAP PO SCH ×2 (08:16→22:03)
[2022-07-06] MEDS: BISACODYL 10 MG SUPP (DULCOLAX) RC SCH (08:18)
[2022-07-06] MEDS: SENNA W/DOCUSATE (SENOKOT S) TABLET PO SCH ×2 (08:18→22:02)
[2022-07-06] MEDS: polyethylene glycoL POWDER 17 GM (MIRALAX) PACK PO SCH ×2 (08:18→22:00)
--- NOTE | 2022-07-06 12:50 | Occupational Ther Daily Note ---
OT Current Status-Daily Note Subjective Pt in bed, agreeable to OT tx. Pt has unrated pain in neck. Pt required encouragement to participate as he states he is too tired to do therapy today. ADL-Treatment Therapy Code Descriptions/Definitions Functional [place] Measure: 0=Not Assessed/NA 4=Minimal Assistance 1=Total Assistance 5=Supervision or Setup 2=Maximal Assistance 6=Modified [place] 3=Moderate Assistance 7=Complete IndependenceSCALE: Activities may be completed with or without assistive devices. 4-Oftdpomnxm-urbthou completes the activity by him/herself with no assistance from a helper. 5-Set-up or Clean-up Assistance-helper sets up or cleans up; patient completes activity. [place] assists only prior to or following the activity. 4-Supervision or Touching Assistance-helper provides verbal cues and/or touching/steadying and/or contact guard assistance as patient completes activity. Assistance may be provided throughout the activity or intermittently. 3-Partial/Moderate Assistance-helper does LESS THAN HALF the effort. [place] lifts, holds or supports trunk or limbs, but provides less than half the effort. 2-Substantial/Maximal Assistance-helper does MORE THAN HALF the effort. [place] lifts or holds trunk or limbs and provides more than half the effort. 2-Fmvcwicxz-wbkpgv does ALL the effort. Patient does none of the effort to complete the activity. Or, the assistance of 2 or more helpers is required for the patient to complete the activity. If activity was not attempted, code reason: 7-Patient Refused. 9-Not Applicable-not attempted and the patient did not perform the activity before the current illness, exacerbation or injury. 10-Not Attempted due to Environmental Limitations-(lack of equipment, weather restraints, etc.). 88-Not Attempted due to Medical Conditions or Safety Concerns. Shower/Bathe Self (QC): 3 (Mod A 100% seated on SC with cut out. Pt required assistance washing buttocks, BLEs lower legs/feet. Assistance drying shoulders) Upper Body Dressing (QC): 3 (Mod A don/doff) Lower Body Dressing (QC): 1 (assist x1, assist all parts.) On/Off Footwear: 1 Pt required encouragement to attempt aspects of ADLs himself prior to having assistance from OT. Other Treatment [id number]: Pt in bed, transferred supine to sit EOB, max A. Pt stood from EOB, min A, then transferred to SC. Clothing doffed, pt wheeled into shower. Pt completed shower, dried off, then donned clothes. OT provided pt with long handled sponge with built up handle. Pt able to complete dressing with assist x1, but encouragement required to attempt tasks himself. Max A to stand from SC, then min A using FWW to transfer to w/c. [id number]: OT/PT cotreat due to skill of 2 clinicians required which a vocational rehabilitation consultant could not perform in order to coordinate UE/LEs, decrease fall risk, and due to pt's limitations in strength, activity tolerance, mobility/transfers. OT focused on ADLs, UE placement, cues for sequencing and safety. PT focused on LE placement, gross overall movement, transfers and mobility. Pt performed w/c mobility, pt demonstrated difficulty with advancing LLE. Slicker tape placed on dorsal aspect of pt's L foot to decrease friction as it attempts to slide against the floor. Pt performed functional mobility with FWW, w/c follow, even with tape, pt had difficulty advancing L foot. Theraband placed on LLE for assistance lifting his toes off of floor and R shoe placed to give pt a slight height difference between legs. Pt then demonstrated ability to advance LLE easier. With transfers, pt required skilled VCS for UE placement with stand and stand to sits. Pt taken back to room, transferring from w/c to EOB and supine. Please refer to PT note for QC scores associated with mobility/transfers during cotreatment. Post tx, pt in bed, call light in reach and all needs met. Education OT Patient Education: Correct positioning, Energy conservation, Modified ADL techniques, Progress toward Goal/Update tx plan, Purpose of tx/functional activities, Rehab process Teaching Recipient: Patient Teaching Methods: Discussion Response to Teaching: Verbalize Understanding OT Short Term Goals Short Term Goals Time Frame: Jul 20, 2022 Upper body dressin Lower body dressin Putting on/taking off footwear: 2 OT Boat[employer] [place] Goals Usp Goals Time Frame: Aug 02, 2022 Acute change in mental status: 1 Inattention: 1 Disorganized thinkin Altered level of consciousness: 1 Eating (QC): 5 Oral Hygiene (QC): 5 Toileting Hygiene (QC): 4 Shower/Bathe Self (QC): 4 Upper Body Dressing (QC): 4 Lower Body Dressing (QC): 3 On/Off Footwear (QC): 3 Additional Goals: 1-Demonstrate ADL Tasks, 2-Verbalize Understanding, 3- ImproveStrength/[place] 1=Demonstrate adherence to instructed precautions during ADL tasks. 2=Patient will verbalize/demonstrate understanding of assistive devices/modifications for ADL. 3=Patient will improve strength/tolerance for activity to enable patient to perform ADL's. OT Education/Plan Problem List/Assessment Assessment: Decreased Activ Tolerance, Decreased UE Strength, Impaired Funct Balance, Impaired I ADL's, Impaired Self-Care Skills Discharge Recommendations Plan/Recommendations: Continue POC Treatment Plan/Plan of Care Patient would benefit from OT for education, treatment and training to promote independence in ADL's, mobility, safety and/or upper extremity function for ADL's. Plan of Care: ADL Retraining, Caregiver Training Treatment Duration: Jul 03, 2022 Frequency: Modified Program (IRF) Estimated Hrs Per Day: Other Rehab Potential: Guarded Time Start Time: 10:30 Stop Time: 12:00 DATE: Jul 06, 2022 Total Time Billed (hr/min): 90 Billed Treatment Time OT tx [id number] (45'), Cotreat [id number] (45') 1, ADL 4 (60'), FA 2 (30') JUAN C LIM OT Jul 06, 2022 12:50
--- NOTE | 2022-07-06 15:25 | Physical Therapy Daily Note ---
PT Daily Note-Current Subjective Pt found laying in bed upon entry. Agreed to PT. States that he is having a lot of pain in his neck and back. He states "it feels like you are ripping me apart" during supine exercises. Does not rate pain. Pain Section J - Health Conditions 1. Rarely or not at all 2. Occasionally 3. Frequently 4. Almost constantly 8. Unable to answer Pain Effect on Sleep: 4 Pain Interference with Therapy: 4 Pain Interference w/Day-to-Day: 4 Transfers SCALE: Activities may be completed with or without assistive devices. 0-Azsuwqwhpq-udhuuzp completes the activity by him/herself with no assistance from a helper. 5-Set-up or Clean-up Assistance-helper sets up or cleans up; patient completes activity. [place] assists only prior to or following the activity. 4-Supervision or Touching Assistance-helper provides verbal cues and/or touching/steadying and/or contact guard assistance as patient completes activity. Assistance may be provided throughout the activity or intermittently. 3-Partial/Moderate Assistance-helper does LESS THAN HALF the effort. [place] lifts, holds or supports trunk or limbs, but provides less than half the effort. 2-Substantial/Maximal Assistance-helper does MORE THAN HALF the effort. [place] l ifts or holds trunk or limbs and provides more than half the effort. 9-Lnspwmtnf-lklwhx does ALL the effort. Patient does none of the effort to complete the activity. Or, the assistance of 2 or more helpers is required for the patient to complete the activity. If activity was not attempted, code reason: 7-Patient Refused. 9-Not Applicable-not attempted and the patient did not perform the activity before the current illness, exacerbation or injury. 10-Not Attempted due to Environmental Limitations-(lack of equipment, weather restraints, etc.). 88-Not Attempted due to Medical Conditions or Safety Concerns. Treatments Supine exercises AAROM on L only: SLR, heel slides, hamstring sets, quad sets, glute sets, SAQs, trunk rolls x 10 each Assessment Current Status: Poor Progress Pt demonstrates limited movement in LLE and requires assistance with all therapeutic exercises. Displays increased pain with therapeutic exercises. Has most difficulty completing SLR on LLE. Continue to progress pt as tolerated per POC to increase strength, endurance, functional ability, and decrease pain. PT Train [place] Goals Correction Goals PT Train [place] Goals Time Frame: Jul 17, 2022 Roll Left & Right (QC): 4 Sit to Lying (QC): 4 Lying-Sitting on Side/Bed(QC): 4 Sit to Stand (QC): 4 Chair/Uwr-wi-Hgynl Xfer(QC): 4 Toilet Transfer (QC): 4 Car Transfer (QC): 4 Does the Patient Walk: No and Walking Goal IS indicated Walk 10 feet (QC): 4 Walk 50ft with 2 Turns (QC): 4 Walk 150 ft (QC): 4 Walking 10ft on Uneven Surface: 4 1 Step (curb) (QC): 4 4 Steps (QC): 4 12 Steps (QC): 88 Picking up an Object (QC): 4 (using title search manager) Wheel 50 feet with 2 turns (QC: 9 Wheel 150 feet: 9 PT Plan Treatment/Plan Treatment Plan: Continue Plan of Care Treatment Plan: Bed Mobility, Education, Functional Activity Teddy, Functional Strength, Group Therapy, Gait, Safety, Therapeutic Exercise, Transfers Treatment Duration: Jul 03, 2022 Frequency: Estimated Hrs Per Day: Other Patient and/or Family Agrees t: Yes Time Time In: 1400 Time Out: 1430 DATE: Jul 06, 2022 Total Billed Treatment Time: 30 Total Billed Treatment 1 visit EX 2x MANUEL KRISHNAN SOFTWARE SALES CONSULTANT Jul 06, 2022 15:25
--- NOTE | 2022-07-06 15:25 | Physical Therapy Daily Note ---
PT Daily Note-Current Subjective Rates pain as "terrible" this a.m. Has just completed shower with OT. Agreeable to wearing TENS unit at upper traps/upper back IFC level 3.5 for activity in attempt to reduce pain. Agreeable to wearing soft cervical collar during treatment. Frustrated that he is so tired - does not understand why all he wants to do is sleep. Pain Section J - Health Conditions 1. Rarely or not at all 2. Occasionally 3. Frequently 4. Almost constantly 8. Unable to answer Pain Effect on Sleep: 4 Pain Interference with Therapy: 4 Pain Interference w/Day-to-Day: 4 Mental Status Patient Orientation: Person, Place Patient is frustrated that (L) LE does not advance as easily as (R), however is appreciative of staff attempts for rehab. Transfers SCALE: Activities may be completed with or without assistive devices. 0-Fhgdypvfkz-dgtmfff completes the activity by him/herself with no assistance from a helper. 5-Set-up or Clean-up Assistance-helper sets up or cleans up; patient completes activity. [place] assists only prior to or following the activity. 4-Supervision or Touching Assistance-helper provides verbal cues and/or touching/steadying and/or contact guard assistance as patient completes activity. Assistance may be provided throughout the activity or intermittently. 3-Partial/Moderate Assistance-helper does LESS THAN HALF the effort. [place] lifts, holds or supports trunk or limbs, but provides less than half the effort. 2-Substantial/Maximal Assistance-helper does MORE THAN HALF the effort. [place] lifts or holds trunk or limbs and provides more than half the effort. 9-Shizeltyr-ffdwci does ALL the effort. Patient does none of the effort to complete the activity. Or, the assistance of 2 or more helpers is required for the patient to complete the activity. If activity was not attempted, code reason: 7-Patient Refused. 9-Not Applicable-not attempted and the patient did not perform the activity before the current illness, exacerbation or injury. 10-Not Attempted due to Environmental Limitations-(lack of equipment, weather restraints, etc.). 88-Not Attempted due to Medical Conditions or Safety Concerns. Lying to Sitting/Side of Bed(Q: 3 (mod (A) lifting LE's onto bed) Sit to Stand (QC): 3 (Mod (A) x 6 attempts to RW this a.m. - states it is due to pain and feeling tired. However, does demonstrate improved (R) hand placement prior to standing.) Chair/Spa-fc-Nilqk Xfer(QC): 3 (Min (A) with RW with cues to completely turn and back up to seat surface prior to sitting. Min-mod (A) to control descent.) Weight Bearing Soft cervical collar used during treatment session to help alleviate neck pain for first 45 minutes. Removed last 15 minutes per patient request. Gait Training Does the Patient Walk?: Yes Walk 10 feet (QC): 3 (Min (A) of 1-2 with w/c follow-up to walk 12' x 3 with RW. Shoe placed on (R) LE to help advance (L) with improved stepping (L). Tape placed on bottom of (L) foot and theraband "AFO" used for (L) foot clearance with improved stepping noted. Consider (L) AFO next week) Wheelchair Training Does the Pt Use a Wheelchair?: Yes patient able to use (B) UE's to propel chair 25' and "walk" (B) feet forward without assist nor cues. Exercises HEP created and placed in room for weekend/downtime completion with son's assist: LTR, hooklying hip ER/IR, Hooklying march, seated march, seated LAQ, seated heel/toe lifts. Treatments Estim turned up to level 4 per patient request at completion of treatment -- patient in supine resting and son present to monitor TENS use. Patient resting comfortably when PT exited room. Assessment Current Status: Fair Progress Increased difficulty with sit<>stand and transfers today compared to 07/05/22. Pain and decreased activity tolerance are main limitation PT Oracle Database Manager Goals Oracle Database Manager Goals PT Oracle Database Manager Goals Time Frame: Jul 17, 2022 Roll Left & Right (QC): 4 Sit to Lying (QC): 4 Lying-Sitting on Side/Bed(QC): 4 Sit to Stand (QC): 4 Chair/Wsu-vr-Pvstu Xfer(QC): 4 Toilet Transfer (QC): 4 Car Transfer (QC): 4 Does the Patient Walk: No and Walking Goal IS indicated Walk 10 feet (QC): 4 Walk 50ft with 2 Turns (QC): 4 Walk 150 ft (QC): 4 Walking 10ft on Uneven Surface: 4 1 Step (curb) (QC): 4 4 Steps (QC): 4 12 Steps (QC): 88 Picking up an Object (QC): 4 (using 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) Wheel 50 feet with 2 turns (QC: 9 Wheel 150 feet: 9 PT Plan Treatment/Plan Treatment Plan: Continue Plan of Care Treatment Plan: Bed Mobility, Education, Functional Activity Teddy, Functional Strength, Group Therapy, Gait, Safety, Therapeutic Exercise, Transfers Treatment Duration: Jul 03, 2022 Frequency: Estimated Hrs Per Day: Other Patient and/or Family Agrees t: Yes Time Time In: 1115 Time Out: 1215 DATE: Jul 06, 2022 Total Billed Treatment Time: 60 Total Billed Treatment 15- ther ex individual, 45 minutes co-treat 2 gait, 1 FA -- co-treatment indicated due to patient's acuity level, activity tolerance/balance/gait limitations that requires 2 skilled therapist's for patient safety. Helga Brand PT Jul 06, 2022 15:25
[2022-07-06] MEDS ORDERED: INSU100V5 SC (15:39)
[2022-07-06] MEDS ORDERED: INSU100V16 SC (15:39)
[2022-07-06] MEDS: traZODone 50 MG (DESYREL) TAB PO SCH (17:35)
[2022-07-06 19:57] VITALS: BP 126/78
[2022-07-06] MEDS: AtorvaSTATin TABLET 10 MG TABLET PO SCH (22:02)
[2022-07-07] MEDS: GABAPENTIN 300 MG (NEURONTIN) CAP PO SCH ×3 (00:08→16:35)
[2022-07-07] MEDS: METHOCARBAMOL 500 MG (ROBAXIN) TABLET PO PRN ×4 (01:21→22:15)
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
[2022-07-07] MEDS: inSUlin ASPART (NovoLOG) 1 UNIT/0.01 ML (CHARGE PER UNIT) SC SCH ×7 (05:59→22:16)
[2022-07-07] MEDS: THIAMINE 100 MG (VITAMIN B-1) TAB PO SCH (06:28)
[2022-07-07] MEDS: MULTIVIT W/MINERALS TAB (THERAGRAN M) PO SCH (06:28)
[2022-07-07 07:30] VITALS: BP 108/67
[2022-07-07] MEDS: ASPIRIN 81 MG CHEW (CHILDREN'S ASA) PO SCH (08:46)
[2022-07-07] MEDS: TAMSULOSIN 0.4 MG (FLOMAX) CAP PO SCH (08:46)
[2022-07-07] MEDS: polyethylene glycoL POWDER 17 GM (MIRALAX) PACK PO SCH ×2 (08:46→21:00)
[2022-07-07] MEDS: SENNA W/DOCUSATE (SENOKOT S) TABLET PO SCH ×2 (08:46→21:00)
[2022-07-07] MEDS: DOCUSATE SODIUM 100 MG (COLACE) CAP PO SCH ×2 (08:47→21:00)
[2022-07-07] MEDS: FOLIC ACID 1 MG TAB PO SCH (08:47)
[2022-07-07] MEDS: BISACODYL 10 MG SUPP (DULCOLAX) RC SCH (08:49)
[2022-07-07] MEDS: CEPHALEXIN 250 MG (KEFLEX) CAP PO SCH ×4 (08:58→22:16)
[2022-07-07] MEDS: ACETAMINOPHEN 500 MG TAB (TYLENOL) PO PRN (12:10)
--- NOTE | 2022-07-07 13:24 | Physical Therapy Daily Note ---
PT Daily Note-Current Subjective Patient lying supine in bed upon PT arrival, agreeable to treatment. Patient reports he doesn't like the recliner but he will sit in the w/c and finish eating. Pain Section J - Health Conditions 1. Rarely or not at all 2. Occasionally 3. Frequently 4. Almost constantly 8. Unable to answer Pain Effect on Sleep: 4 Pain Interference with Therapy: 4 Pain Interference w/Day-to-Day: 4 Transfers SCALE: Activities may be completed with or without assistive devices. 2-Xxfcbdhlyb-pcxuvmw completes the activity by him/herself with no assistance from a helper. 5-Set-up or Clean-up Assistance-helper sets up or cleans up; patient completes activity. [place] assists only prior to or following the activity. 4-Supervision or Touching Assistance-helper provides verbal cues and/or touching/steadying and/or contact guard assistance as patient completes activity. Assistance may be provided throughout the activity or intermittently. 3-Partial/Moderate Assistance-helper does LESS THAN HALF the effort. [place] lifts, holds or supports trunk or limbs, but provides less than half the effort. 2-Substantial/Maximal Assistance-helper does MORE THAN HALF the effort. [place] lifts or holds trunk or limbs and provides more than half the effort. 4-Lqpomyutv-jukeor does ALL the effort. Patient does none of the effort to complete the activity. Or, the assistance of 2 or more helpers is required for the patient to complete the activity. If activity was not attempted, code reason: 7-Patient Refused. 9-Not Applicable-not attempted and the patient did not perform the activity before the current illness, exacerbation or injury. 10-Not Attempted due to Environmental Limitations-(lack of equipment, weather restraints, etc.). 88-Not Attempted due to Medical Conditions or Safety Concerns. Roll Left & Right (QC): 3 Sit to Lying (QC): 3 Lying to Sitting/Side of Bed(Q: 3 Sit to Stand (QC): 3 Gait Training Does the Patient Walk?: Yes Distance: 35 feet Walk 10 feet (QC): 3 Gait Assistive Device: FWW Assessment Current Status: Fair Progress Patient performs all bed mobility and transfers with min/mod A. Patient ambulates 35 feet with mod A with FWW and verbal cues for safety, progression, and to progress left LE. Patient requires PT to physically progress the left LE forwards towards the end of the gait cycle. Patient in w/c post treatment with all needs met, nursing notified, family in the room and call light in hand. PT Log Stacker Operator Goals Skilled Nursing Goals PT Skilled Nursing Goals Time Frame: Jul 17, 2022 Roll Left & Right (QC): 4 Sit to Lying (QC): 4 Lying-Sitting on Side/Bed(QC): 4 Sit to Stand (QC): 4 Chair/Zid-lb-Xgfri Xfer(QC): 4 Toilet Transfer (QC): 4 Car Transfer (QC): 4 Does the Patient Walk: No and Walking Goal IS indicated Walk 10 feet (QC): 4 Walk 50ft with 2 Turns (QC): 4 Walk 150 ft (QC): 4 Walking 10ft on Uneven Surface: 4 1 Step (curb) (QC): 4 4 Steps (QC): 4 12 Steps (QC): 88 Picking up an Object (QC): 4 (using branch lending manager) Wheel 50 feet with 2 turns (QC: 9 Wheel 150 feet: 9 PT Plan Treatment/Plan Treatment Plan: Continue Plan of Care Treatment Plan: Bed Mobility, Education, Functional Activity Teddy, Functional Strength, Group Therapy, Gait, Safety, Therapeutic Exercise, Transfers Treatment Duration: Jul 03, 2022 Frequency: Estimated Hrs Per Day: Other Patient and/or Family Agrees t: Yes Safety Risks/Education Patient Education: Gait Training, Transfer Techniques Teaching Recipient: Patient, Family Teaching Methods: Demonstration, Discussion Response to Teaching: Reinforcement Needed Time Time In: 1308 Time Out: 1319 DATE: Jul 07, 2022 Total Billed Treatment Time: 11 Total Billed Treatment Visit, Gait SPEEDY VASQUEZ PT Jul 07, 2022 13:24
[2022-07-07 20:29] VITALS: BP 109/68
[2022-07-07] MEDS: traZODone 50 MG (DESYREL) TAB PO SCH (21:00)
[2022-07-07] MEDS: AtorvaSTATin TABLET 10 MG TABLET PO SCH (22:15)
[2022-07-08] MEDS: GABAPENTIN 300 MG (NEURONTIN) CAP PO SCH ×3 (00:29→15:18)
[2022-07-08] MEDS: inSUlin ASPART (NovoLOG) 1 UNIT/0.01 ML (CHARGE PER UNIT) SC SCH ×8 (05:09→21:35)
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
[2022-07-08] MEDS: MULTIVIT W/MINERALS TAB (THERAGRAN M) PO SCH (06:45)
[2022-07-08] MEDS: THIAMINE 100 MG (VITAMIN B-1) TAB PO SCH (06:45)
[2022-07-08 07:30] VITALS: BP 100/62
[2022-07-08] MEDS: FOLIC ACID 1 MG TAB PO SCH (09:57)
[2022-07-08] MEDS: DOCUSATE SODIUM 100 MG (COLACE) CAP PO SCH ×2 (09:57→21:29)
[2022-07-08] MEDS: TAMSULOSIN 0.4 MG (FLOMAX) CAP PO SCH (09:57)
[2022-07-08] MEDS: SENNA W/DOCUSATE (SENOKOT S) TABLET PO SCH ×2 (09:57→21:35)
[2022-07-08] MEDS: CEPHALEXIN 250 MG (KEFLEX) CAP PO SCH ×4 (09:57→21:37)
[2022-07-08] MEDS: ASPIRIN 81 MG CHEW (CHILDREN'S ASA) PO SCH (09:57)
[2022-07-08] MEDS: METHOCARBAMOL 500 MG (ROBAXIN) TABLET PO PRN ×2 (10:13→18:15)
[2022-07-08] MEDS: BISACODYL 10 MG SUPP (DULCOLAX) RC SCH (15:16)
[2022-07-08] MEDS: polyethylene glycoL POWDER 17 GM (MIRALAX) PACK PO SCH ×2 (15:17→21:35)
[2022-07-08 20:32] VITALS: BP 103/63
[2022-07-08] MEDS: traZODone 50 MG (DESYREL) TAB PO SCH (21:35)
[2022-07-08] MEDS: AtorvaSTATin TABLET 10 MG TABLET PO SCH (21:38)
[2022-07-09] MEDS: METHOCARBAMOL 500 MG (ROBAXIN) TABLET PO PRN ×4 (00:10→19:06)
[2022-07-09] MEDS: GABAPENTIN 300 MG (NEURONTIN) CAP PO SCH ×4 (00:10→22:37)
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
[2022-07-09 05:47] LABS: BASOPHILS # (AUTO) 0.1 10^3/uL (0.0-0.1); BASOPHILS % (AUTO) 1 % (0-10); EOSINOPHILS # (AUTO) 0.1 10^3/uL (0.0-0.3); EOSINOPHILS % (AUTO) 1 % (0-10); HEMATOCRIT 34 % (40-54); LYMPHOCYTES # (AUTO) 2.1 10^3/uL (1.0-4.0); LYMPHOCYTES % (AUTO) 21 % (12-44); MEAN CORPUSCULAR HEMOGLOBIN 30 pg (25-34); MEAN CORPUSCULAR HGB CONC 33 g/dL (32-36); MEAN CORPUSCULAR VOLUME 92 fL (80-99); MEAN PLATELET VOLUME 8.8 fL (9.0-12.2); MONOCYTES # (AUTO) 0.6 10^3/uL (0.0-1.0); MONOCYTES % (AUTO) 7 % (0-12); NEUTROPHILS # (AUTO) 6.6 10^3/uL (1.8-7.8); NEUTROPHILS % (AUTO) 69 % (42-75); PLATELET COUNT 517 10^3/uL (130-400); WHITE BLOOD COUNT 9.6 10^3/uL (4.3-11.0)
[2022-07-09 05:59] LABS: ALBUMIN 3.2 GM/DL (3.2-4.5)
[2022-07-09 06:00] LABS: POTASSIUM 4.1 MMOL/L (3.6-5.0)
[2022-07-09 06:01] LABS: CALCIUM 8.8 MG/DL (8.5-10.1)
[2022-07-09 06:02] LABS: TOTAL PROTEIN 6.6 GM/DL (6.4-8.2)
[2022-07-09 06:04] LABS: BILIRUBIN,TOTAL 0.2 MG/DL (0.1-1.0)
[2022-07-09 06:06] LABS: CREATININE SERUM 0.67 MG/DL (0.60-1.30)
[2022-07-09] MEDS: inSUlin ASPART (NovoLOG) 1 UNIT/0.01 ML (CHARGE PER UNIT) SC SCH ×7 (06:19→21:10)
[2022-07-09] MEDS: THIAMINE 100 MG (VITAMIN B-1) TAB PO SCH (06:26)
[2022-07-09] MEDS: MULTIVIT W/MINERALS TAB (THERAGRAN M) PO SCH (06:26)
[2022-07-09] MEDS: FOLIC ACID 1 MG TAB PO SCH (07:49)
[2022-07-09] MEDS: DOCUSATE SODIUM 100 MG (COLACE) CAP PO SCH ×2 (07:49→21:09)
[2022-07-09] MEDS: ASPIRIN 81 MG CHEW (CHILDREN'S ASA) PO SCH (07:49)
[2022-07-09] MEDS: SENNA W/DOCUSATE (SENOKOT S) TABLET PO SCH ×2 (07:49→21:09)
[2022-07-09] MEDS: TAMSULOSIN 0.4 MG (FLOMAX) CAP PO SCH (07:49)
[2022-07-09] MEDS: CEPHALEXIN 250 MG (KEFLEX) CAP PO SCH ×4 (07:50→21:09)
[2022-07-09 08:00] VITALS: BP 108/63
[2022-07-09] MEDS: polyethylene glycoL POWDER 17 GM (MIRALAX) PACK PO SCH ×2 (08:56→21:09)
[2022-07-09] MEDS: BISACODYL 10 MG SUPP (DULCOLAX) RC SCH (08:56)
--- NOTE | 2022-07-09 09:41 | Occupational Ther Daily Note ---
OT Current Status-Daily Note Subjective Pt in bed, agreeable to OT Tx. Pt insists he is unable to put on overhead t- shirts, as he wasn't able to prior to his surgery. OT encouraged pt to have his son bring in his snap up shirts instead. Mental Status/Objective Patient Orientation: Person, Place, Situation ADL-Treatment Therapy Code Descriptions/Definitions Functional [place] Measure: 0=Not Assessed/NA 4=Minimal Assistance 1=Total Assistance 5=Supervision or Setup 2=Maximal Assistance 6=Modified [place] 3=Moderate Assistance 7=Complete IndependenceSCALE: Activities may be completed with or without assistive devices. 9-Bznjamdgyy-syyqqfx completes the activity by him/herself with no assistance from a helper. 5-Set-up or Clean-up Assistance-helper sets up or cleans up; patient completes activity. [place] assists only prior to or following the activity. 4-Supervision or Touching Assistance-helper provides verbal cues and/or touching/steadying and/or contact guard assistance as patient completes activity. Assistance may be provided throughout the activity or intermittently. 3-Partial/Moderate Assistance-helper does LESS THAN HALF the effort. [place] lifts, holds or supports trunk or limbs, but provides less than half the effort. 2-Substantial/Maximal Assistance-helper does MORE THAN HALF the effort. [place] lifts or holds trunk or limbs and provides more than half the effort. 5-Eitjkjkpg-jwmgvg does ALL the effort. Patient does none of the effort to complete the activity. Or, the assistance of 2 or more helpers is required for the patient to complete the activity. If activity was not attempted, code reason: 7-Patient Refused. 9-Not Applicable-not attempted and the patient did not perform the activity before the current illness, exacerbation or injury. 10-Not Attempted due to Environmental Limitations-(lack of equipment, weather restraints, etc.). 88-Not Attempted due to Medical Conditions or Safety Concerns. Oral Hygiene (QC): 6 (seated) Bathing Location: L Arm, R Arm, L Upper Leg, R Upper Leg, Chest, Abdomen, Perineal Area Shower/Bathe Self (QC): 3 (assistance with BLEs lower legs/feet and buttocks.) Upper Body Dressing (QC): 3 (Mod A overall with conductor pullman shirt.) Lower Body Dressing (QC): 2 (Pt able to manage pants down from hips. Assist with doffing/donning over feet, and assist with pant hike.) On/Off Footwear: 1 Other Treatment Pt in bed, transferred supine to sit EOB, assist LLE and trunk. Pt stood from elevated bed, min A, then transferred to MI with cutout. Prior to sitting, pt able to manage pants down from his hips. Pt taken into bathroom, completed shaving and oral care seated at sink independently. Pt then wheeled into shower. Pt completed shower, then dressing. Mod A sit to stand from MI. Pt used FWW to perform functional mobility from MI to EOB, ~ 8 feet. Pt transferred supine, max A (BLEs). Post tx, pt in bed, call light in reach and all needs met. Education OT Patient Education: Correct positioning, Energy conservation, Modified ADL techniques, Progress toward Goal/Update tx plan, Purpose of tx/functional activities, Rehab process Teaching Recipient: Patient Teaching Methods: Discussion Response to Teaching: Verbalize Understanding OT Short Term Goals Short Term Goals Time Frame: Jul 20, 2022 Upper body dressin Lower body dressin Putting on/taking off footwear: 2 OT Business Education Professor Goals Group Home Goals Time Frame: Aug 02, 2022 Acute change in mental status: 1 Inattention: 1 Disorganized thinkin Altered level of consciousness: 1 Eating (QC): 5 Oral Hygiene (QC): 5 Toileting Hygiene (QC): 4 Shower/Bathe Self (QC): 4 Upper Body Dressing (QC): 4 Lower Body Dressing (QC): 3 On/Off Footwear (QC): 3 Additional Goals: 1-Demonstrate ADL Tasks, 2-Verbalize Understanding, 3- ImproveStrength/Teddy 1=Demonstrate adherence to instructed precautions during ADL tasks. 2=Patient will verbalize/demonstrate understanding of assistive devices/modifications for ADL. 3=Patient will improve strength/tolerance for activity to enable patient to perform ADL's. OT Education/Plan Problem List/Assessment Assessment: Decreased Activ Tolerance, Decreased UE Strength, Impaired Funct Balance, Impaired I ADL's, Impaired Self-Care Skills, Restricted Funct UE ROM Discharge Recommendations Plan/Recommendations: Continue POC Treatment Plan/Plan of Care Patient would benefit from OT for education, treatment and training to promote independence in ADL's, mobility, safety and/or upper extremity function for ADL's. Plan of Care: ADL Retraining, Caregiver Training Treatment Duration: Jul 03, 2022 Frequency: Modified Program (IRF) Estimated Hrs Per Day: Other Rehab Potential: Guarded Time Start Time: 08:45 Stop Time: 09:45 DATE: Jul 09, 2022 Total Time Billed (hr/min): 60 Billed Treatment Time 1, ADL 4 JUAN C LIM OT Jul 09, 2022 09:41
--- NOTE | 2022-07-09 12:12 | Physical Therapy Daily Note ---
PT Daily Note-Current Subjective Patient sleeping soundly when P.T. entered room - states he doesn't understand why he is so sleepy. Pain Location Body Site: Back Comment: Rates pain as 8-9/10 in neck and back. Cannot tell if TENS is beneficial. Section J - Health Conditions 1. Rarely or not at all 2. Occasionally 3. Frequently 4. Almost constantly 8. Unable to answer Pain Effect on Sleep: 4 Pain Interference with Therapy: 4 Pain Interference w/Day-to-Day: 4 Transfers SCALE: Activities may be completed with or without assistive devices. 4-Tsvbjoxnqy-aezgqfv completes the activity by him/herself with no assistance from a helper. 5-Set-up or Clean-up Assistance-helper sets up or cleans up; patient completes activity. [place] assists only prior to or following the activity. 4-Supervision or Touching Assistance-helper provides verbal cues and/or touching/steadying and/or contact guard assistance as patient completes activity. Assistance may be provided throughout the activity or intermittently. 3-Partial/Moderate Assistance-helper does LESS THAN HALF the effort. [place] lifts, holds or supports trunk or limbs, but provides less than half the effort. 2-Substantial/Maximal Assistance-helper does MORE THAN HALF the effort. [place] lifts or holds trunk or limbs and provides more than half the effort. 5-Jcuoprxpg-pqbdof does ALL the effort. Patient does none of the effort to complete the activity. Or, the assistance of 2 or more helpers is required for the patient to complete the activity. If activity was not attempted, code reason: 7-Patient Refused. 9-Not Applicable-not attempted and the patient did not perform the activity before the current illness, exacerbation or injury. 10-Not Attempted due to Environmental Limitations-(lack of equipment, weather restraints, etc.). 88-Not Attempted due to Medical Conditions or Safety Concerns. Lying to Sitting/Side of Bed(Q: 3 (Patient able to bring legs off edge of bed, bur required min-mod (A) to lift trunk to upright position.) Sit to Stand (QC): 3 (min-Mod (A) of 1 x 5 attempts, even from elevated lift chair x 1) Chair/Mgm-ii-Ektfq Xfer(QC): 3 (Min (A) with FWW with AFO (L) LE with slightly improved foot clearance, (B) shoes.) Gait Training Does the Patient Walk?: Yes Distance: 15' x 1, 10' x 2 Walk 10 feet (QC): 3 (min (A) with FWW and (L) AFO with mildly improved (L) foot clearance -- hip weakness impairs gait more than (L) drop foot.) Gait Persons Needed: 1 Gait Assistive Device: FWW Wheelchair Training Does the Pt Use a Wheelchair?: Yes patient able to propel self completely back into room (25') by propelling backward with (B) feet. Exercises (B) LE exercise in supine: (R) ankle pumps x 20, (R) hip ER/IR with leg extended x 15, (R) AAROM heel sl ides x 10, (R) SAQ x 15 AROM (L) ankle pumps x 15, (L) hip ER/IR with leg extended x 15, (L) AAROM heel slides x 15, (L) SAQ x 15 with vibration(using massager) on quad to stim quad contraction -- able to lift heel off mattress with vibration. Assisted (L) LE to hooklying position, then patient able to perform: Hooklying LTR x 15 Hooklying clamshells x 15 Bridge contractions x 5 with therapist holding (B) feet. LTR x 10 more AROM. Treatments [place] (L) AFO placed on patient for gait training this a.m. Will perform skin checks this afternoon following further gait training. Assessment Transfers remain min-mod (A) for sit>stand and min (A) once upright to stand/pivot using FWW. Hip flexion weakness appears to be limiting swing thru phase (L) more than foot drop during gait this a.m. Patient still c/o severe fatique and high neck/back pain levels. Performance no different today without TENS that last week with TENS in place. PT Jail Goals Biomedical Photographer Goals PT Jail Goals Time Frame: Jul 17, 2022 Roll Left & Right (QC): 4 Sit to Lying (QC): 4 Lying-Sitting on Side/Bed(QC): 4 Sit to Stand (QC): 4 Chair/Tnw-ee-Zeyof Xfer(QC): 4 Toilet Transfer (QC): 4 Car Transfer (QC): 4 Does the Patient Walk: No and Walking Goal IS indicated Walk 10 feet (QC): 4 Walk 50ft with 2 Turns (QC): 4 Walk 150 ft (QC): 4 Walking 10ft on Uneven Surface: 4 1 Step (curb) (QC): 4 4 Steps (QC): 4 12 Steps (QC): 88 Picking up an Object (QC): 4 (using applications support specialist) Wheel 50 feet with 2 turns (QC: 9 Wheel 150 feet: 9 PT Plan Problem List Problem List: Activity Tolerance, Functional Strength, Safety, Balance, Gait, Transfer, Bed Mobility Treatment/Plan Treatment Plan: Continue Plan of Care Treatment Plan: Bed Mobility, Education, Functional Activity Teddy, Functional Strength, Group Therapy, Gait, Safety, Therapeutic Exercise, Transfers Treatment Duration: Jul 03, 2022 Frequency: Estimated Hrs Per Day: Other Patient and/or Family Agrees t: Yes Time Time In: 1105 Time Out: 1205 DATE: Jul 09, 2022 Total Billed Treatment Time: 60 Total Billed Treatment Ex: 35, FA: 15, Gait: 10 Helga Brand PT Jul 09, 2022 12:12
--- NOTE | 2022-07-09 13:31 | Occupational Ther Daily Note ---
OT Current Status-Daily Note Subjective Pt in recliner, agreeable to OT tx followed by cotreatment. Mental Status/Objective Patient Orientation: Person, Place, Situation ADL-Treatment Therapy Code Descriptions/Definitions Functional [place] Measure: 0=Not Assessed/NA 4=Minimal Assistance 1=Total Assistance 5=Supervision or Setup 2=Maximal Assistance 6=Modified [place] 3=Moderate Assistance 7=Complete IndependenceSCALE: Activities may be completed with or without assistive devices. 9-Jycckixspk-upomawj completes the activity by him/herself with no assistance from a helper. 5-Set-up or Clean-up Assistance-helper sets up or cleans up; patient completes activity. [place] assists only prior to or following the activity. 4-Supervision or Touching Assistance-helper provides verbal cues and/or touching/steadying and/or contact guard assistance as patient completes activity. Assistance may be provided throughout the activity or intermittently. 3-Partial/Moderate Assistance-helper does LESS THAN HALF the effort. [place] lifts, holds or supports trunk or limbs, but provides less than half the effort. 2-Substantial/Maximal Assistance-helper does MORE THAN HALF the effort. [place] lifts or holds trunk or limbs and provides more than half the effort. 2-Aotqmhnuh-gqahwj does ALL the effort. Patient does none of the effort to compl ete the activity. Or, the assistance of 2 or more helpers is required for the patient to complete the activity. If activity was not attempted, code reason: 7-Patient Refused. 9-Not Applicable-not attempted and the patient did not perform the activity before the current illness, exacerbation or injury. 10-Not Attempted due to Environmental Limitations-(lack of equipment, weather restraints, etc.). 88-Not Attempted due to Medical Conditions or Safety Concerns. Other Treatment Pt in recliner, SPT to w/c using FWW. Mod A sit to stand from elevated recliner, then CGA using FWW during transfer. Pt taken to therapy gym. OT/PT cotreat due to skill of 2 clinicians required which a rehabilitation consultant could not perform in order to coordinate UE/LEs, decrease fall risk, and due to pt's limitations in strength, activity tolerance, mobility/transfers. OT focused on ADLs, UE dino cement, cues for sequencing and safety. PT focused on LE placement, gross overall movement, transfers and mobility. Pt stood in parallel bars completing BUE reaching task, x3 rounds. (1 round RUE, 1 round LUE, and 1 round alternating UEs). Pt able to reach and remove suction cups from horizontal surface in front of him, seated rest breaks between rounds. Last round, pt able to complete task without UE support on parallel bars. Pt transferred to NuStep machine, completing x5 mins total, 3 mins LEs only, and last 2mins utilizing RUE with task. Post tx, pt left with PT in therapy gym, all needs met. Education OT Patient Education: Correct positioning, Energy conservation, Modified ADL techniques, Progress toward Goal/Update tx plan, Purpose of tx/functional activities, Rehab process Teaching Recipient: Patient Teaching Methods: Discussion Response to Teaching: Verbalize Understanding OT Short Term Goals Short Term Goals Time Frame: Jul 20, 2022 Upper body dressin Lower body dressin Putting on/taking off footwear: 2 OT Group Home Goals Group Home Goals Time Frame: Aug 02, 2022 Acute change in mental status: 1 Inattention: 1 Disorganized thinkin Altered level of consciousness: 1 Eating (QC): 5 Oral Hygiene (QC): 5 Toileting Hygiene (QC): 4 Shower/Bathe Self (QC): 4 Upper Body Dressing (QC): 4 Lower Body Dressing (QC): 3 On/Off Footwear (QC): 3 Additional Goals: 1-Demonstrate ADL Tasks, 2-Verbalize Understanding, 3- ImproveStrength/[place]eddy 1=Demonstrate adherence to instructed precautions during ADL tasks. 2=Patient will verbalize/demonstrate understanding of assistive devices/modifications for ADL. 3=Patient will improve strength/tolerance for activity to enable patient to perform ADL's. OT Education/Plan Problem List/Assessment Assessment: Decreased Activ Tolerance, Decreased UE Strength, Impaired Funct Balance, Impaired I ADL's, Impaired Self-Care Skills Discharge Recommendations Plan/Recommendations: Continue POC Treatment Plan/Plan of Care Patient would benefit from OT for education, treatment and training to promote independence in ADL's, mobility, safety and/or upper extremity function for ADL's. Plan of Care: ADL Retraining, Caregiver Training Treatment Duration: Jul 03, 2022 Frequency: Modified Program (IRF) Estimated Hrs Per Day: Other Rehab Potential: Guarded Time Start Time: 13:00 Stop Time: 13:30 DATE: Jul 09, 2022 Total Time Billed (hr/min): 30 Billed Treatment Time OT Tx [id number], [place] [id number] (20') 1, FA 2 JUAN C LIM OT Jul 09, 2022 13:31
--- NOTE | 2022-07-09 15:59 | Physical Therapy Daily Note ---
PT Daily Note-Current Subjective Patient waiting on therapist for afternoon treatment. Sitting in recliner after having lunch. Pain Comment: Soft collar obtained for standing activities in // bars d/t neck pain. Section J - Health Conditions 1. Rarely or not at all 2. Occasionally 3. Frequently 4. Almost constantly 8. Unable to answer Pain Effect on Sleep: 4 Pain Interference with Therapy: 4 Pain Interference w/Day-to-Day: 4 Transfers SCALE: Activities may be completed with or without assistive devices. 4-Jxcvegxftd-sdzdnsl completes the activity by him/herself with no assistance from a helper. 5-Set-up or Clean-up Assistance-helper sets up or cleans up; patient completes activity. [place] assists only prior to or following the activity. 4-Supervision or Touching Assistance-helper provides verbal cues and/or touching/steadying and/or contact guard assistance as patient completes activity. Assistance may be provided throughout the activity or intermittently. 3-Partial/Moderate Assistance-helper does LESS THAN HALF the effort. [place] lifts, holds or supports trunk or limbs, but provides less than half the effort. 2-Substantial/Maximal Assistance-helper does MORE THAN HALF the effort. [place] lifts or holds trunk or limbs and provides more than half the effort. 2-Mitwkbqrb-dellbt does ALL the effort. Patient does none of the effort to complete the activity. Or, the assistance of 2 or more helpers is required for the patient to complete the activity. If activity was not attempted, code reason: 7-Patient Refused. 9-Not Applicable-not attempted and the patient did not perform the activity before the current illness, exacerbation or injury. 10-Not Attempted due to Environmental Limitations-(lack of equipment, weather restraints, etc.). 88-Not Attempted due to Medical Conditions or Safety Concerns. Sit to Lying (QC): 3 (min (A) to lift LE's to mattress. Patient then asked patient to straighten his legs in alignment with trunk - asked patient to try to move his legs to assist with this task.) Sit to Stand (QC): 3 (min-mod (A) depending on fatigue level using FWW. V.C. for correct UE use for sit<>stand. ) Chair/Des-ku-Hiyfr Xfer(QC): 3 (min-CGA with FWW for w/c <> Nustep, W/C <>toilet and W/c to Bed.) Toilet Transfer (QC): 3 (Min-mod (A) with FWW, used grab bar to stand from toilet.Unable to have BM. Patient used Rediwipe for own toilet hygiene without assist. ) AFO removed after transfers in gym and skin on (L) foot checked - no pressure areas. Slipper socks placed on feet for pedal pcb designer use and for transfer w/c <>bed. Exercises Patient also was able to use pedal pcb designer x 5' in room from seated position in w/c with slipper socks in place (AFO/shoes removed for pedal pcb designer in room). NuStep Minutes: 5 (3 minutes with LE's only, 2 minutes with (B) LE's and (R) UE. Soft collar in place., Work load 1.) Treatments Co-treatment with OT for standing acitivites in // bars for UE reaching/pull activities with UE's. On 2nd attempt, was able to complete alternating UE's while maintaining balance without any UE assistance. PT Long-Term Goals Public Health Epidemiologist Goals PT Public Health Epidemiologist Goals Time Frame: Jul 17, 2022 Roll Left & Right (QC): 4 Sit to Lying (QC): 4 Lying-Sitting on Side/Bed(QC): 4 Sit to Stand (QC): 4 Chair/Qcd-vi-Apddx Xfer(QC): 4 Toilet Transfer (QC): 4 Car Transfer (QC): 4 Does the Patient Walk: No and Walking Goal IS indicated Walk 10 feet (QC): 4 Walk 50ft with 2 Turns (QC): 4 Walk 150 ft (QC): 4 Walking 10ft on Uneven Surface: 4 1 Step (curb) (QC): 4 4 Steps (QC): 4 12 Steps (QC): 88 Picking up an Object (QC): 4 (using infectious waste technician) Wheel 50 feet with 2 turns (QC: 9 Wheel 150 feet: 9 PT Plan Treatment/Plan Treatment Plan: Continue Plan of Care Treatment Plan: Bed Mobility, Education, Functional Activity Teddy, Functional Strength, Group Therapy, Gait, Safety, Therapeutic Exercise, Transfers Treatment Duration: Jul 03, 2022 Frequency: Estimated Hrs Per Day: Other Patient and/or Family Agrees t: Yes Time Time In: 1310 Time Out: 1353 DATE: Jul 09, 2022 Total Billed Treatment Time: 43 Total Billed Treatment 20' co-treatment with OT for standing activities in // bars. 23' individual minutes (ex and FA) Helga Brand PT Jul 09, 2022 15:59
[2022-07-09 20:55] VITALS: BP 117/66
[2022-07-09] MEDS: AtorvaSTATin TABLET 10 MG TABLET PO SCH (21:09)
[2022-07-10] MEDS: METHOCARBAMOL 500 MG (ROBAXIN) TABLET PO PRN ×4 (01:02→17:54)
[2022-07-10] MEDS: MULTIVIT W/MINERALS TAB (THERAGRAN M) PO SCH (06:46)
[2022-07-10] MEDS: THIAMINE 100 MG (VITAMIN B-1) TAB PO SCH (06:47)
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
[2022-07-10] MEDS: inSUlin ASPART (NovoLOG) 1 UNIT/0.01 ML (CHARGE PER UNIT) SC SCH ×7 (06:50→20:40)
[2022-07-10 08:00] VITALS: BP 94/61
[2022-07-10] MEDS: DOCUSATE SODIUM 100 MG (COLACE) CAP PO SCH ×2 (08:28→20:41)
[2022-07-10] MEDS: ASPIRIN 81 MG CHEW (CHILDREN'S ASA) PO SCH (08:28)
[2022-07-10] MEDS: TAMSULOSIN 0.4 MG (FLOMAX) CAP PO SCH (08:28)
[2022-07-10] MEDS: SENNA W/DOCUSATE (SENOKOT S) TABLET PO SCH ×2 (08:28→20:41)
[2022-07-10] MEDS: FOLIC ACID 1 MG TAB PO SCH (08:28)
[2022-07-10] MEDS: GABAPENTIN 300 MG (NEURONTIN) CAP PO SCH ×2 (08:28→14:32)
[2022-07-10] MEDS: CEPHALEXIN 250 MG (KEFLEX) CAP PO SCH ×4 (08:29→20:41)
--- NOTE | 2022-07-10 11:43 | Occupational Ther Daily Note ---
OT Current Status-Daily Note Subjective Pt in bed, agreeable to OT tx with some encouragement. Pt states he is tired all the time, and sleeps all night and day unless he is up with therapy. Pt also c/o not being able to have BM, RN aware and plans to give suppository later today. ADL-Treatment Therapy Code Descriptions/Definitions Functional [place] Measure: 0=Not Assessed/NA 4=Minimal Assistance 1=Total Assistance 5=Supervision or Setup 2=Maximal Assistance 6=Modified [place] 3=Moderate Assistance 7=Complete IndependenceSCALE: Activities may be completed with or without assistive devices. 9-Xmlanbuhgz-dnryyxg completes the activity by him/herself with no assistance from a helper. 5-Set-up or Clean-up Assistance-helper sets up or cleans up; patient completes activity. [place] assists only prior to or following the activity. 4-Supervision or Touching Assistance-helper provides verbal cues and/or touching/steadying and/or contact guard assistance as patient completes activity. Assistance may be provided throughout the activity or intermittently. 3-Partial/Moderate Assistance-helper does LESS THAN HALF the effort. [place] lifts, holds or supports trunk or limbs, but provides less than half the effort. 2-Substantial/Maximal Assistance-helper does MORE THAN HALF the effort. [place] lifts or holds trunk or limbs and provides more than half the effort. 3-Nvsoobegp-ngtfhm does ALL the effort. Patient does none of the effort to complete the activity. Or, the assistance of 2 or more helpers is required for the patient to complete the activity. If activity was not attempted, code reason: 7-Patient Refused. 9-Not Applicable-not attempted and the patient did not perform the activity before the current illness, exacerbation or injury. 10-Not Attempted due to Environmental Limitations-(lack of equipment, weather restraints, etc.). 88-Not Attempted due to Medical Conditions or Safety Concerns. Oral Hygiene (QC): 6 Upper Body Dressing (QC): 3 (Mod A ) On/Off Footwear: 1 Toileting Hygiene (QC): 2 (Pt required max A overall, able to perform some of pant hike) Toilet Transfer (QC): 2 (Max A sit to stand from toilet.) Other Treatment Pt in bed, transferred supine to sit EOB (assist with LLE and trunk). Pt stood from elevated bed, CGA and transferred into bathroom using FWW Min A, then transferred to toilet. Pt completed toileting, max A sit to stand from toilet an d then transferred to w/c, min A. Pt sat at sink to complete grooming tasks independently. Pt used FWW to transfer from w/c to recliner, min A sit to stand. Pt changed his shirt, mod A overall. Pt positioned to comfort. Post tx, pt in recliner, call light in reach and all needs met. Education OT Patient Education: Correct positioning, Energy conservation, Modified ADL techniques, Progress toward Goal/Update tx plan, Purpose of tx/functional activities, Rehab process Teaching Recipient: Patient Teaching Methods: Discussion Response to Teaching: Verbalize Understanding OT Short Term Goals Short Term Goals Time Frame: Jul 20, 2022 Upper body dressin Lower body dressin Putting on/taking off footwear: 2 OT It Applications Manager Goals It Applications Manager Goals Time Frame: Aug 02, 2022 Acute change in mental status: 1 Inattention: 1 Disorganized thinkin Altered level of consciousness: 1 Eating (QC): 5 Oral Hygiene (QC): 5 Toileting Hygiene (QC): 4 Shower/Bathe Self (QC): 4 Upper Body Dressing (QC): 4 Lower Body Dressing (QC): 3 On/Off Footwear (QC): 3 Additional Goals: 1-Demonstrate ADL Tasks, 2-Verbalize Understanding, 3-ImproveStrength/[place] 1=Demonstrate adherence to instructed precautions during ADL tasks. 2=Patient will verbalize/demonstrate understanding of assistive devices/modifications for ADL. 3=Patient will improve strength/tolerance for activity to enable patient to perform ADL's. OT Education/Plan Problem List/Assessment Assessment: Decreased Activ Tolerance, Decreased UE Strength, Impaired Funct Balance, Impaired I ADL's, Impaired Self-Care Skills Discharge Recommendations Plan/Recommendations: Continue POC Treatment Plan/Plan of Care Patient would benefit from OT for education, treatment and training to promote independence in ADL's, mobility, safety and/or upper extremity function for ADL's. Plan of Care: ADL Retraining, Caregiver Training Treatment Duration: Jul 03, 2022 Frequency: Modified Program (IRF) Estimated Hrs Per Day: Other Rehab Potential: Guarded Time Start Time: 11:00 Stop Time: 12:00 DATE: Jul 10, 2022 Total Time Billed (hr/min): 60 Billed Treatment Time 1, ADL 4 JUAN C LIM OT Jul 10, 2022 11:43
--- NOTE | 2022-07-10 11:58 | Physical Therapy Daily Note ---
PT Daily Note-Current Subjective Pt found lying in bed upon entry. Agreed to PT. States that he is very tired and fatigues quickly. Reports that sometimes he is unable to move his affected LE. Pt reports neck and low back pain but does not rate. AFO placed on affected LE pre-gait training. Pain Section J - Health Conditions 1. Rarely or not at all 2. Occasionally 3. Frequently 4. Almost constantly 8. Unable to answer Pain Effect on Sleep: 4 Pain Interference with Therapy: 4 Pain Interference w/Day-to-Day: 4 Mental Status Patient Orientation: Person, Place, Time Transfers SCALE: Activities may be completed with or without assistive devices. 8-Jwdcayabbf-qnnhcuq completes the activity by him/herself with no assistance from a helper. 5-Set-up or Clean-up Assistance-helper sets up or cleans up; patient completes activity. [place] assists only prior to or following the activity. 4-Supervision or Touching Assistance-helper provides verbal cues and/or touching/steadying and/or contact guard assistance as patient completes activity. Assistance may be provided throughout the activity or intermittently. 3-Partial/Moderate Assistance-helper does LESS THAN HALF the effort. [place] lifts, holds or supports trunk or limbs, but provides less than half the effort. 2-Substantial/Maximal Assistance-helper does MORE THAN HALF the effort. [place] lifts or holds trunk or limbs and provides more than half the effort. 0-Yfjtytrsb-ekenna does ALL the effort. Patient does none of the effort to complete the activity. Or, the assistance of 2 or more helpers is required for the patient to complete the activity. If activity was not attempted, code reason: 7-Patient Refused. 9-Not Applicable-not attempted and the patient did not perform the activity before the current illness, exacerbation or injury. 10-Not Attempted due to Environmental Limitations-(lack of equipment, weather restraints, etc.). 88-Not Attempted due to Medical Conditions or Safety Concerns. Roll Left & Right (QC): 3 Sit to Lying (QC): 3 Lying to Sitting/Side of Bed(Q: 3 Sit to Stand (QC): 3 Chair/Wmo-yc-Nvedr Xfer(QC): 3 Pt Min assist with all completed transfers. Required lifting assistance with sit to stand transfers. LE assistance with bed mobility. Gait Training Does the Patient Walk?: Yes Distance: 20, 20, 20 Walk 10 feet (QC): 3 Gait Persons Needed: 1 Gait Assistive Device: FWW Pt ambulated 20 feet 3x with used of FWW and Min assist. Pt completes gait training with AFO attached to affected LE. Displays slow step pattern, short step length, and toe drag on affected LE even with use of AFO. Exercises Seated: hip, abd/add, heel slides, heel/toe raises 10x each. Assessment Current Status: Good Progress Pt displays increased fatigue with gait training. Reports that he feels like he is going to pass out during therapeutic exercises. Ambulates 60 feet total with FWW and Min assist. Demonstrates poor heel/toe off with gait training. Continue to progress pt as tolerated per POC to improve strength, endurance, functional ability, and decrease pain. PT Special Services Director Goals [facility] Goals PT Special Services Director Goals Time Frame: Jul 17, 2022 Roll Left & Right (QC): 4 Sit to Lying (QC): 4 Lying-Sitting on Side/Bed(QC): 4 Sit to Stand (QC): 4 Chair/Nzm-qp-Htsrk Xfer(QC): 4 Toilet Transfer (QC): 4 Car Transfer (QC): 4 Does the Patient Walk: No and Walking Goal IS indicated Walk 10 feet (QC): 4 Walk 50ft with 2 Turns (QC): 4 Walk 150 ft (QC): 4 Walking 10ft on Uneven Surface: 4 1 Step (curb) (QC): 4 4 Steps (QC): 4 12 Steps (QC): 88 Picking up an Object (QC): 4 (using marketing summer intern) Wheel 50 feet with 2 turns (QC: 9 Wheel 150 feet: 9 PT Plan Treatment/Plan Treatment Plan: Continue Plan of Care Treatment Plan: Bed Mobility, Education, Functional Activity Teddy, Functional Strength, Group Therapy, Gait, Safety, Therapeutic Exercise, Transfers Treatment Duration: Jul 03, 2022 Frequency: Estimated Hrs Per Day: Other Patient and/or Family Agrees t: Yes Time Time In: 0800 Time Out: 0900 DATE: Jul 10, 2022 Total Billed Treatment Time: 60 Total Billed Treatment 1 visit FA 1x EX 1x GT 2x MANUEL KRISHNAN MOTION PICTURE [employer]ERA LENS TECHNICIAN Jul 10, 2022 11:58
[2022-07-10] MEDS: BISACODYL 10 MG SUPP (DULCOLAX) RC SCH (13:33)
[2022-07-10] MEDS: polyethylene glycoL POWDER 17 GM (MIRALAX) PACK PO SCH ×2 (13:34→20:54)
--- NOTE | 2022-07-10 13:59 | Occupational Ther Daily Note ---
OT Current Status-Daily Note Subjective Pt in recliner, agreeable to OT/PT cotreat ADL-Treatment Therapy Code Descriptions/Definitions Functional [place] Measure: 0=Not Assessed/NA 4=Minimal Assistance 1=Total Assistance 5=Supervision or Setup 2=Maximal Assistance 6=Modified [place] 3=Moderate Assistance 7=Complete IndependenceSCALE: Activities may be completed with or without assistive devices. 2-Mndfmpfoqh-gkwqokk completes the activity by him/herself with no assistance from a helper. 5-Set-up or Clean-up Assistance-helper sets up or cleans up; patient completes activity. [place] assists only prior to or following the activity. 4-Supervision or Touching Assistance-helper provides verbal cues and/or touching/steadying and/or contact guard assistance as patient completes activity. Assistance may be provided throughout the activity or intermittently. 3-Partial/Moderate Assistance-helper does LESS THAN HALF the effort. [place] lifts, holds or supports trunk or limbs, but provides less than half the effort. 2-Substantial/Maximal Assistance-helper does MORE THAN HALF the effort. [place] lifts or holds trunk or limbs and provides more than half the effort. 4-Nxjifagiu-emttsc does ALL the effort. Patient does none of the effort to complete the activity. Or, the assistance of 2 or more helpers is required for the patient to complete the activity. If activity was not attempted, code reason: 7-Patient Refused. 9-Not Applicable-not attempted and the patient did not perform the activity before the current illness, exacerbation or injury. 10-Not Attempted due to Environmental Limitations-(lack of equipment, weather restraints, etc.). 88-Not Attempted due to Medical Conditions or Safety Concerns. Other Treatment OT/PT cotreat due to skill of 2 clinicians required which a vocational rehabilitation supervisor could not perform in order to coordinate UE/LEs, decrease fall risk, and due to pt's limitations in strength, activity tolerance, mobility/transfers. OT focused on ADLs, UE placement, cues for sequencing and safety. PT focused on LE placement, gross overall movement, transfers and mobility. Pt used FWW to transfer to w/c, taken to therapy gym. Pt stood in parallel bars, x2, completing UE reaching task. Pt placed 1" pegs into foam pegboard, BUEs (1 UE support on parallel bars at all times). Pt c/o fatigue post tx. Pt taken back to his room via w/c, used FWW to transfer to EOB. Please refer to PT tx note for QC scores associated with mobility/transfers. Post tx, pt EOB with RN present, call light in reach and all needs met. OT Short Term Goals Short Term Goals Time Frame: Jul 20, 2022 Upper body dressin Lower body dressin Putting on/taking off footwear: 2 OT [facility] Goals Explosive Operator Grenade Goals Time Frame: Aug 02, 2022 Acute change in mental status: 1 Inattention: 1 Disorganized thinkin Altered level of consciousness: 1 Eating (QC): 5 Oral Hygiene (QC): 5 Toileting Hygiene (QC): 4 Shower/Bathe Self (QC): 4 Upper Body Dressing (QC): 4 Lower Body Dressing (QC): 3 On/Off Footwear (QC): 3 Additional Goals: 1-Demonstrate ADL Tasks, 2-Verbalize Understanding, 3-ImproveStrength/Teddy 1=Demonstrate adherence to instructed precautions during ADL tasks. 2=Patient will verbalize/demonstrate understanding of assistive devices/modifications for ADL. 3=Patient will improve strength/tolerance for activity to enable patient to perform ADL's. OT Education/Plan Problem List/Assessment Assessment: Decreased Activ Tolerance, Decreased UE Strength, Impaired Funct Balance, Impaired I ADL's, Impaired Self-Care Skills, Restricted Funct UE ROM Discharge Recommendations Plan/Recommendations: Continue POC Treatment Plan/Plan of Care Patient would benefit from OT for education, treatment and training to promote independence in ADL's, mobility, safety and/or upper extremity function for ADL's. Plan of Care: ADL Retraining, Caregiver Training Treatment Duration: Jul 03, 2022 Frequency: Modified Program (IRF) Estimated Hrs Per Day: Other Rehab Potential: Guarded Time Start Time: 13:00 Stop Time: 13:30 DATE: Jul 10, 2022 Total Time Billed (hr/min): 30 Billed Treatment Time cotreat x30' 1, FA 2 JUAN C LIM OT Jul 10, 2022 13:59
--- NOTE | 2022-07-10 14:20 | Occupational Ther Daily Note ---
OT Current Status-Daily Note ADL-Treatment Therapy Code Descriptions/Definitions Functional [place] Measure: 0=Not Assessed/NA 4=Minimal Assistance 1=Total Assistance 5=Supervision or Setup 2=Maximal Assistance 6=Modified [place] 3=Moderate Assistance 7=Complete IndependenceSCALE: Activities may be completed with or without assistive devices. 4-Quosgiiejb-oocacje completes the activity by him/herself with no assistance from a helper. 5-Set-up or Clean-up Assistance-helper sets up or cleans up; patient completes activity. [place] assists only prior to or following the activity. 4-Supervision or Touching Assistance-helper provides verbal cues and/or touching/steadying and/or contact guard assistance as patient completes activity. Assistance may be provided throughout the activity or intermittently. 3-Partial/Moderate Assistance-helper does LESS THAN HALF the effort. [place] lifts, holds or supports trunk or limbs, but provides less than half the effort. 2-Substantial/Maximal Assistance-helper does MORE THAN HALF the effort. [place] lifts or holds trunk or limbs and provides more than half the effort. 2-Qijbjcpmj-wqtyip does ALL the effort. Patient does none of the effort to complete the activity. Or, the assistance of 2 or more helpers is required for the patient to complete the activity. If activity was not attempted, code reason: 7-Patient Refused. 9-Not Applicable-not attempted and the patient did not perform the activity before the current illness, exacerbation or injury. 10-Not Attempted due to Environmental Limitations-(lack of equipment, weather restraints, etc.). 88-Not Attempted due to Medical Conditions or Safety Concerns. OT Short Term Goals Short Term Goals Time Frame: Jul 20, 2022 Upper body dressin Lower body dressin Putting on/taking off footwear: 2 OT [facility] Goals [facility] Goals Time Frame: Aug 02, 2022 Acute change in mental status: 1 Inattention: 1 Disorganized thinkin Altered level of consciousness: 1 Eating (QC): 5 Oral Hygiene (QC): 5 Toileting Hygiene (QC): 4 Shower/Bathe Self (QC): 4 Upper Body Dressing (QC): 4 Lower Body Dressing (QC): 3 On/Off Footwear (QC): 3 Additional Goals: 1-Demonstrate ADL Tasks, 2-Verbalize Understanding, 3- ImproveStrength/Teddy 1=Demonstrate adherence to instructed precautions during ADL tasks. 2=Patient will verbalize/demonstrate understanding of assistive devices/joseph fications for ADL. 3=Patient will improve strength/tolerance for activity to enable patient to perform ADL's. OT Education/Plan Problem List/Assessment Assessment: Decreased Activ Tolerance, Decreased UE Strength, Impaired Funct Balance, Impaired I ADL's, Impaired Self-Care Skills Discharge Recommendations Plan/Recommendations: Continue POC Treatment Plan/Plan of Care Patient would benefit from OT for education, treatment and training to promote independence in ADL's, mobility, safety and/or upper extremity function for ADL's. Plan of Care: ADL Retraining, Caregiver Training Treatment Duration: Jul 03, 2022 Frequency: Modified Program (IRF) Estimated Hrs Per Day: Other Rehab Potential: Tresaed JUAN C LIM OT Jul 10, 2022 14:19
--- NOTE | 2022-07-10 15:31 | Physical Therapy Daily Note ---
PT Daily Note-Current Subjective Pt found seated in recliner upon entry. Agreed to PT. Reports pain in neck and back. Co-treatment with OT for energy conservation. Pain Section J - Health Conditions 1. Rarely or not at all 2. Occasionally 3. Frequently 4. Almost constantly 8. Unable to answer Pain Effect on Sleep: 4 Pain Interference with Therapy: 4 Pain Interference w/Day-to-Day: 4 Mental Status Patient Orientation: Person, Place, Time Transfers SCALE: Activities may be completed with or without assistive devices. 7-Jdxzjyvybq-eblabvk completes the activity by him/herself with no assistance from a helper. 5-Set-up or Clean-up Assistance-helper sets up or cleans up; patient completes activity. [place] assists only prior to or following the activity. 4-Supervision or Touching Assistance-helper provides verbal cues and/or touching/steadying and/or contact guard assistance as patient completes activity. Assistance may be provided throughout the activity or intermittently. 3-Partial/Moderate Assistance-helper does LESS THAN HALF the effort. [place] lifts, holds or supports trunk or limbs, but provides less than half the effort. 2-Substantial/Maximal Assistance-helper does MORE THAN HALF the effort. [place] lifts or holds trunk or limbs and provides more than half the effort. 6-Flzoomqzx-vjjvyb does ALL the effort. Patient does none of the effort to complete the activity. Or, the assistance of 2 or more helpers is required for the patient to complete the activity. If activity was not attempted, code reason: 7-Patient Refused. 9-Not Applicable-not attempted and the patient did not perform the activity before the current illness, exacerbation or injury. 10-Not Attempted due to Environmental Limitations-(lack of equipment, weather restraints, etc.). 88-Not Attempted due to Medical Conditions or Safety Concerns. Sit to Lying (QC): 3 Sit to Stand (QC): 3 Chair/Fxp-zw-Gygen Xfer(QC): 3 Pt MIN lifting assist with sit to stand and chair to chair transfers. MIN assist with LEs for sit to lying transfer. Gait Training Does the Patient Walk?: No and Walking Goal IS indicated Treatments Standing at parallel bars while completing UE activity: 2' x 1, 4' x 1 Assessment Current Status: Fair Progress Pt able to tolerate standing position for up to 4 minutes. Completes UE activity provided by OT while standing. Pt required a seated rest break during treatment. Reports neck and back pain throughout visit. Pt transferred to bed post-tr eatment. Continue to progress pt as tolerated per POC to increase strength, functional ability, endurance, and decrease pain. PT Mcc Goals [employer] Pipe [employer] Supervisor Goals PT Mcc Goals Time Frame: Jul 17, 2022 Roll Left & Right (QC): 4 Sit to Lying (QC): 4 Lying-Sitting on Side/Bed(QC): 4 Sit to Stand (QC): 4 Chair/Ajs-re-Hmkxz Xfer(QC): 4 Toilet Transfer (QC): 4 Car Transfer (QC): 4 Does the Patient Walk: No and Walking Goal IS indicated Walk 10 feet (QC): 4 Walk 50ft with 2 Turns (QC): 4 Walk 150 ft (QC): 4 Walking 10ft on Uneven Surface: 4 1 Step (curb) (QC): 4 4 Steps (QC): 4 12 Steps (QC): 88 Picking up an Object (QC): 4 (using pharmacy delivery driver) Wheel 50 feet with 2 turns (QC: 9 Wheel 150 feet: 9 PT Plan Treatment/Plan Treatment Plan: Continue Plan of Care Treatment Plan: Bed Mobility, Education, Functional Activity Teddy, Functional Strength, Group Therapy, Gait, Safety, Therapeutic Exercise, Transfers Treatment Duration: Jul 03, 2022 Frequency: Estimated Hrs Per Day: Other Patient and/or Family Agrees t: Yes Time Time In: 1300 Time Out: 1330 DATE: Jul 10, 2022 Total Billed Treatment Time: 30 Total Billed Treatment 1 visit FA x 2 Co-treatment time: 30 minutes Total treatment time: 30 minutes MANUEL KRISHNAN PTA Jul 10, 2022 15:31
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
[2022-07-10] MEDS: AtorvaSTATin TABLET 10 MG TABLET PO SCH (20:41)
[2022-07-10 20:44] VITALS: BP 127/71
[2022-07-11] MEDS: METHOCARBAMOL 500 MG (ROBAXIN) TABLET PO PRN ×2 (00:14→06:09)
[2022-07-11] MEDS: GABAPENTIN 300 MG (NEURONTIN) CAP PO SCH ×4 (00:14→23:34)
[2022-07-11] MEDS: MULTIVIT W/MINERALS TAB (THERAGRAN M) PO SCH (06:09)
[2022-07-11] MEDS: THIAMINE 100 MG (VITAMIN B-1) TAB PO SCH (06:09)
[2022-07-11] MEDS: inSUlin ASPART (NovoLOG) 1 UNIT/0.01 ML (CHARGE PER UNIT) SC SCH ×7 (06:19→20:37)
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
[2022-07-11 07:41] VITALS: BP 92/58
[2022-07-11] MEDS: CEPHALEXIN 250 MG (KEFLEX) CAP PO SCH ×4 (08:08→20:36)
[2022-07-11] MEDS: ASPIRIN 81 MG CHEW (CHILDREN'S ASA) PO SCH (08:08)
[2022-07-11] MEDS: FOLIC ACID 1 MG TAB PO SCH (08:08)
[2022-07-11] MEDS: polyethylene glycoL POWDER 17 GM (MIRALAX) PACK PO SCH ×2 (08:08→20:44)
[2022-07-11] MEDS: TAMSULOSIN 0.4 MG (FLOMAX) CAP PO SCH (08:08)
[2022-07-11] MEDS: SENNA W/DOCUSATE (SENOKOT S) TABLET PO SCH ×2 (08:08→20:36)
[2022-07-11] MEDS: DOCUSATE SODIUM 100 MG (COLACE) CAP PO SCH ×2 (08:08→20:36)
[2022-07-11] MEDS: BISACODYL 10 MG SUPP (DULCOLAX) RC SCH (08:09)
--- NOTE | 2022-07-11 09:45 | Occupational Ther Daily Note ---
OT Current Status-Daily Note Subjective Pt in recliner, c/o not liking the chair immediately upon OT entering the room. OT informed pt they would get out of recliner shortly for a shower, but shower needs to be set up first. Towards the end of tx, pt asked why he can't just . OT informed pt that he still had work to do on [place] and it isn't his time to go yet. Pt replied with "when I get home, I can make it my time". OT attempted to provide therapeutic listening and communication with pt. RN and pt's care team notified. ADL-Treatment Therapy Code Descriptions/Definitions Functional [place] Measure: 0=Not Assessed/NA 4=Minimal Assistance 1=Total Assistance 5=Supervision or Setup 2=Maximal Assistance 6=Modified [place] 3=Moderate Assistance 7=Complete IndependenceSCALE: Activities may be completed with or without assistive devices. 3-Iuvtnrqwrc-efldjcc completes the activity by him/herself with no assistance from a helper. 5-Set-up or Clean-up Assistance-helper sets up or cleans up; patient completes activity. [place] assists only prior to or following the activity. 4-Supervision or Touching Assistance-helper provides verbal cues and/or touching/steadying and/or contact guard assistance as patient completes activity. Assistance may be provided throughout the activity or intermittently. 3-Partial/Moderate Assistance-helper does LESS THAN HALF the effort. [place] lifts, holds or supports trunk or limbs, but provides less than half the effort. 2-Substantial/Maximal Assistance-helper does MORE THAN HALF the effort. [place] lifts or holds trunk or limbs and provides more than half the effort. 1-Klacdbjaw-cuzbea does ALL the effort. Patient does none of the effort to complete the activity. Or, the assistance of 2 or more helpers is required for the patient to complete the activity. If activity was not attempted, code reason: 7-Patient Refused. 9-Not Applicable-not attempted and the patient did not perform the activity before the current illness, exacerbation or injury. 10-Not Attempted due to Environmental Limitations-(lack of equipment, weather restraints, etc.). 88-Not Attempted due to Medical Conditions or Safety Concerns. Eating (QC): 6 Oral Hygiene (QC): 6 Shower/Bathe Self (QC): 3 (Assist with BLEs and buttocks. Pt refused attempting these areas.) Upper Body Dressing (QC): 3 (Mod A with button up shirt. Pt refused to attempt 1/2 of task, and required max encouragement for parts he completed.) Lower Body Dressing (QC): 2 (Pt required max A overall. with max encouragement, pt able to manage pants down, but refused to attempt other aspects.) On/Off Footwear: 1 (Pt refused to attempt.) Toileting Hygiene (QC): 2 (Pt requires max A with hygiene and pant hike, refused to attempt these aspects of task.) Other Treatment Pt in recliner, stood from elevated recliner with min A then transferred to VT. Pt taken into bathroom, completed grooming tasks seated at sink independently. Pt doffed clothes, then wheeled into shower. Pt completed shower, then dressing as outlined above. Pt required max VCs and encouragement throughout tx in order to attempt ADLs himself. Pt frequently replied with "I can't" or "I can't do it", raising his voice louder each time and being somewhat aggressive with the tone of his voice, although pt never showed physical signs of aggression. Pt used FWW to transfer to bed, c/o having a paper perez on his bed. OT attempted to provided education on importance of perez, but while OT was talking, pt picked it up off of the bed and threw it across the room. Pt transferred to EOB, then refused to attempt to get LEs into bed, even with education (max A sit to supine). Post tx, pt in bed, call light in reach and all needs met. Education OT Patient Education: Correct positioning, Energy conservation, Modified ADL techniques, Progress toward Goal/Update tx plan, Purpose of tx/functional activities Teaching Recipient: Patient Teaching Methods: Discussion Response to Teaching: Verbalize Understanding, Reinforcement Needed OT Short Term Goals Short Term Goals Time Frame: Jul 20, 2022 Upper body dressin Lower body dressin Putting on/taking off footwear: 2 OT [facility] Goals Manager Assisted Living Goals Time Frame: Aug 02, 2022 Acute change in mental status: 1 Inattention: 1 Disorganized thinkin Altered level of consciousness: 1 Eating (QC): 5 Oral Hygiene (QC): 5 Toileting Hygiene (QC): 4 Shower/Bathe Self (QC): 4 Upper Body Dressing (QC): 4 Lower Body Dressing (QC): 3 On/Off Footwear (QC): 3 Additional Goals: 1-Demonstrate ADL Tasks, 2-Verbalize Understanding, 3- ImproveStrength/Teddy 1=Demonstrate adherence to instructed precautions during ADL tasks. 2=Patient will verbalize/demonstrate understanding of assistive devices/modifications for ADL. 3=Patient will improve strength/tolerance for activity to enable patient to perform ADL's. OT Education/Plan Problem List/Assessment Assessment: Decreased Activ Tolerance, Decreased UE Strength, Impaired Funct Balance, Impaired I ADL's, Impaired Self-Care Skills Discharge Recommendations Plan/Recommendations: Continue POC Treatment Plan/Plan of Care Patient would benefit from OT for education, treatment and training to promote independence in ADL's, mobility, safety and/or upper extremity function for ADL's. Plan of Care: ADL Retraining, Caregiver Training Treatment Duration: Jul 03, 2022 Frequency: Modified Program (IRF) Estimated Hrs Per Day: Other Rehab Potential: Guarded Time Start Time: 08:45 Stop Time: 09:45 DATE: Jul 11, 2022 Total Time Billed (hr/min): 60 Billed Treatment Time 1, ADL 4 JUAN C LIM OT Jul 11, 2022 09:45
--- NOTE | 2022-07-11 10:50 | Occupational Ther Daily Note ---
OT Current Status-Daily Note Subjective Pt in bed, 2 visitors present. Pt agreeable to OT/PT cotreatment. Mental Status/Objective Patient Orientation: Person, Place, Situation ADL-Treatment Therapy Code Descriptions/Definitions Functional [place] Measure: 0=Not Assessed/NA 4=Minimal Assistance 1=Total Assistance 5=Supervision or Setup 2=Maximal Assistance 6=Modified [place] 3=Moderate Assistance 7=Complete IndependenceSCALE: Activities may be completed with or without assistive devices. 8-Popxuorzhm-atbfhwj completes the activity by him/herself with no assistance from a helper. 5-Set-up or Clean-up Assistance-helper sets up or cleans up; patient completes activity. [place] assists only prior to or following the activity. 4-Supervision or Touching Assistance-helper provides verbal cues and/or touching/steadying and/or contact guard assistance as patient completes activity. Assistance may be provided throughout the activity or intermittently. 3-Partial/Moderate Assistance-helper does LESS THAN HALF the effort. [place] lifts, holds or supports trunk or limbs, but provides less than half the effort. 2-Substantial/Maximal Assistance-helper does MORE THAN HALF the effort. [place] lifts or holds trunk or limbs and provides more than half the effort. 5-Lqeqeujyu-ddqwbl does ALL the effort. Patient does none of the effort to complete the activity. Or, the assistance of 2 or more helpers is required for the patient to complete the activity. If activity was not attempted, code reason: 7-Patient Refused. 9-Not Applicable-not attempted and the patient did not perform the activity before the current illness, exacerbation or injury. 10-Not Attempted due to Environmental Limitations-(lack of equipment, weather restraints, etc.). 88-Not Attempted due to Medical Conditions or Safety Concerns. On/Off Footwear: 1 Other Treatment OT/PT cotreat due to skill of 2 clinicians required which a rehabilitation coordinator could not perform in order to coordinate UE/LEs, decrease fall risk, and due to pt's limitations in strength, activity tolerance, mobility/transfers. OT focused on ADLs, UE placement, cues for sequencing and safety. PT focused on LE placement, gross overall movement, transfers and mobility. Pt transferred supine to sit EOB, SBA. Pt used FWW to perform functional mobility, 30'x4 with seated rest b reaks between. Pt then performed w/c mobility to therapy gym. Pt stood at FWW, completing BUE reaching task, grasping rings and bringing across midline. Pt able to complete x10 rings total each hand with seated rest break between. Post tx, pt in w/c in therapy gym, PT present, all needs met. Education OT Patient Education: Correct positioning, Energy conservation, Modified ADL techniques, Progress toward Goal/Update tx plan, Purpose of tx/functional activities, Rehab process Teaching Recipient: Patient Teaching Methods: Discussion Response to Teaching: Reinforcement Needed OT Short Term Goals Short Term Goals Time Frame: Jul 20, 2022 Upper body dressin Lower body dressin Putting on/taking off footwear: 2 OT Snf Goals Snf Goals Time Frame: Aug 02, 2022 Acute change in mental status: 1 Inattention: 1 Disorganized thinkin Altered level of consciousness: 1 Eating (QC): 5 Oral Hygiene (QC): 5 Toileting Hygiene (QC): 4 Shower/Bathe Self (QC): 4 Upper Body Dressing (QC): 4 Lower Body Dressing (QC): 3 On/Off Footwear (QC): 3 Additional Goals: 1-Demonstrate ADL Tasks, 2-Verbalize Understanding, 3-ImproveStrength/Teddy 1=Demonstrate adherence to instructed precautions during ADL tasks. 2=Patient will verbalize/demonstrate understanding of assistive devices/modifications for ADL. 3=Patient will improve strength/tolerance for activity to enable patient to perform ADL's. OT Education/Plan Problem List/Assessment Assessment: Decreased Activ Tolerance, Decreased UE Strength, Impaired Funct Balance, Impaired I ADL's, Impaired Self-Care Skills Discharge Recommendations Plan/Recommendations: Continue POC Treatment Plan/Plan of Care Patient would benefit from OT for education, treatment and training to promote independence in ADL's, mobility, safety and/or upper extremity function for ADL's. Plan of Care: ADL Retraining, Caregiver Training Treatment Duration: Jul 03, 2022 Frequency: Modified Program (IRF) Estimated Hrs Per Day: Other Rehab Potential: Guarded Time Start Time: 10:15 Stop Time: 10:45 DATE: Jul 11, 2022 Total Time Billed (hr/min): 30 Billed Treatment Time cotreat x30' 1, FA 2 JUAN C LIM OT Jul 11, 2022 10:50
--- NOTE | 2022-07-11 12:43 | Physical Therapy Daily Note ---
PT Daily Note-Current Subjective Pt found lying in bed upon entry. Agreed to PT. Reports pain in neck and back. Describes "pulling" pain while completing gait training and therapeutic exercises. Co-treatment with OT for energy conservation. Pain Section J - Health Conditions 1. Rarely or not at all 2. Occasionally 3. Frequently 4. Almost constantly 8. Unable to answer Pain Effect on Sleep: 4 Pain Interference with Therapy: 4 Pain Interference w/Day-to-Day: 4 Mental Status Patient Orientation: Person, Place, Time Transfers SCALE: Activities may be completed with or without assistive devices. 8-Lanejortph-gvbtops completes the activity by him/herself with no assistance from a helper. 5-Set-up or Clean-up Assistance-helper sets up or cleans up; patient completes activity. [place] assists only prior to or following the activity. 4-Supervision or Touching Assistance-helper provides verbal cues and/or touching/steadying and/or contact guard assistance as patient completes activity. Assistance may be provided throughout the activity or intermittently. 3-Partial/Moderate Assistance-helper does LESS THAN HALF the effort. [place] lifts, holds or supports trunk or limbs, but provides less than half the effort. 2-Substantial/Maximal Assistance-helper does MORE THAN HALF the effort. [place] lifts or holds trunk or limbs and provides more than half the effort. 5-Aquvofjph-hpszyf does ALL the effort. Patient does none of the effort to complete the activity. Or, the assistance of 2 or more helpers is required for the patient to complete the activity. If activity was not attempted, code reason: 7-Patient Refused. 9-Not Applicable-not attempted and the patient did not perform the activity before the current illness, exacerbation or injury. 10-Not Attempted due to Environmental Limitations-(lack of equipment, weather restraints, etc.). 88-Not Attempted due to Medical Conditions or Safety Concerns. Roll Left & Right (QC): 6 Sit to Lying (QC): 3 Lying to Sitting/Side of Bed(Q: 4 Sit to Stand (QC): 4 Toilet Transfer (QC): 3 Pt independent with rolling in bed. Required MIN assist to lift LEs while compl eting sit to lying transfers. SBA with ly to sit on EOB transfer. MIN assist with clothing and lifting to stand during toilet transfer. Gait Training Does the Patient Walk?: Yes Distance: 30 x 4 Walk 10 feet (QC): 4 Gait Persons Needed: 1 Gait Assistive Device: FWW Pt CGA with FWW during ambulation. Pt occasionally drags L toe on floor during swing phase. Displays good toe off with poor heel strike. Ambulated 30 feet x 4 with wheelchair follow. Seated rest breaks due to reported back and neck pain. Wheelchair Training Does the Pt Use a Wheelchair?: Yes Wheel 50 ft with 2 turns (QC): 4 Type of Wheelchair: Manual SBA with wheelchair mobility training. Wheeled 100 feet total. Treatments Seated exercise AAROM: heel slides, hip abd x 20 each Seated exercise: heel/toe raises, hip add x 20 each Assessment Current Status: Good Progress Pt displays limited tolerance to gait training and therapeutic activities. Ambulates up to 30 feet before requiring a seated rest break due to report pain in neck and low back. Limited ROM displayed during muscle strengthening and required assistance with therapeutic exercises to complete full motion. Continue to progress pt as tolerated per POC to increase strength, endurance, and functional ability. PT Penitentiary Goals Penitentiary Goals PT Pediatric Dental Hygienist Goals Time Frame: Jul 17, 2022 Roll Left & Right (QC): 4 Sit to Lying (QC): 4 Lying-Sitting on Side/Bed(QC): 4 Sit to Stand (QC): 4 Chair/Ucp-dr-Bwhow Xfer(QC): 4 Toilet Transfer (QC): 4 Car Transfer (QC): 4 Does the Patient Walk: No and Walking Goal IS indicated Walk 10 feet (QC): 4 Walk 50ft with 2 Turns (QC): 4 Walk 150 ft (QC): 4 Walking 10ft on Uneven Surface: 4 1 Step (curb) (QC): 4 4 Steps (QC): 4 12 Steps (QC): 88 Picking up an Object (QC): 4 (using cycle consultant) Wheel 50 feet with 2 turns (QC: 9 Wheel 150 feet: 9 PT Plan Treatment/Plan Treatment Plan: Continue Plan of Care Treatment Plan: Bed Mobility, Education, Functional Activity Teddy, Functional Strength, Group Therapy, Gait, Safety, Therapeutic Exercise, Transfers Treatment Duration: Jul 03, 2022 Frequency: Estimated Hrs Per Day: Other Patient and/or Family Agrees t: Yes Time Time In: 1015 Time Out: 1115 DATE: Jul 11, 2022 Total Billed Treatment Time: 60 Total Billed Treatment 1 visit FA x 2 GT x 1 EX x 1 Co-treatment time: 30 minutes Individual treatment time: 30 minutes Total treatment time: 60 minutes MANUEL KRISHNAN PTA Jul 11, 2022 12:43
--- NOTE | 2022-07-11 14:06 | Physical Therapy Daily Note ---
PT Daily Note-Current Subjective Pt found lying in bed upon entry. Agreed to PT. Reports that he feels like he is getting weaker all the time. States that he would feel better if he had a BM. Does not report pain. Pain Section J - Health Conditions 1. Rarely or not at all 2. Occasionally 3. Frequently 4. Almost constantly 8. Unable to answer Pain Effect on Sleep: 4 Pain Interference with Therapy: 4 Pain Interference w/Day-to-Day: 4 Mental Status Patient Orientation: Person, Place, Time Transfers SCALE: Activities may be completed with or without assistive devices. 1-Zlkjofxacg-ppzhjzr completes the activity by him/herself with no assistance from a helper. 5-Set-up or Clean-up Assistance-helper sets up or cleans up; patient completes activity. [place] assists only prior to or following the activity. 4-Supervision or Touching Assistance-helper provides verbal cues and/or touching/steadying and/or contact guard assistance as patient completes acti vity. Assistance may be provided throughout the activity or intermittently. 3-Partial/Moderate Assistance-helper does LESS THAN HALF the effort. [place] lifts, holds or supports trunk or limbs, but provides less than half the effort. 2-Substantial/Maximal Assistance-helper does MORE THAN HALF the effort. [place] lifts or holds trunk or limbs and provides more than half the effort. 2-Nvtucwfjr-hoxapj does ALL the effort. Patient does none of the effort to complete the activity. Or, the assistance of 2 or more helpers is required for the patient to complete the activity. If activity was not attempted, code reason: 7-Patient Refused. 9-Not Applicable-not attempted and the patient did not perform the activity before the current illness, exacerbation or injury. 10-Not Attempted due to Environmental Limitations-(lack of equipment, weather restraints, etc.). 88-Not Attempted due to Medical Conditions or Safety Concerns. Roll Left & Right (QC): 6 Sit to Lying (QC): 3 Lying to Sitting/Side of Bed(Q: 4 Sit to Stand (QC): 4 Pt independent with rolling. SBA with ly to sit transfers. CGA with sit to stands. MIN assist with sit to lying transfer to lift LEs into bed. Gait Training Does the Patient Walk?: Yes Distance: 30, 15, 15 Walk 10 feet (QC): 4 Gait Assistive Device: FWW Pt CGA with gait training using FWW. Ambulated with hospital gas regulator repairer helper socks only per pt request. Demonstrated slight toe drag during swing phase of gait cycle with poor heel strike. Ambulated 60 feet total. Assessment Current Status: Fair Progress Pt gait tolerance limited this visit due to reported back and neck pain. Ambulated 60 feet total with FWW and CGA. Displays slight toe drag with poor heel strike during gait training. Continue to progress pt as tolerated per POC to improve endurance, strength, functional ability, and decrease pain. PT Correction Goals Correction Goals PT Correction Goals Time Frame: Jul 17, 2022 Roll Left & Right (QC): 4 Sit to Lying (QC): 4 Lying-Sitting on Side/Bed(QC): 4 Sit to Stand (QC): 4 Chair/Ixp-vr-Poifp Xfer(QC): 4 Toilet Transfer (QC): 4 Car Transfer (QC): 4 Does the Patient Walk: No and Walking Goal IS indicated Walk 10 feet (QC): 4 Walk 50ft with 2 Turns (QC): 4 Walk 150 ft (QC): 4 Walking 10ft on Uneven Surface: 4 1 Step (curb) (QC): 4 4 Steps (QC): 4 12 Steps (QC): 88 Picking up an Object (QC): 4 (using numerical control tool programmer) Wheel 50 feet with 2 turns (QC: 9 Wheel 150 feet: 9 PT Plan Treatment/Plan Treatment Plan: Continue Plan of Care Treatment Plan: Bed Mobility, Education, Functional Activity Teddy, Functional Strength, Group Therapy, Gait, Safety, Therapeutic Exercise, Transfers Treatment Duration: Jul 03, 2022 Frequency: Estimated Hrs Per Day: Other Patient and/or Family Agrees t: Yes Time Time In: 1300 Time Out: 1330 DATE: Jul 11, 2022 Total Billed Treatment Time: 30 Total Billed Treatment 1 visit GT x 2 MAJOR,MANUEL ELEMENTARY SECRETARY Jul 11, 2022 14:06
[2022-07-11 19:24] VITALS: BP 101/58
[2022-07-11] MEDS: AtorvaSTATin TABLET 10 MG TABLET PO SCH (20:36)
[2022-07-12] MEDS: THIAMINE 100 MG (VITAMIN B-1) TAB PO SCH (05:39)
[2022-07-12] MEDS: MULTIVIT W/MINERALS TAB (THERAGRAN M) PO SCH (05:39)
[2022-07-12] MEDS: inSUlin ASPART (NovoLOG) 1 UNIT/0.01 ML (CHARGE PER UNIT) SC SCH ×7 (05:49→20:41)
[2022-07-12 08:00] VITALS: BP 113/64
[2022-07-12] MEDS: BISACODYL 10 MG SUPP (DULCOLAX) RC SCH (08:24)
[2022-07-12] MEDS: polyethylene glycoL POWDER 17 GM (MIRALAX) PACK PO SCH ×2 (08:35→20:26)
--- NOTE | 2022-07-12 08:36 | Physical Therapy Daily Note ---
PT Daily Note-Current Subjective Multiple "I can't" comments even with tasks that patient demonstrates significant improvement in. Numerous comments that he "can't wait to get out of this place". Conversation about positive mindset and patient's goals. Educated patient that he needs to be able to perform basic mobility and self- care tasks if he wants to return home. Stated "it's not bad" when asked if his neck was hurting while riding the Nustep (soft collar in place). Pain Section J - Health Conditions 1. Rarely or not at all 2. Occasionally 3. Frequently 4. Almost constantly 8. Unable to answer Pain Effect on Sleep: 4 Pain Interference with Therapy: 4 Pain Interference w/Day-to-Day: 4 Appearance In supine in bed when therapist entered room Transfers SCALE: Activities may be completed with or without assistive devices. 7-Mkrsmiokqb-krybtsd completes the activity by him/herself with no assistance from a helper. 5-Set-up or Clean-up Assistance-helper sets up or cleans up; patient completes activity. [place] assists only prior to or following the activity. 4-Supervision or Touching Assistance-helper provides verbal cues and/or touching/steadying and/or contact guard assistance as patient completes activit y. Assistance may be provided throughout the activity or intermittently. 3-Partial/Moderate Assistance-helper does LESS THAN HALF the effort. [place] lifts, holds or supports trunk or limbs, but provides less than half the effort. 2-Substantial/Maximal Assistance-helper does MORE THAN HALF the effort. [place] lifts or holds trunk or limbs and provides more than half the effort. 0-Yyfhywmnw-zbnhhg does ALL the effort. Patient does none of the effort to complete the activity. Or, the assistance of 2 or more helpers is required for the patient to complete the activity. If activity was not attempted, code reason: 7-Patient Refused. 9-Not Applicable-not attempted and the patient did not perform the activity before the current illness, exacerbation or injury. 10-Not Attempted due to Environmental Limitations-(lack of equipment, weather restraints, etc.). 88-Not Attempted due to Medical Conditions or Safety Concerns. Roll Left & Right (QC): 6 Sit to Lying (QC): 5 Lying to Sitting/Side of Bed(Q: 4 (CGA with max cues and encouragement to use UE's/(R) elbow to push up off bed) Sit to Stand (QC): 4 (CGA x 5 reps from W/C and x 1 from Nustep, to FWW.) Chair/Jiu-wu-Zywlf Xfer(QC): 4 (CGA with FWW, cues for hand placement) Toilet Transfer (QC): 4 (x 2 with use of grab bar and walker) Gait Training Does the Patient Walk?: Yes Distance: 30' x 2, FWW, (R) shoe only to assist in (L) LE movement. c-collar. Walk 10 feet (QC): 4 Walk 50 ft with 2 Turns(QC): 7 (Patient refused to walk further than 30', eventhough he was able to take full steps (B) LE's and demonstrated ability to walk further. Angry/Frustrated that (L) leg is weak. ) Walk 150 ft (QC): 7 (Patient refuses to walk further than 30.) Walking 10ft/uneven surface-QC: 4 (CGA with FWW with v.c. for walker placement up on/down off mat for 2" step up/down.) Gait Assistive Device: FWW Wheelchair Training Does the Pt Use a Wheelchair?: Yes Wheel 50 ft with 2 turns (QC): 6 (using (B) UE's for 70', holds (B) LE's up off floor.) Type of Wheelchair: Manual Exercises Able to use (B) UE's with Nustep this date without neck pain increase. NuStep Minutes: 6 NuStep Workload: 3 Treatments (L) LE hip flexion in sitting x 10 reps with foot clearance off floor - patient was unable to perform this last week. Discussed improvement and patient does not believe any has been made -- "I'm getting worse". Assessment Current Status: Fair Progress Patient has progressed with transfer ability, advancement of (L) LE with gait/transfers, and hip flexion strength, however patient does not believe he has improved and is eager to leave this unit. PT Shelter Goals Shelter Goals PT Refund Specialist Goals Time Frame: Jul 17, 2022 Roll Left & Right (QC): 4 Sit to Lying (QC): 4 Lying-Sitting on Side/Bed(QC): 4 Sit to Stand (QC): 4 Chair/Vcn-mk-Zzacu Xfer(QC): 4 Toilet Transfer (QC): 4 Car Transfer (QC): 4 Does the Patient Walk: No and Walking Goal IS indicated Walk 10 feet (QC): 4 Walk 50ft with 2 Turns (QC): 4 Walk 150 ft (QC): 4 Walking 10ft on Uneven Surface: 4 1 Step (curb) (QC): 4 4 Steps (QC): 4 12 Steps (QC): 88 Picking up an Object (QC): 4 (using battalion chief) Wheel 50 feet with 2 turns (QC: 9 Wheel 150 feet: 9 PT Plan Treatment/Plan Treatment Plan: Continue Plan of Care Treatment Plan: Bed Mobility, Education, Functional Activity Teddy, Functional Strength, Group Therapy, Gait, Safety, Therapeutic Exercise, Transfers Treatment Duration: Jul 03, 2022 Frequency: Estimated Hrs Per Day: Other Patient and/or Family Agrees t: Yes Discharge Recommendations Plan Continue POC. Patient/family considering D/C this coming weekend. Equpiment Recommendations-D/C: Front Wheeled Walker, Manual Wheelchair Time Time In: 800 Time Out: 900 DATE: Jul 12, 2022 Total Billed Treatment Time: 60 Total Billed Treatment 60': 15' ex, 20' Gait, 25' FA Helga Brand PT Jul 12, 2022 08:36
[2022-07-12] MEDS: GABAPENTIN 300 MG (NEURONTIN) CAP PO SCH ×2 (09:06→18:36)
[2022-07-12] MEDS: FOLIC ACID 1 MG TAB PO SCH (09:06)
[2022-07-12] MEDS: CEPHALEXIN 250 MG (KEFLEX) CAP PO SCH ×4 (09:06→20:37)
[2022-07-12] MEDS: ASPIRIN 81 MG CHEW (CHILDREN'S ASA) PO SCH (09:06)
[2022-07-12] MEDS: DOCUSATE SODIUM 100 MG (COLACE) CAP PO SCH ×2 (09:06→20:37)
[2022-07-12] MEDS: SENNA W/DOCUSATE (SENOKOT S) TABLET PO SCH ×2 (09:06→20:37)
[2022-07-12] MEDS: TAMSULOSIN 0.4 MG (FLOMAX) CAP PO SCH (09:06)
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
--- NOTE | 2022-07-12 10:49 | Occupational Ther Daily Note ---
OT Current Status-Daily Note Subjective Pt up in recliner, agreeable to OT Tx with some encouragement. Pt states "I just want to ". RN and pt's care team notified. Pt c/o no one listening to him about his blood sugar/insulin, stating he is mad at the doctor and nurses. Therapeutic communication/listening provided, but pt kept talking loudly over therapist. Mental Status/Objective Patient Orientation: Person, Place, Situation ADL-Treatment Therapy Code Descriptions/Definitions Functional [place] Measure: 0=Not Assessed/NA 4=Minimal Assistance 1=Total Assistance 5=Supervision or Setup 2=Maximal Assistance 6=Modified [place] 3=Moderate Assistance 7=Complete IndependenceSCALE: Activities may be completed with or without assistive devices. 5-Kyltntlunl-awoszbj completes the activity by him/herself with no assistance from a helper. 5-Set-up or Clean-up Assistance-helper sets up or cleans up; patient completes activity. [place] assists only prior to or following the activity. 4-Supervision or Touching Assistance-helper provides verbal cues and/or touching/steadying and/or contact guard assistance as patient completes activity. Assistance may be provided throughout the activity or intermittently. 3-Partial/Moderate Assistance-helper does LESS THAN HALF the effort. [place] lifts, holds or supports trunk or limbs, but provides less than half the effort. 2-Substantial/Maximal Assistance-helper does MORE THAN HALF the effort. [place] lifts or holds trunk or limbs and provides more than half the effort. 7-Ycamkzshq-wmgvdt does ALL the effort. Patient does none of the effort to complete the activity. Or, the assistance of 2 or more helpers is required for the patient to complete the activity. If activity was not attempted, code reason: 7-Patient Refused. 9-Not Applicable-not attempted and the patient did not perform the activity before the current illness, exacerbation or injury. 10-Not Attempted due to Environmental Limitations-(lack of equipment, weather restraints, etc.). 88-Not Attempted due to Medical Conditions or Safety Concerns. Other Treatment Pt in recliner, sit to stand from elevated recliner, min A, then CGA transfer to w/c. Pt's blood sugar alarm going off, states high reading. OT assisted pt with scanning device on arm and blood sugar @ 245, RN notified. Pt propelled w/c to therapy gym. OT tx focused on increasing BUE Strength and activity tolerance. Pt completed UE reaching task, placing/removing nuts/bolts from block. Pt completed x15 total, rest breaks as needed. Another task presented to pt, pt became agitated and raised his voice, stating he needs to go back to bed. OT informed pt about purpose and benefit of OT, but pt kept talking over therapist, hollering that his neck hurts, he felt like he was going to pass out, he needed to get in bed, and that he was hot. Blood sugar checked again @ 249, RN notified. Pt propelled w/c back to his room, Sit to stand from w/c Min A, then CGA transfer to EOB using FWW. Pt requests help to transfer supine, OT encouraged pt to complete himself. Pt again began talking very loudly, stating he doesn't want to be in hospital anymore, that no one is helping him or listening to him. OT attempted to educated pt on purpose and benefit of OT, and provide therapeutic listening/communication, but pt continued to talk over OT, and he didn't appear to listen to what therapist was saying. Pt able to transfer sit to supine with SBA. Post tx, pt in bed, call light in reach and all needs met. Education OT Patient Education: Correct positioning, Energy conservation, Modified ADL techniques, Progress toward Goal/Update tx plan, Purpose of tx/functional activities, Rehab process Teaching Recipient: Patient Teaching Methods: Discussion Response to Teaching: Reinforcement Needed OT Short Term Goals Short Term Goals Time Frame: Jul 20, 2022 Upper body dressin Lower body dressin Putting on/taking off footwear: 2 OT Mcfp Goals Mcfp Goals Time Frame: Aug 02, 2022 Acute change in mental status: 1 Inattention: 1 Disorganized thinkin Altered level of consciousness: 1 Eating (QC): 5 Oral Hygiene (QC): 5 Toileting Hygiene (QC): 4 Shower/Bathe Self (QC): 4 Upper Body Dressing (QC): 4 Lower Body Dressing (QC): 3 On/Off Footwear (QC): 3 Additional Goals: 1-Demonstrate ADL Tasks, 2-Verbalize Understanding, 3- ImproveStrength/Teddy 1=Demonstrate adherence to instructed precautions during ADL tasks. 2=Patient will verbalize/demonstrate understanding of assistive devices/modifications for ADL. 3=Patient will improve strength/tolerance for activity to enable patient to perform ADL's. OT Education/Plan Problem List/Assessment Assessment: Decreased Activ Tolerance, Decreased Safety Aware, Decreased UE Strength, Impaired Funct Balance, Impaired I ADL's, Impaired Self-Care Skills, Restricted Funct UE ROM Discharge Recommendations Plan/Recommendations: Continue POC Treatment Plan/Plan of Care Patient would benefit from OT for education, treatment and training to promote independence in ADL's, mobility, safety and/or upper extremity function for ADL's. Plan of Care: ADL Retraining, Caregiver Training Treatment Duration: Jul 03, 2022 Frequency: Modified Program (IRF) Estimated Hrs Per Day: Other Rehab Potential: Guarded Time Start Time: 10:00 Stop Time: 11:00 DATE: Jul 12, 2022 Total Time Billed (hr/min): 60 Billed Treatment Time 1, FA 4 JUAN C LIM OT Jul 12, 2022 10:49
--- NOTE | 2022-07-12 14:11 | Occupational Ther Daily Note ---
OT Current Status-Daily Note Subjective Pt alert, lying in bed talking on phone. Pt agrees to therapy. Pt c/o stretching on L side when standing. Co-treat with PT ([id number]), skills of 2 clinicians required to decrease fall risk, increase overall mobility and stamina. PT focusing on ambulations and transfers while OT focusing on B UE placement and functional mobility education. Mental Status/Objective Patient Orientation: Person, Place, Time, Situation Attachments: Other-See Comments (neck brace) ADL-Treatment Therapy Code Descriptions/Definitions Functional [place] Measure: 0=Not Assessed/NA 4=Minimal Assistance 1=Total Assistance 5=Supervision or Setup 2=Maximal Assistance 6=Modified [place] 3=Moderate Assistance 7=Complete IndependenceSCALE: Activities may be completed with or without assistive devices. 9-Ofqxwelrjy-qmaesjz completes the activity by him/herself with no assistance from a helper. 5-Set-up or Clean-up Assistance-helper sets up or cleans up; patient completes activity. [place] assists only prior to or following the activity. 4-Supervision or Touching Assistance-helper provides verbal cues and/or touching/steadying and/or contact guard assistance as patient completes activity. Assistance may be provided throughout the activity or intermittently. 3-Partial/Moderate Assistance-helper does LESS THAN HALF the effort. [place] lifts, holds or supports trunk or limbs, but provides less than half the effort. 2-Substantial/Maximal Assistance-helper does MORE THAN HALF the effort. [place] lifts or holds trunk or limbs and provides more than half the effort. 9-Uydjlxsrc-pxofij does ALL the effort. Patient does none of the effort to complete the activity. Or, the assistance of 2 or more helpers is required for the patient to complete the activity. If activity was not attempted, code reason: 7-Patient Refused. 9-Not Applicable-not attempted and the patient did not perform the activity before the current illness, exacerbation or injury. 10-Not Attempted due to Environmental Limitations-(lack of equipment, weather restraints, etc.). 88-Not Attempted due to Medical Conditions or Safety Concerns. Other Treatment Min A for supine <--> EOB. Pt agrees to ambulate short distances with multiple recovery breaks. Pt ambulated to bathroom and transferred to toilet with CGA for safety. Pt required assist to cleanse buttocks then CGA to hike pants over hips. After session, pt lying in bed with call light/phone in reach. All needs met in room. OT Short Term Goals Short Term Goals Time Frame: Jul 20, 2022 Upper body dressin Lower body dressin Putting on/taking off footwear: 2 OT Heel Stiffener Goals Heel Stiffener Goals Time Frame: Aug 02, 2022 Acute change in mental status: 1 Inattention: 1 Disorganized thinkin Altered level of consciousness: 1 Eating (QC): 5 Oral Hygiene (QC): 5 Toileting Hygiene (QC): 4 Shower/Bathe Self (QC): 4 Upper Body Dressing (QC): 4 Lower Body Dressing (QC): 3 On/Off Footwear (QC): 3 Additional Goals: 1-Demonstrate ADL Tasks, 2-Verbalize Understanding, 3-ImproveStrength/Teddy 1=Demonstrate adherence to instructed precautions during ADL tasks. 2=Patient will verbalize/demonstrate understanding of assistive devices/modifications for ADL. 3=Patient will improve strength/tolerance for activity to enable patient to per form ADL's. OT Education/Plan Problem List/Assessment Assessment: Decreased Activ Tolerance, Impaired Bed Mobility, Impaired Funct Balance, Impaired Self-Care Skills Discharge Recommendations Plan/Recommendations: Continue POC Treatment Plan/Plan of Care Patient would benefit from OT for education, treatment and training to promote independence in ADL's, mobility, safety and/or upper extremity function for ADL's. Plan of Care: ADL Retraining, Caregiver Training Treatment Duration: Jul 03, 2022 Frequency: Modified Program (IRF) Estimated Hrs Per Day: Other Rehab Potential: Guarded Time Start Time: 13:00 Stop Time: 13:30 DATE: Jul 12, 2022 Total Time Billed (hr/min): 30 Billed Treatment Time 1 visit-FA 2 (30 min) co-treat with PT 30 min LIV BLANCHARD Jul 12, 2022 14:11
--- NOTE | 2022-07-12 15:37 | Physical Therapy Daily Note ---
PT Daily Note-Current Pain Section J - Health Conditions 1. Rarely or not at all 2. Occasionally 3. Frequently 4. Almost constantly 8. Unable to answer Pain Effect on Sleep: 4 Pain Interference with Therapy: 4 Pain Interference w/Day-to-Day: 4 Transfers SCALE: Activities may be completed with or without assistive devices. 6-Eoirnrbgzb-gusvnex completes the activity by him/herself with no assistance from a helper. 5-Set-up or Clean-up Assistance-helper sets up or cleans up; patient completes activity. [place] assists only prior to or following the activity. 4-Supervision or Touching Assistance-helper provides verbal cues and/or touching/steadying and/or contact guard assistance as patient completes activity. Assistance may be provided throughout the activity or intermittently. 3-Partial/Moderate Assistance-helper does LESS THAN HALF the effort. [place] lifts, holds or supports trunk or limbs, but provides less than half the effort. 2-Substantial/Maximal Assistance-helper does MORE THAN HALF the effort. [place] lifts or holds trunk or limbs and provides more than half the effort. 5-Lczgoalif-ronxec does ALL the effort. Patient does none of the effort to complete the activity. Or, the assistance of 2 or more helpers is required for the patient to complete the activity. If activity was not attempted, code reason: 7-Patient Refused. 9-Not Applicable-not attempted and the patient did not perform the activity before the current illness, exacerbation or injury. 10-Not Attempted due to Environmental Limitations-(lack of equipment, weather restraints, etc.). 88-Not Attempted due to Medical Conditions or Safety Concerns. Treatments Co-treat with PT ([id number]), skills of 2 clinicians required to decrease fall risk, increase overall mobility and stamina. PT focusing on ambulations and transfers while OT focusing on B UE placement and functional mobility education. Pt used FWW but it is not safe to use at this time and [facility] will be used for mobility due to VC needed for safety and fatigue. Assessment Current Status: Fair Progress Pt fatigues easily and needs frequent RB as well as VC for safety. When walking is attempted, pt is followed by [facility] and this is deemed unsafe. PT Detention Goals Track Fitter Goals PT Track Fitter Goals Time Frame: Jul 17, 2022 Roll Left & Right (QC): 4 Sit to Lying (QC): 4 Lying-Sitting on Side/Bed(QC): 4 Sit to Stand (QC): 4 Chair/Sex-ne-Xkgwb Xfer(QC): 4 Toilet Transfer (QC): 4 Car Transfer (QC): 4 Does the Patient Walk: No and Walking Goal IS indicated Walk 10 feet (QC): 4 Walk 50ft with 2 Turns (QC): 4 Walk 150 ft (QC): 4 Walking 10ft on Uneven Surface: 4 1 Step (curb) (QC): 4 4 Steps (QC): 4 12 Steps (QC): 88 Picking up an Object (QC): 4 (using robotics engineer) Wheel 50 feet with 2 turns (QC: 9 Wheel 150 feet: 9 PT Plan Problem List Problem List: Activity Tolerance, Functional Strength, Safety Treatment/Plan Treatment Plan: Continue Plan of Care Treatment Plan: Bed Mobility, Education, Functional Activity Teddy, Functional Strength, Group Therapy, Gait, Safety, Therapeutic Exercise, Transfers Treatment Duration: Jul 03, 2022 Frequency: Estimated Hrs Per Day: Other Patient and/or Family Agrees t: Yes Safety Risks/Education Patient Education: Gait Training, Safety Issues Teaching Recipient: Patient Teaching Methods: Discussion Response to Teaching: Reinforcement Needed Time Time In: 1300 Time Out: 1330 DATE: Jul 12, 2022 Total Billed Treatment Time: 30 Total Billed Treatment Co-treat w/OT for 30m 1, GT x2 (30m) AJAY IRVIN PTA Jul 12, 2022 15:37
[2022-07-12] MEDS: ACETAMINOPHEN 500 MG TAB (TYLENOL) PO PRN (18:39)
[2022-07-12 19:24] VITALS: BP 121/65
[2022-07-12] MEDS: METHOCARBAMOL 500 MG (ROBAXIN) TABLET PO PRN (20:37)
[2022-07-12] MEDS: AtorvaSTATin TABLET 10 MG TABLET PO SCH (20:37)
[2022-07-13] MEDS: GABAPENTIN 300 MG (NEURONTIN) CAP PO SCH ×3 (00:33→15:33)
[2022-07-13] MEDS: METHOCARBAMOL 500 MG (ROBAXIN) TABLET PO PRN ×3 (05:09→17:57)
[2022-07-13] MEDS: MULTIVIT W/MINERALS TAB (THERAGRAN M) PO SCH (05:09)
[2022-07-13] MEDS: THIAMINE 100 MG (VITAMIN B-1) TAB PO SCH (05:09)
[2022-07-13] MEDS: inSUlin ASPART (NovoLOG) 1 UNIT/0.01 ML (CHARGE PER UNIT) SC SCH ×7 (05:12→20:42)
[2022-07-13] MEDS: ASPIRIN 81 MG CHEW (CHILDREN'S ASA) PO SCH (07:55)
[2022-07-13] MEDS: FOLIC ACID 1 MG TAB PO SCH (07:55)
[2022-07-13] MEDS: TAMSULOSIN 0.4 MG (FLOMAX) CAP PO SCH (07:55)
[2022-07-13] MEDS: CEPHALEXIN 250 MG (KEFLEX) CAP PO SCH ×4 (07:55→20:52)
[2022-07-13] MEDS: SENNA W/DOCUSATE (SENOKOT S) TABLET PO SCH ×2 (07:56→20:54)
[2022-07-13] MEDS: DOCUSATE SODIUM 100 MG (COLACE) CAP PO SCH ×2 (07:56→20:54)
[2022-07-13 08:00] VITALS: BP 96/56
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
--- NOTE | 2022-07-13 08:27 | Occupational Ther Daily Note ---
OT Current Status-Daily Note Subjective Pt alert, lying in bed. Nrsg in room. Pt agrees to therapy. No c/o pain. PT/OT co-treat ([id number]), skills of 2 clinicians required to decrease fall with mobility, ADLs, transfers and ambulation. PT working on standing, ambulation and transfers while OT focusing on ADLs, functional mobility and safety with home environment. Mental Status/Objective Patient Orientation: Person, Place, Time, Situation Attachments: Other-See Comments (Diabetic monitor) ADL-Treatment Pt agrees to shower. SBA for bed mobility. SBA for sit to stand from higher surface, assist with standing from lower surface. Pt ambulated with CGA to bathroom and transferred to toilet with min A due to height of toilet. Pt able to complete shower sitting on shower bench with cushion to increase height. Using grabbars, handheld shower and LH sponge pt was able to reach all areas except buttocks. Sitting at sink, pt able to complete oral care and grooming independently. Min A for UBD. Mod A for LBD. Max A for footwear. Pt reluctant to use AE for dressing. Therapy Code Descriptions/Definitions Functional [place] Measure: 0=Not Assessed/NA 4=Minimal Assistance 1=Total Assistance 5=Supervision or Setup 2=Maximal Assistance 6=Modified [place] 3=Moderate Assistance 7=Complete IndependenceSCALE: Activities may be completed with or without assistive devices. 2-Urfrypajpp-jqhklgb completes the activity by him/herself with no assistance from a helper. 5-Set-up or Clean-up Assistance-helper sets up or cleans up; patient completes activity. [place] assists only prior to or following the activity. 4-Supervision or Touching Assistance-helper provides verbal cues and/or touching/steadying and/or contact guard assistance as patient completes activity. Assistance may be provided throughout the activity or intermittently. 3-Partial/Moderate Assistance-helper does LESS THAN HALF the effort. [place] lifts, holds or supports trunk or limbs, but provides less than half the effort. 2-Substantial/Maximal Assistance-helper does MORE THAN HALF the effort. [place] lifts or holds trunk or limbs and provides more than half the effort. 4-Fmyrqpwze-snbwsq does ALL the effort. Patient does none of the effort to complete the activity. Or, the assistance of 2 or more helpers is required for the patient to complete the activity. If activity was not attempted, code reason: 7-Patient Refused. 9-Not Applicable-not attempted and the patient did not perform the activity before the current illness, exacerbation or injury. 10-Not Attempted due to Environmental Limitations-(lack of equipment, weather restraints, etc.). 88-Not Attempted due to Medical Conditions or Safety Concerns. Eating (QC): 6 Oral Hygiene (QC): 6 Shower/Bathe Self (QC): 3 Upper Body Dressing (QC): 3 Lower Body Dressing (QC): 3 (mod A) On/Off Footwear: 2 Toileting Hygiene (QC): 3 (mod A) Toilet Transfer (QC): 3 Other Treatment Pt demonstrates good w/c mobility. CGA for ambulation with frequent recovery breaks. See PT notes for stairs and car transfers. Pt left in care of PT after session. BIMS CAM BIMS Expression of Ideas and Wants: Without Difficulty Understanding Verbal Content: Understands Brief Interview/Mental Status: Yes IRF LUIS BIMS: IRF LUIS BIMS Response (Comments) Value Repitition of Three Words Three 3 Recalls Socks Yes, After Cueing (Wear) 1 Recalls Blue Yes, No Cue Required 2 Recalls Bed Yes, After Cueing 1 Year Correct 3 Month Accurate Within 5 Days 2 Day Correct 1 Total 13 Patient Normally Able to Recal: Current Session, Location of own room, Staff Names and faces, That he/she in a hsp Should Staff Asses. Mental St.: No CAM Mental Status Change/Baseline: 0 Inattention: 0 Disorganized thinkin Altered level of consciousness: 0 OT Short Term Goals Short Term Goals Time Frame: Jul 20, 2022 Upper body dressin Lower body dressin Putting on/taking off footwear: 2 OT Barrel Drum Cutter Goals Barrel Drum Cutter Goals Time Frame: Aug 02, 2022 Acute change in mental status: 1 Inattention: 1 Disorganized thinkin Altered level of consciousness: 1 Eating (QC): 5 (met) Oral Hygiene (QC): 5 (met) Toileting Hygiene (QC): 4 (not met) Shower/Bathe Self (QC): 4 (not met) Upper Body Dressing (QC): 4 (not met) Lower Body Dressing (QC): 3 (not met) On/Off Footwear (QC): 3 (not met) Additional Goals: 1-Demonstrate ADL Tasks, 2-Verbalize Understanding, 3- ImproveStrength/Teddy 1=Demonstrate adherence to instructed precautions during ADL tasks. 2=Patient will verbalize/demonstrate understanding of assistive devices/modifications for ADL. 3=Patient will improve strength/tolerance for activity to enable patient to perform ADL's. OT Education/Plan Problem List/Assessment Assessment: Decreased Activ Tolerance, Decreased Safety Aware, Impaired Self- Care Skills Discharge Recommendations Plan/Recommendations: Continue POC Therapy Discharge Recommendati: Home & Family Treatment Plan/Plan of Care Patient would benefit from OT for education, treatment and training to promote independence in ADL's, mobility, safety and/or upper extremity function for ADL's. Plan of Care: ADL Retraining, Caregiver Training Treatment Duration: Jul 03, 2022 Frequency: Modified Program (IRF) Estimated Hrs Per Day: Other Rehab Potential: Guarded Time Start Time: 08:00 Stop Time: 09:00 DATE: Jul 13, 2022 Total Time Billed (hr/min): 60 Billed Treatment Time 1 visit-ADL 3 (40 min) FA 1 (20 min) co-treat with PT [id number] LIV BLANCHARD Jul 13, 2022 08:27
[2022-07-13] MEDS: polyethylene glycoL POWDER 17 GM (MIRALAX) PACK PO SCH ×2 (08:53→20:54)
[2022-07-13] MEDS: BISACODYL 10 MG SUPP (DULCOLAX) RC SCH (08:54)
--- NOTE | 2022-07-13 09:47 | Physical Therapy Daily Note ---
PT Daily Note-Current Subjective Patient continues to require extensive encouragement to complete tasks. Discussion with patient and son this a.m. re. home safety, equipment recommendations, home mobility recommendations, Home Health PT followed by outpatient PT if therapy agrees to participate. Pain Section J - Health Conditions 1. Rarely or not at all 2. Occasionally 3. Frequently 4. Almost constantly 8. Unable to answer Pain Effect on Sleep: 4 Pain Interference with Therapy: 4 Pain Interference w/Day-to-Day: 4 Mental Status Patient Orientation: Person, Place, Time, Situation Transfers SCALE: Activities may be completed with or without assistive devices. 1-Udpcigxlbj-gpztjlt completes the activity by him/herself with no assistance from a helper. 5-Set-up or Clean-up Assistance-helper sets up or cleans up; patient completes activity. [place] assists only prior to or following the activity. 4-Supervision or Touching Assistance-helper provides verbal cues and/or touching/steadying and/or contact guard assistance as patient completes activity. Assistance may be provided throughout the activity or intermittently. 3-Partial/Moderate Assistance-helper does LESS THAN HALF the effort. [place] l ifts, holds or supports trunk or limbs, but provides less than half the effort. 2-Substantial/Maximal Assistance-helper does MORE THAN HALF the effort. [place] lifts or holds trunk or limbs and provides more than half the effort. 5-Gohrbflqv-uftgzs does ALL the effort. Patient does none of the effort to complete the activity. Or, the assistance of 2 or more helpers is required for t he patient to complete the activity. If activity was not attempted, code reason: 7-Patient Refused. 9-Not Applicable-not attempted and the patient did not perform the activity before the current illness, exacerbation or injury. 10-Not Attempted due to Environmental Limitations-(lack of equipment, weather restraints, etc.). 88-Not Attempted due to Medical Conditions or Safety Concerns. Roll Left & Right (QC): 6 Sit to Lying (QC): 6 Lying to Sitting/Side of Bed(Q: 5 Sit to Stand (QC): 4 Chair/Tqb-jd-Rsbdr Xfer(QC): 4 Toilet Transfer (QC): 4 Car Transfer (QC): 3 (Min (A) to lift (L) LE into vehicle.) Weight Bearing Right Lower Extremity: Right Weight Bearing/Tolerated Left Lower Extremity: Left Weight Bearing/Tolerated Gait Training Does the Patient Walk?: Yes Distance: 50' x 2 with FWW Walk 10 feet (QC): 4 (FWW) Walk 50 ft with 2 Turns(QC): 4 (with FWW) Walk 150 ft (QC): 9 (Patient unable to perform due to activity tolerance limit ations) Walking 10ft/uneven surface-QC: 4 (with FWW) Gait Persons Needed: 1 Gait Assistive Device: FWW Increased time to complete to advance (L) LE. Elevating (R) LE with shoe allows improved/independent (L) foot placement/stepping strategy. Wheelchair Training Does the Pt Use a Wheelchair?: Yes Wheel 50 ft with 2 turns (QC): 6 ((B) UE's, LE's prn) Wheel 150 ft (QC): 6 ((B) UE's, LE's prn) Type of Wheelchair: Manual Stair Training Stair Training: Handrails/: 2 handrails 1 Step (curb) (QC): 3 (min (A) with FWW) 4 Steps (QC): 3 (Min (A) with max sequence cues) 12 Steps (QC): 88 (not safe due to activity tolerance limitations) Stairs: Pattern: Step to Balance Picking up an Object (QC): 6 (with branch store manager) Assessment Current Status: Fair Progress Continues to require extensive encouragement to participate at times. Has made good progress with transfers/gait to a CGA level. Patient, however, does not perceive that he has improved. Neck pain persists - patient does not like to wear the soft c-collar, but it does allow for more upright mobility with less fatigue/pain in the neck/back. PT Long-Term Goals Long-Term Goals PT Telecommunication Engineer Goals Time Frame: Jul 17, 2022 Roll Left & Right (QC): 4 Sit to Lying (QC): 4 Lying-Sitting on Side/Bed(QC): 4 Sit to Stand (QC): 4 Chair/Oad-ve-Vyktw Xfer(QC): 4 Toilet Transfer (QC): 4 Car Transfer (QC): 4 Does the Patient Walk: No and Walking Goal IS indicated Walk 10 feet (QC): 4 Walk 50ft with 2 Turns (QC): 4 Walk 150 ft (QC): 4 Walking 10ft on Uneven Surface: 4 1 Step (curb) (QC): 4 4 Steps (QC): 4 12 Steps (QC): 88 Picking up an Object (QC): 4 (using branch store manager) Wheel 50 feet with 2 turns (QC: 9 Wheel 150 feet: 9 PT Plan Treatment/Plan Treatment Plan: Continue Plan of Care Treatment Plan: Bed Mobility, Education, Functional Activity Teddy, Functional Strength, Group Therapy, Gait, Safety, Therapeutic Exercise, Transfers Treatment Duration: Jul 03, 2022 Frequency: Estimated Hrs Per Day: Other Patient and/or Family Agrees t: Yes Safety Risks/Education Patient Education: Gait Training, Transfer Techniques, Steps, Issued Written HEP, W/C Management, Instructions to Caregiver, Safety Issues Teaching Recipient: Patient, Family Teaching Methods: Demonstration, Handout, Discussion Response to Teaching: Verbalize Understanding Discharge Recommendations Therapy Discharge Recommendati: 24 Hour Supervision, Home & Family, Post Acute PT Equpiment Recommendations-D/C: Front Wheeled Walker, Manual Wheelchair Discharge Status/Home Program Has been given written handout for LE exercise and son has acquired a home pedal dragger as recommended by PT. Time Time In: 800 Time Out: 930 DATE: Jul 13, 2022 Total Billed Treatment Time: 90 Total Billed Treatment 90' (1 hour co-treatment including patient/family education on safety, home mobility suggestions, 30 minutes individual treatment) -- Gait 30, W/C 15', FA 45 Helga Brand PT Jul 13, 2022 09:47
--- NOTE | 2022-07-13 11:12 | Occupational Ther Daily Note ---
OT Current Status-Daily Note Subjective REQUIRES MODERATE ENCOURAGEMENT AND REDIRECTION TO PARTICIPATE AND COMPLETE SESSION Mental Status/Objective Patient Orientation: Person, [facility]"), Time, Situation ADL-Treatment Therapy Code Descriptions/Definitions Functional [place] Measure: 0=Not Assessed/NA 4=Minimal Assistance 1=Total Assistance 5=Supervision or Setup 2=Maximal Assistance 6=Modified [place] 3=Moderate Assistance 7=Complete IndependenceSCALE: Activities may be completed with or without assistive devices. 8-Jsyhurugrv-ceybsrc completes the activity by him/herself with no assistance from a helper. 5-Set-up or Clean-up Assistance-helper sets up or cleans up; patient completes activity. [place] assists only prior to or following the activity. 4-Supervision or Touching Assistance-helper provides verbal cues and/or touching/steadying and/or contact guard assistance as patient completes activity. Assistance may be provided throughout the activity or intermittently. 3-Partial/Moderate Assistance-helper does LESS THAN HALF the effort. [place] lifts, holds or supports trunk or limbs, but provides less than half the effort. 2-Substantial/Maximal Assistance-helper does MORE THAN HALF the effort. [place] lifts or holds trunk or limbs and provides more than half the effort. 1-Lqpojzbev-zjkoyf does ALL the effort. Patient does none of the effort to complete the activity. Or, the assistance of 2 or more helpers is required for the patient to complete the activity. If activity was not attempted, code reason: 7-Patient Refused. 9-Not Applicable-not attempted and the patient did not perform the activity before the current illness, exacerbation or injury. 10-Not Attempted due to Environmental Limitations-(lack of equipment, weather restraints, etc.). 88-Not Attempted due to Medical Conditions or Safety Concerns. Eating (QC): 7 (REFUSES TO REACH ON BED TRAY TO GRASP OWN DRINK OF WATER WHILE RECLINED IN BED) OT POSITIONED HOB TO PREPARE FOR EXITING BED TO SIT ON EDGE, PATENT CURSED AT THERAPIST AND TOOK THE BED REMOTE AND LOWERED HIMSELF TO A LESS INCLINED POSITION AND CLOSED HIS EYES Education OT Patient Education: Correct positioning (REFUSED SOFT COLLAR DURING THERAPY SESSION), Exercise program, Modified ADL techniques, Progress toward Goal/Update tx plan, Purpose of tx/functional activities, Reviewed precautions, Safety issues, Transfer techniques (LOG ROLLING IN BED) Teaching Recipient: Patient Teaching Methods: Demonstration, Discussion Response to Teaching: Reinforcement Needed (REQUIRES STRONG ENCOURAGEMENT TO PARTICIPATE) OT Short Term Goals Short Term Goals Time Frame: Jul 20, 2022 Upper body dressin Lower body dressin Putting on/taking off footwear: 2 OT Bulldozer Operator Goals Custodial Goals Time Frame: Aug 02, 2022 Acute change in mental status: 0 Inattention: 0 Disorganized thinkin Altered level of consciousness: 0 Eating (QC): 5 (met) Oral Hygiene (QC): 5 (met) Toileting Hygiene (QC): 4 (not met) Shower/Bathe Self (QC): 4 (not met) Upper Body Dressing (QC): 4 (not met) Lower Body Dressing (QC): 3 (not met) On/Off Footwear (QC): 3 (not met) Additional Goals: 1-Demonstrate ADL Tasks, 2-Verbalize Understanding, 3-Improve Strength/Teddy 1=Demonstrate adherence to instructed precautions during ADL tasks. 2=Patient will verbalize/demonstrate understanding of assistive devices/modifications for ADL. 3=Patient will improve strength/tolerance for activity to enable patient to pe rform ADL's. OT Education/Plan Problem List/Assessment Assessment: Decreased Activ Tolerance, Decreased Safety Aware, Impaired Bed Mobility, Impaired Coordination, Impaired Funct Balance, Impaired Self-Care Ski lls Discharge Recommendations Plan/Recommendations: Continue POC Treatment Plan/Plan of Care Treatment,Training & Education: Yes Patient would benefit from OT for education, treatment and training to promote independence in ADL's, mobility, safety and/or upper extremity function for ADL's. Plan of Care: ADL Retraining, Caregiver Training Treatment Duration: Jul 03, 2022 Frequency: Modified Program (IRF) Estimated Hrs Per Day: Other Rehab Potential: Guarded Time Start Time: 10:57 Stop Time: 11:27 DATE: Jul 13, 2022 Total Time Billed (hr/min): 30 Billed Treatment Time EX 30 MINUTES MICAH YO OT Jul 13, 2022 11:12
[2022-07-13 20:52] VITALS: BP 156/78
[2022-07-13] MEDS: AtorvaSTATin TABLET 10 MG TABLET PO SCH (20:52)
[2022-07-14] MEDS: METHOCARBAMOL 500 MG (ROBAXIN) TABLET PO PRN ×2 (00:11→06:48)
[2022-07-14] MEDS: GABAPENTIN 300 MG (NEURONTIN) CAP PO SCH ×2 (00:12→08:08)
[2022-07-14] MEDS: inSUlin ASPART (NovoLOG) 1 UNIT/0.01 ML (CHARGE PER UNIT) SC SCH ×2 (05:15→06:48)
[2022-07-14] MEDS: MULTIVIT W/MINERALS TAB (THERAGRAN M) PO SCH (06:48)
[2022-07-14] MEDS: THIAMINE 100 MG (VITAMIN B-1) TAB PO SCH (06:48)
[2022-07-14] MEDS ORDERED: ASPI81TA64 PO (06:53)
[2022-07-14] MEDS ORDERED: SENN1TAB76 PO (06:53)
[2022-07-14] MEDS ORDERED: GABA300C PO (06:53)
[2022-07-14] MEDS ORDERED: METH-731 PO (06:53)
[2022-07-14] MEDS ORDERED: MULT-1137 PO (06:53)
[2022-07-14] MEDS ORDERED: BISA10SU8 RC (06:53)
[2022-07-14] MEDS ORDERED: ATOR10TA66 PO (06:53)
[2022-07-14] MEDS ORDERED: ACHYD1T PO (06:53)
[2022-07-14] MEDS ORDERED: TMSL.4C PO (06:53)
--- NOTE | 2022-07-14 06:55 | D/C HH Face to Face Order ---
D/C Face to Face Orders Reconcile Patient Problems Problems Reviewed?: Yes Instructions for Patient Via [facility], Patient Instructions/FollowUp: PCP 1 week Physician to follow Patient: PCP Discharge Diet for Home: No Restrictions Patient Problems: Left knee replacement Patient Data-Allergies,Ht & Wt Patient Allergies: Coded Allergies: morphine (Verified Allergy, Unknown, pt tolerated oxycodone in past, 07/03/22) Home Health Need/Face to Face Date of Face to Face: Jul 14, 2022 Clinical Findings: Generalized weakness and fatigue, Instability, Muscle weakness, Pain with ambulation, Unsteady gait I have seen Pt [id number]: Yes Discharged To: Home Diagnosis/Conditions: Left knee replacement Patient is Homebound due to: Reva fall risk due to instabilty, Muscle we akness, Pain w/ambulation Homebound Status Due to the above stated illness, injury or surgical procedure (medical condition or diagnosis) and associated clinical findings, the patient is homebound because of his/her inability to leave home except with aid of a supportive device and/or person AND leaving the home requires a considerable and taxing effort or is medically contraindicated. Pt req the following assistanc: [facility] Nursing Orders Home Health Services Order: Nursing Services, Surgical Rn-Evaluate & Treat, Physical Therapy-Evaluate & Treat Certify Stmt I certify that this patient is under my care and that I, a nurse practitioner or a physician; a sound assistant working with me, had a face to face encounter that - meets the physician face to face encounter requirements with this patient as dated. LIA CHANEY DO Jul 14, 2022 06:55
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
--- NOTE | 2022-07-14 06:57 | D/C HH Face to Face Order ---
D/C Face to Face Orders Reconcile Patient Problems Problems Reviewed?: Yes Instructions for Patient Via [facility], Patient Instructions/FollowUp: PCP 1 week Physician to follow Patient: [facility] Discharge Diet for Home: ADA Diet Patient Problems: Cervical spine surgery Patient Data-Allergies,Ht & Wt Patient Allergies: Coded Allergies: morphine (Verified Allergy, Unknown, pt tolerated oxycodone in past, ) Home Health Need/Face to Face Date of Face to Face: Jul 14, 2022 Clinical Findings: Generalized weakness and fatigue, Instability, Muscle weakness, Pain with ambulation, Unsteady gait I have seen Pt mjkz-[id number]: Yes Discharged To: Home Diagnosis/Conditions: Cervical spine surgery Patient is Homebound due to: Reva fall risk due to instabilty, Muscle weaknes s, Pain w/ambulation Homebound Status Due to the above stated illness, injury or surgical procedure (medical condition or diagnosis) and associated clinical findings, the patient is homebound because of his/her inability to leave home except with aid of a supportive device and/or person AND leaving the home requires a considerable and taxing effort or is medically contraindicated. Pt req the following assistanc: [facility] Nursing Orders Home Health Services Order: Nursing Services, [employer] Consultant-Evaluate & Treat, Physical Therapy-Evaluate & Treat Certify Stmt I certify that this patient is under my care and that I, a nurse practitioner or a physician; a assistant spa director working with me, had a face to face encounter that - meets the physician face to face encounter requirements with this patient as dated. LIA CHANEY DO Jul 14, 2022 06:57
[2022-07-14 07:30] VITALS: BP 110/67
[2022-07-14] MEDS: CEPHALEXIN 250 MG (KEFLEX) CAP PO SCH (08:37)
[2022-07-14] MEDS: FOLIC ACID 1 MG TAB PO SCH (08:37)
[2022-07-14] MEDS: polyethylene glycoL POWDER 17 GM (MIRALAX) PACK PO SCH (08:37)
[2022-07-14] MEDS: TAMSULOSIN 0.4 MG (FLOMAX) CAP PO SCH (08:37)
[2022-07-14] MEDS: DOCUSATE SODIUM 100 MG (COLACE) CAP PO SCH (08:37)
[2022-07-14] MEDS: SENNA W/DOCUSATE (SENOKOT S) TABLET PO SCH (08:37)
[2022-07-14] MEDS: ASPIRIN 81 MG CHEW (CHILDREN'S ASA) PO SCH (08:37)
[2022-07-14] MEDS: BISACODYL 10 MG SUPP (DULCOLAX) RC SCH (08:44)
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
== END 2022-07-14 10:40 | disposition home health service (06) | DRG 560 ==
PROVIDERS: ADMIT Internal Medicine; ATTEND Internal Medicine
DX: Z47.89 Encounter for other orthopedic aftercare (principal); E87.1 Hypo-osmolality and hyponatremia; G95.9 Disease of spinal cord, unspecified; T81.41XA Infection following a procedure, superficial incisional surgical site, initial encounter; L03.221 Cellulitis of neck; S14.107D Unspecified injury at C7 level of cervical spinal cord, subsequent encounter; S12.600D Unspecified displaced fracture of seventh cervical vertebra, subsequent encounter for fracture with routine healing; S34.101D Unspecified injury to L1 level of lumbar spinal cord, subsequent encounter; Z66 Do not resuscitate; S24.101D Unspecified injury at T1 level of thoracic spinal cord, subsequent encounter; S22.019D Unspecified fracture of first thoracic vertebra, subsequent encounter for fracture with routine healing; S22.039D Unspecified fracture of third thoracic vertebra, subsequent encounter for fracture with routine healing; N31.9 Neuromuscular dysfunction of bladder, unspecified; N40.1 Benign prostatic hyperplasia with lower urinary tract symptoms; R33.9 Retention of urine, unspecified; R41.0 Disorientation, unspecified; R41.89 Other symptoms and signs involving cognitive functions and awareness; R46.89 Other symptoms and signs involving appearance and behavior; I95.1 Orthostatic hypotension; I25.10 Atherosclerotic heart disease of native coronary artery without angina pectoris; E78.00 Pure hypercholesterolemia, unspecified; R09.02 Hypoxemia; I48.91 Unspecified atrial fibrillation; I12.9 Hypertensive chronic kidney disease with stage 1 through stage 4 chronic kidney disease, or unspecified chronic kidney disease; E11.22 Type 2 diabetes mellitus with diabetic chronic kidney disease; Z79.4 Long term (current) use of insulin; Z95.5 Presence of coronary angioplasty implant and graft; Z98.1 Arthrodesis status; Z79.02 Long term (current) use of antithrombotics/antiplatelets; Z79.82 Long term (current) use of aspirin; Z79.899 Other long term (current) drug therapy; Z88.5 Allergy status to narcotic agent
CPT/HCPCS: 36415; 80053; 81000; 82947; 85025; 87088

== ENCOUNTER → 2022-10-02 | Outpatient (CLI) | payer MEDICARE ==
[~2022-10-02] MED LIST changes: +ACET-2267 PO; -ACETAMINOPHEN 325 MG TABLET PO PRN; +ACHYD1T PO; -ALPRAZolam 0.25 MG (XANAX) TAB PO PRN; +ASPI-999 PO; +ASPI81TA64 PO; +ATOR10TA66 PO; +BISA10SU58 RC; +BISA10SU8 RC; -BISACODYL 10 MG SUPP (DULCOLAX) PR PRN; -CALCIUM CARBONATE 500 MG (TUMS) TAB.CHEW PO PRN; -DOCUSATE SODIUM 100 MG (COLACE) CAP PO PRN; -FLEET ENEMA ADULT 1 EA BTL PR PRN; +GABA300C PO; +HEPA500055 SQ; +HYOS0.1283 SL; +INSU100I10 SQ; +INSU100I14 SQ; +INSU100V16 SC; +INSU100V42 SQ; +INSU100V5 SC; +LIDO700A45 TP; -LOPERAMIDE 2 MG (IMODIUM) TABLET PO PRN; +MELA10TA2 PO; -MELATONIN 3 MG TABLET PO PRN; +METH-731 PO; +MULT-1137 PO; +NEOM28OI TP; -ONDANSETRON 4 MG (ZOFRAN) ORAL DISSOLVE TAB PO PRN; +OXC5T PO; +OXYB10TA6 PO; +OXYB15TA19 PO; +OXYC1TAB11 PO; +POLY17PO6 PO; +PRAV40TA2 PO; +SENN-109 PO; +SENN-271 PO; +TMSL.4C PO; +TRZ50T PO; -diphenhydrAMINE 25 MG TAB (BENADRYL) PO PRN; -guaiFENesin/CODEINE (ROBITUSSIN AC) 10ML UDC PO PRN
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
== END ==
LOC: RAD 09:37
PROVIDERS: ATTEND Nurse Practitioner Family
DX: M51.26 Other intervertebral disc displacement, lumbar region (principal); M47.816 Spondylosis without myelopathy or radiculopathy, lumbar region; M48.061 Spinal stenosis, lumbar region without neurogenic claudication; M51.36 Other intervertebral disc degeneration, lumbar region; M43.17 Spondylolisthesis, lumbosacral region; M51.37 Other intervertebral disc degeneration, lumbosacral region; M47.817 Spondylosis without myelopathy or radiculopathy, lumbosacral region
CPT/HCPCS: 72148